=== PATIENT | female | born 1950 ===

== ENCOUNTER 2020-06-24 10:24 | Outpatient (REF) | payer MEDICARE, SELFPAY | END 2020-06-24 10:25 | disposition home or self-care (01) | LOC: HO.LAB 10:24 | PROVIDERS: PCP Internal Medicine; Visit Provider Internal Medicine | DX: Z20.828 Contact with and (suspected) exposure to other viral communicable diseases (principal) | CPT/HCPCS: C9803; U0003 ==

== ENCOUNTER 2020-07-06 16:45 | Outpatient (REF) | payer MEDICARE, SELFPAY | END 2020-07-06 16:46 | disposition home or self-care (01) | LOC: HO.LAB 16:45 | PROVIDERS: Visit Provider Internal Medicine | DX: Z20.828 Contact with and (suspected) exposure to other viral communicable diseases (principal) | CPT/HCPCS: C9803; U0003 ==

== ENCOUNTER 2020-11-22 12:28 | Emergency (ER) | payer MEDICARE, SELFPAY ==
[2020-11-22 12:30] VITALS: BP 115/68; PULSE 78; RESP 16; TEMP 36.9; O2SAT 98; BMI 30.7
--- NOTE | 2020-11-22 13:29 | ED.EAR ---
HPI - Ear Problem General Chief complaint: Ear Problems Stated complaint: R ear pain Time Seen by Provider: 11/22/20 12:58 Source: patient Mode of arrival: ambulatory Limitations: no limitations History of Present Illness HPI Narrative: 69-year-old female with a past medical history of COVID-19 in June 2020, fibromyalgia, postmenopausal and asthma presenting to the ED with complaints of ringing in the right ear over the past 3 weeks worse at nighttime. Reports that she followed up with an Urgent Care and they told her she had mild wax the left ear due to she had ringing bilateral ears they removed 3 little small pieces of wax and she reports the ring to the left ear completely resolved although she continues to have the right ear ringing. She reports that she followed up with her PCP and they gave her some drops in her ears and she use that as prescribed and she still continues to have the right ear ringing. Reports that she has a ear nose and throat doctor appointment on January 07 although she feels like she needs answer sooner than that. She denies any other symptoms complaints or concerns at this time. Complaint: other (Ringing in right ear) Location: right ear Duration: constant Severity: moderate Relieving factors: nothing Exacerbating factors: other (At nighttime) Context: recent illness (Reports she had COVID in June 2020) Discharge from ear: no Treatment prior to arrival: eardrops and attempt at ear wax removal Related Data Previous Rx's Medication Instructions Recorded gabapentin 600 mg tablet 600 mg PO TID #360 tab 07/01/20 methylprednisolone 4 mg tablets in See Rx Instructions PO PER PKG DIR 07/24/20 a dose pack #21 ea lorazepam [Ativan] 1 mg PO TID PRN #15 tab 11/22/20 Allergies Allergy/AdvReac Type Severity Reaction Status Date / Time oxycodone [Percocet] Allergy Unknown Unknown Verified 07/24/20 10:44 Review of Systems Review of Systems: Constitutional : No Weight loss, No Fever, No Chills, No Night Sweats, No Fatigue, NoMalaise ENT/Mouth: Positive ringing in the ear, No ear pain, No sore throat, No Difficulty swallowing Cardiovascular : No Chest Pain, No SOB, No Dyspnea on Exertion, No Orthopnea, NoEdema, No Palpitations Respiratory : No Cough, No Sputum, No Wheezing, No Dyspnea Gastrointestinal : No Nausea, No Vomiting, No abdominal pain, No Diarrhea, No blood streaked emesis, No coffee-ground emesis, No gross hematemesis, No blood streak stool, No gross hematochezia, No Melena Genitourinary : No irregular bleeding, No Dysuria, No Urinary Frequency, No Hematuria,No Urinary Incontinence, No Urgency, No Flank Pain Musculoskeletal : No joint pain, No Myalgias, No Joint Swelling Skin : No Skin Lesions, No rash Neuro : No Weakness, No Numbness, No Paresthesias, No Loss of Consciousness, NoDizziness, No Headache Psych : No Social Issues, Heme/Lymph: No Bruising, No Bleeding,No Lymphadenopathy Endocrine : No Polyuria, No Polydipsia, No Temperature Intolerance Yes all other systems are reviewed and are negative [facility] Past Medical History Attestation statement: The following information was validated with the patient. Medical History Asthma Fibromyalgia Surgical History H/O right knee surgery History of carpal tunnel release History of hysterectomy History of lumbar surgery Family History Family History Father Medical history unknown Mother Asthma Diabetes Hypertension Breast cancer Sister Breast cancer Social History Social History Alcohol intake: never Smoking Status: Never smoker Advance Directives: No Advance Directives Information Provided: No Physical Exam Vital Signs: Vital Signs: Last Vital Signs Temp 98.4 F 11/22/20 12:30 Pulse 78 11/22/20 12:30 Resp 16 11/22/20 12:30 BP 115/68 11/22/20 12:30 Pulse Ox 98 11/22/20 12:30 Body Mass Index 30.7 vital signs have been reviewed as normal and appeared to be correct. Blood pressure normal. Heart rate normal. Respiration rate normal. Temperature normal. Oxygen saturation normal. Appearance: Alert. Oriented X3. No acute distress. Head: Normal external exam. Normocephalic. Atraumatic. Eyes: PERRLA. EOMI. Conjunctiva and sclera normal. Eyelids normal. ENT: EAC normal. TM's Normal. Pharynx normal. Uvula midline. Moist mucous membranes. Neck: Normal inspection. Neck supple. FROM. No adenopathy. Thyroid Normal. No meningeal signs. No neck mass noted. CVS: Normal heart rate and rhythm. Heart sound normal. No murmurs noted. Pulses normal throughout. Respiratory: No respiratory distress. Painless inspiration. Breath sounds normal. No wheezes/rales/rhonchi noted. Chest nontender. No accessory muscle usage noted or decreased air movement noted. Back: Full range of motion noted. Skin: Skin warm and dry. Normal skin color. Normal skin turgor. No rashes/lesions/lacerations noted. Extremities: Extremities exhibit normal range of motion. Extremities nontender. Neuro: Oriented X 3. No motor deficit. No sensory deficit. Reflexes normal. Course Course Course Narrative: 69-year-old female who had COVID in June 2020 presenting to the ED with ringing to the right ear over the past 3 weeks despite being seen at the urgent care and had left earwax removal reports that the left ear ringing completely resolved after the 3 small pieces of earwax removal although she did not have anything removed to the right ear due to they told her she did not have any wax and she reports that the rain continues and is worsened at night. She denies any recent travel or any other symptoms or trauma to the ears. I attempted to remove small amount of ear wax that she had and there and she still has a ringing. She has no focal neuro deficits she denies any dizziness/nausea/vomiting. Therefore at this time will give her Ativan to go home and instructions to follow-up with ear nose and throat on January 07 as scheduled. Patient understands agrees with this plan. [facility] - Ear Medical Records Attestation: I reviewed the patient's medical records. Discharge Plan Discharge Clinical Impression: Right-sided tinnitus Patient Disposition: Home, Self-Care Instructions: Tinnitus (ED) Prescriptions: New lorazepam [Ativan] 1 mg tablet 1 mg PO TID PRN (Reason: anxiety) Qty: 15 RF: 0 No Action gabapentin 600 mg tablet 600 mg PO TID Qty: 360 RF: 8 methylprednisolone [Medrol (Dominic)] 4 mg tablets,dose pack See Rx Instructions PO PER PKG DIR Qty: 21 RF: 0 Referrals: Adan Johnson [Physician] - 1 day (Call to see if you can make a sooner follow-up appointment with this ear nose and throat doctor) Print Language: Omani
== END 2020-11-22 13:44 | disposition home or self-care (01) ==
PROVIDERS: Emergency Provider Emergency Medicine; PCP Internal Medicine
DX: H93.11 Tinnitus, right ear (principal); Z79.899 Other long term (current) drug therapy; Z86.16 Personal history of COVID-19
CPT/HCPCS: 99283

== ENCOUNTER 2021-01-14 07:57 | Outpatient (REF) | payer MEDICARE, SELFPAY | END 2021-01-14 07:58 | disposition home or self-care (01) | LOC: HO.LAB 07:57 | PROVIDERS: PCP Internal Medicine; Visit Provider Obstetrics & Gynecology | DX: R32 Unspecified urinary incontinence (principal) | CPT/HCPCS: 87086; 99212 ==

== ENCOUNTER 2021-01-19 13:45 | Outpatient (REF) | payer MEDICARE, SELFPAY ==
--- NOTE | ~2021-01-19 | CT_ITS ---
EXAMINATION: CT HEAD WITHOUT CONTRAST CLINICAL INFORMATION: Headache COMPARISON: None TECHNIQUE: Contiguous axial imaging was performed from the skull base to vertex without intravenous administration of contrast. This CT examination was performed using dose optimization techniques as appropriate, variously including the following: *Automated exposure control *Adjustment of mA and/or kV according to patient size (this includes techniques or standardized protocols for targeted exams where dose is matched to indication/reason for exam; i.e. extremities or head) *Use of iterative reconstruction technique DLP: 622 mGy-cm FINDINGS: There is no evidence of acute intracranial hemorrhage or territorial infarction. No abnormal mass effect or midline shift is seen. Pedraza to white matter differentiation is well preserved. No extra-axial fluid collections are identified. The ventricles are normal in size. There is no abnormal attenuation within the brain parenchyma. The osseous structures and soft tissues are normal. The mastoid air cells and visualized portions of the paranasal sinuses are well aerated. CT/CT head/brain wo con IMPRESSION: No acute intracranial process seen.
== END 2021-01-19 13:46 | disposition home or self-care (01) ==
LOC: HO.CT 13:45
PROVIDERS: Visit Provider Internal Medicine
DX: R51.9 Headache, unspecified (principal)
CPT/HCPCS: 70450

== ENCOUNTER 2021-01-20 08:30 | Outpatient (REF) | payer MEDICARE, SELFPAY ==
--- NOTE | ~2021-01-20 | MM_ITS ---
EXAMINATION: BONE DENSITOMETRY CLINICAL INDICATION: Asymptomatic menopausal state. COMPARISON: None (current study represents initial baseline exam). TECHNIQUE: Using a [employer] DXA System (software version: 13.1) manufactured by [employer], dual-energy x-ray absorptiometry was performed of the lumbar spine and left hip. The images are of good technical quality. Summary results are attached. FINDINGS: AP SPINE L1-L2 (excluding L3 and L4): The data of L1-L4 has been changed to exclude the L3 and L4 vertebral bodies, because degenerative changes L3 and hardware L4 may cause overestimation of lumbar spine density. BMD 1.142 g/cm2, Z-score 1.4, T-score -0.2, normal. LEFT FEMUR, NECK: BMD 0.781 g/cm2, Z-score -0.3, T-score -1.9, osteopenia. LEFT FEMUR, TOTAL: BMD 0.934 g/cm2, Z-score 0.7, T-score -0.6, normal. IDENTIFIED RISK FACTORS: Early menopause, secondary osteoporosis, anticonvulsant, hysterectomy, bilateral oophorectomy. HISTORY OF FRACTURE: None listed. MEDICATIONS: Vitamin D. MM/XR DEXA axial skeleton IMPRESSION: 1. DIAGNOSIS: Osteopenia based on the lowest T-score value of -1.9 in the femoral neck applying World Health Organization criteria. 2. 10-YEAR FRACTURE RISK PREDICTION, FRAX: Major osteoporotic fracture (clinical spine, forearm, hip or shoulder) 5.9%. Hip fracture 0.9%. 3. Treatment Recommendations: NOF guidelines recommend consideration for treatment in postmenopausal women and men age 50 and older presenting with the following: -A hip or vertebral (clinical or morphometric) fracture. -T-score less than or equal to -2.5 at the femoral neck or spine after appropriate evaluation to exclude secondary causes. -Low bone mass at the hip or spine and a 10-year fracture probability by FRAX of greater than or equal to 3% for hip fracture or greater than or equal to 20% for major osteoporotic fracture based on the [place] adapted WHO algorithm. 4. Other Recommendations: All treatment decisions require clinical judgment and consideration of individual patient factors, including patient preferences, comorbidities, previous drug use, risk factors not captured in the FRAX model (e.g. frailty, falls, vitamin D deficiency, increased bone turnover, interval significant decline in bone density) and possible under or overestimation of fracture risk by FRAX. Additional medical evaluation for secondary cause of low bone mineral density may be appropriate. FUTURE SCAN RECOMMENDATION: People with diagnosed cases of osteoporosis or at high risk for fracture should have regular bone mineral density tests. For patients eligible for Medicare, routine testing is allowed once every 2 years. The testing frequency can be increased to one year for patients who have rapidly progressing disease, those who are receiving or discontinuing medical therapy to restore bone mass, or have additional risk factors.
== END 2021-01-20 08:31 | disposition home or self-care (01) ==
LOC: HO.MAMMO 08:30
PROVIDERS: PCP Internal Medicine; Visit Provider Nurse Practitioner Family
DX: Z13.820 Encounter for screening for osteoporosis (principal); M85.80 Other specified disorders of bone density and structure, unspecified site; Z78.0 Asymptomatic menopausal state; Z90.722 Acquired absence of ovaries, bilateral; Z98.890 Other specified postprocedural states; Z79.899 Other long term (current) drug therapy
CPT/HCPCS: 77080

== ENCOUNTER 2021-02-01 09:54 | Outpatient (REF) | payer MEDICARE, SELFPAY | END 2021-02-01 09:55 | disposition home or self-care (01) | LOC: HO.LNP 09:54 | PROVIDERS: PCP Internal Medicine | DX: R32 Unspecified urinary incontinence (principal) | CPT/HCPCS: 87086; 99202 ==

== ENCOUNTER → 2021-03-23 08:53 | Outpatient (BNVA) | payer MEDICARE, SELFPAY | PROVIDERS: PCP Internal Medicine | DX: R32 Unspecified urinary incontinence (principal) | CPT/HCPCS: 51798; 99212 ==

== ENCOUNTER 2021-08-04 12:36 | Outpatient (REF) | payer MEDICARE, SELFPAY ==
[2021-08-04 12:53] LABS: MANUAL DIFF FLAG NO
[2021-08-04 13:39] LABS: Basophils Percent Auto 0.4 % (0-2); Eosinophils Percent Auto 0.2 % (0-4); Hematocrit 39.7 % (37.0-47.0); Hemoglobin 12.3 g/dl (12.0-16.0); Imm Gran Abs Auto 0.01 X10*3/uL (0.00-0.03); Imm Gran Pct Auto 0.2 % (0.0-0.4); Lymphocytes Absolute Auto 1.7 X10*3/uL (1.2-4.9); Lymphocytes Percent Auto 32.7 % (20-40); Mean Corpuscular Hemoglobin 27.3 pg (27.0-33.0); Mean Corpuscular Volume 88.2 fL (80.0-98.0); Mean Platelet Volume 11.7 fL (9.4-12.3); Monocytes Absolute Auto 0.3 X10*3/uL (0.1-1.2); Monocytes Percent Auto 4.8 % (2-11); Neutrophils Absolute Auto 3.2 x10*3/uL (2.0-8.3); Neutrophils Percent Auto 61.7 % (45-73); Platelet Count 188 X10*3/uL (160-400); Red Cell Distribution Width 13.7 % (11.0-16.0); White Blood Count 5.2 X10*3/uL (4.8-10.8)
[2021-08-04 13:54] LABS: Anion Gap 14 (12-20); Blood Urea Nitrogen 16 mg/dL (9-16); Carbon Dioxide 24 mmol/L (22-29); Chloride 107 mmol/L (96-108); Estimated Glomerular Filt Rate > 60; Glucose Random 94 mg/dL (60-115); Potassium 3.9 mmol/L (3.3-5.1); Sodium 141 mmol/L (135-145)
== END 2021-08-04 12:37 | disposition home or self-care (01) ==
LOC: HO.LAB 12:36
PROVIDERS: PCP Internal Medicine; Visit Provider Internal Medicine
DX: Z13.0 Encounter for screening for diseases of the blood and blood-forming organs and certain disorders involving the immune mechanism (principal); R51.9 Headache, unspecified
CPT/HCPCS: 36415; 80048; 85025

== ENCOUNTER 2021-08-09 08:05 | Outpatient (REF) | payer MEDICARE, SELFPAY ==
--- NOTE | ~2021-08-09 | US_ITS ---
EXAMINATION: US ABDOMEN COMPLETE CLINICAL INFORMATION: Unspecified abdominal pain. COMPARISON: None TECHNIQUE: Real-time imaging of the abdominal viscera. FINDINGS: PANCREAS: The pancreas is partially obscured by gas. Visualized head and the body of the pancreas is unremarkable. ABDOMINAL AORTA: The proximal, mid, and distal segments are normal in caliber. INFERIOR VENA CAVA: Unremarkable LIVER: The liver is normal in size. The liver contour is normal. There is increased liver echogenicity. No focal hepatic lesion. There is no intrahepatic biliary duct dilatation seen. GALLBLADDER: Surgically absent. COMMON BILE DUCT: Normal in caliber measuring 0.9 cm in diameter. RIGHT KIDNEY: Normal. No hydronephrosis. No renal calculi or focal parenchymal lesions. The kidney measures 8.7 cm in maximum dimension. LEFT KIDNEY: Normal. No hydronephrosis. No renal calculi or focal parenchymal lesions. The kidney measures 8.6 cm in maximum dimension. SPLEEN: Normal. The spleen measures 7.4 cm in maximum dimension. FREE FLUID: None. US/US abdomen complete IMPRESSION: Diffuse hepatic steatosis without focal lesion. Rest of the abdominal ultrasound is unremarkable.
== END 2021-08-09 08:06 | disposition home or self-care (01) ==
LOC: HO.US 08:05
PROVIDERS: PCP Internal Medicine; Visit Provider Internal Medicine
DX: R10.9 Unspecified abdominal pain (principal)
CPT/HCPCS: 76700

== ENCOUNTER → 2021-09-10 08:10 | Outpatient (BNVA) | payer MEDICARE, SELFPAY | PROVIDERS: PCP Internal Medicine; Referring Provider Internal Medicine; Visit Provider Nurse Practitioner Family | DX: Z13.89 Encounter for screening for other disorder (principal) | CPT/HCPCS: 99202 ==

== ENCOUNTER 2021-09-10 09:01 | Outpatient (REF) | payer MEDICARE, SELFPAY ==
[2021-09-11 13:43] LABS: H Pylori Breath Test Negative (Negative)
== END 2021-09-10 09:02 | disposition home or self-care (01) ==
LOC: HO.LNP 09:01
PROVIDERS: Visit Provider Nurse Practitioner Family
DX: R10.10 Upper abdominal pain, unspecified (principal); K58.2 Mixed irritable bowel syndrome; K21.9 Gastro-esophageal reflux disease without esophagitis; Z86.19 Personal history of other infectious and parasitic diseases
CPT/HCPCS: 83013; 99202

== ENCOUNTER 2021-09-13 10:41 | Outpatient (REF) | payer MEDICARE, SELFPAY ==
[2021-09-13 12:29] LABS: Alanine Aminotransferase 11 U/L (0-31); Albumin Level 4.2 g/dL (3.5-5.0); Alkaline Phosphatase 51 U/L (39-117); Aspartate Amino Transferase 17 U/L (5-31); Bilirubin Direct 0.2 mg/dL (0.0-0.5); Bilirubin Total 0.5 mg/dL (0.0-1.0); Lipase 29 U/L (8-78); Total Protein 6.5 g/dL (6.5-8.0)
[2021-09-13 13:12] LABS: Folate 14.7 ng/mL (> or = 4.0); Vitamin B12 327 pg/mL (200-900)
[2021-09-14 05:39] LABS: HBS Num1 0.04 mIU/mL (0-7.99); HBc Num1 0.05 S/CO (0.00-0.79); Hepatitis B Core Antibody Nonreactive (Nonreactive); ~HepC Num1 3.37 S/CO (0.00-0.79); ~Hepatitis B Surface Antibody NONREACTIVE (Nonreactive); ~Hepatitis C Antibody Reactive (Nonreactive)
[2021-09-14 05:42] LABS: HBsAGNum1 0.19 S/CO (0.00-0.99); Hepatitis B Surface Antigen Negative (Negative)
[2021-09-15 08:40] LABS: Hepatitis A Antibody IgM 0.42 Index (0-0.79); ~Hepatitis A Antibody IgM Nonreactive (Nonreactive)
[2021-09-16 07:51] LABS: HCV Log PCR <1.18 NOT DETECTED Log IU/mL (NOT DETECTED); HepC Viral Load <15 NOT DETECTED IU/mL (NOT DETECTED)
[2021-09-17 01:17] LABS: Vitamin D 25-OH, D2 <4 ng/mL; Vitamin D 25-OH, D3 18 ng/mL; Vitamin D 25-OH, Total 18 ng/mL (30-100)
[2021-09-17 13:40] LABS: Transglutaminase Ab IgG <1.0 U/mL; Transglutaminase IgA <1.0 U/mL
== END 2021-09-13 10:42 | disposition home or self-care (01) ==
LOC: HO.XRAY 10:41
PROVIDERS: PCP Internal Medicine; Visit Provider Nurse Practitioner Family
DX: R94.5 Abnormal results of liver function studies (principal); R19.7 Diarrhea, unspecified; E55.9 Vitamin D deficiency, unspecified; R14.0 Abdominal distension (gaseous); Z86.19 Personal history of other infectious and parasitic diseases
CPT/HCPCS: 36415; 80076; 82306; 82607; 82746; 83690; 84443; 86364; 86704; 86706; 86709; 86803; 87340; 87522

== ENCOUNTER → 2021-09-20 08:48 | Outpatient (BNVA) | payer MEDICARE, SELFPAY | PROVIDERS: PCP Internal Medicine | DX: N32.81 Overactive bladder (principal) | CPT/HCPCS: Q3014 ==

== ENCOUNTER → 2021-10-13 08:04 | Outpatient (BNVA) | payer MEDICARE, SELFPAY | PROVIDERS: PCP Internal Medicine; Visit Provider Obstetrics & Gynecology | DX: L72.3 Sebaceous cyst (principal) | CPT/HCPCS: 99212 ==

== ENCOUNTER → 2021-11-10 09:49 | Outpatient (BNVA) | payer MEDICARE, SELFPAY | PROVIDERS: PCP Internal Medicine; Referring Provider Internal Medicine; Visit Provider Nurse Practitioner Family | DX: R10.10 Upper abdominal pain, unspecified (principal); K58.1 Irritable bowel syndrome with constipation; K21.9 Gastro-esophageal reflux disease without esophagitis; Z79.899 Other long term (current) drug therapy; Z86.19 Personal history of other infectious and parasitic diseases | CPT/HCPCS: 99212 ==

== ENCOUNTER 2022-01-04 11:04 | Outpatient (REF) | payer MEDICARE, SELFPAY ==
[2022-01-04 13:24] LABS: Appearance Urine CLEAR; Color Urine YELLOW; Glucose Urine UA NEG (NEG); Leukocyte Esterase Urine 1+ (NEG); Nitrite Urine NEG (NEG); Specific Gravity - Urine 1.025 (1.005-1.025); Urine Blood NEG (NEG); Urine Ketones NEG (NEG); Urine Protein NEG (NEG-TRACE)
[2022-01-04 13:52] LABS: Squamous Epithelial Cell Urine 2+ /LPF
[2022-01-04 13:53] LABS: Bacteria Urine 1+ /LPF; RBC Urine 0 /HPF (0)
== END 2022-01-04 11:05 | disposition home or self-care (01) ==
LOC: HO.LAB 11:04
PROVIDERS: Visit Provider Urology
DX: R32 Unspecified urinary incontinence (principal)
CPT/HCPCS: 81001; 87086

== ENCOUNTER 2022-01-19 09:49 | Outpatient (REF) | payer MEDICARE, SELFPAY ==
[2022-01-19 10:44] LABS: Appearance Urine CLEAR; Color Urine YELLOW; Glucose Urine UA NEG (NEG); Leukocyte Esterase Urine 1+ (NEG); Nitrite Urine NEG (NEG); Specific Gravity - Urine >= 1.030 (1.005-1.025); Urine Blood NEG (NEG); Urine Ketones NEG (NEG); Urine Protein NEG (NEG-TRACE)
[2022-01-19 11:14] LABS: Mucus Urine 2+ /LPF; RBC Urine 0 /HPF (0); Squamous Epithelial Cell Urine 2+ /LPF
[2022-01-19 11:15] LABS: Bacteria Urine TRACE /LPF
== END 2022-01-19 09:50 | disposition home or self-care (01) ==
LOC: HO.LAB 09:49
PROVIDERS: PCP Internal Medicine; Visit Provider Urology
DX: R32 Unspecified urinary incontinence (principal)
CPT/HCPCS: 81001; 87086

== ENCOUNTER → 2022-01-25 08:26 | Outpatient (BNVA) | payer MEDICARE, SELFPAY | PROVIDERS: PCP Internal Medicine; Visit Provider Obstetrics & Gynecology | DX: Z01.419 Encounter for gynecological examination (general) (routine) without abnormal findings (principal); N95.2 Postmenopausal atrophic vaginitis; Z78.0 Asymptomatic menopausal state | CPT/HCPCS: 99212 ==

== ENCOUNTER 2022-01-28 09:00 | Outpatient (REF) | payer MEDICARE, SELFPAY ==
--- NOTE | ~2022-01-28 | XR_ITS ---
EXAMINATION: XR LUMBOSACRAL SPINE CLINICAL INFORMATION: Low back pain. COMPARISON: None TECHNIQUE: Three views of the lumbosacral spine. FINDINGS: There is normal lumbar lordosis. Mild loss of L2-L3 and L3-L4 disc height is seen. The vertebral heights, alignment are normal. No visible acute fracture, dislocation or lytic process seen. The SI joints are symmetrical and normal. There is a metallic device stabilizing L4-L5 spinous processes posteriorly. There is a radiopaque density in the right midabdomen in the paraspinal region question phlebolith versus stone. There are several phleboliths in the left pelvis and sherine in the right pelvis. XR/XR lumbar spine 2-3V IMPRESSION: Mild degenerative disc changes L2-L3, L3-L4 disc levels with ventral spondylosis. No visible acute fracture, dislocation or subluxation seen. There is metallic device stabilizing spinous processes at the L4-L5 disc level. No visible acute fracture or dislocation.
== END 2022-01-28 09:01 | disposition home or self-care (01) ==
LOC: HO.XRAY 09:00
PROVIDERS: PCP Internal Medicine; Visit Provider Internal Medicine
DX: M54.9 Dorsalgia, unspecified (principal)
CPT/HCPCS: 72100

== ENCOUNTER 2022-03-03 08:13 | Day surgery (SDC) | payer MEDICARE, SELFPAY ==
[2022-02-25 10:46] VITALS: BMI 30.9
[2022-03-03 08:44] VITALS: BMI 30.9
--- NOTE | 2022-03-03 08:51 | MHC.SHP ---
Pre-Procedural Eval Section A Date of Service: 03/03/22 Section B Chief Complaint: reflux disease, screening Relevant Family History (Specify if Yes): No Relevant Social History: None Present Medications: see Short Stay Collaborative assessment Medical History: Significant History (Asthma COVID-19 Fibromyalgia History of hepatitis C Obesity Sebaceous cyst Vaginal cysts) History of Previous Operations: Relevant previous surgery/procedure and date(s) (H/O right knee surgery History of carpal tunnel release History of hysterectomy History of lumbar surgery) Allergies: Allergies Allergy/AdvReac Type Severity Reaction Status Date / Time oxycodone [Percocet] Allergy Unknown Unknown Verified 02/23/22 09:26 Review of Systems Sugical H&P ROS: Negative: Constitution, Cardiovascular, Respiratory, Neurological, Psychiatric, Hem-Onc, Allergic/Immunologic, Gastrointestinal, Genitourinary, Musculoskeletal, Integumentary, Endocrine and Eyes/Ears/Nose/Throat Exam Surgical H&P Exam: Normal: HEENT, Normal: Heart, Normal: Lungs, Normal: Extremities, Normal: Abdomen, Normal: Skin and Normal: Neurological Plan Diagnosis/Plan: Unchanged I have reviewed the history and physical and performed a pertinent physical examination on my patient. No changes have occurred unless specified.
[2022-03-03] MEDS: Lactated Ringers 1,000 ML 50 ML IVCONT (09:14)
--- NOTE | 2022-03-03 09:14 | HO.ANESPROP2 ---
HPI - Anesthesia Eval Consult details Narrative: 71 yo female patient for EGD, Colonoscopy PMF Active Problems Active Problems: All Active Problems (Updated 02/25/22 @ 10:44 by Julee Lei RN) Cerumen debris on tympanic membrane (Acute) Tinnitus of both ears (Acute) Adult general medical exam (Acute) Post-menopausal (Acute) Urinary incontinence (Acute) Headache (Acute) Abdominal pain (Acute) Well woman exam (Acute) Atrophic vaginitis (Acute) Menopause (Acute) Lumbar pain (Acute) History of hepatitis C (Acute) Obesity (Acute) Fibromyalgia (Acute) Asthma (Acute) Past Medical History Medical History Asthma COVID-19 Fibromyalgia History of hepatitis C Obesity Sebaceous cyst Vaginal cysts Family History Family History Father Medical history unknown Mother Asthma Diabetes Hypertension Breast cancer Sister Breast cancer Family history of problems with anesthesia: No Surgical History Surgical History H/O right knee surgery History of carpal tunnel release History of hysterectomy History of lumbar surgery History of Problems with Anesthesia: No Social History Social History Housing: Apartment Alcohol intake: never Patient Tobacco Use Status: Never used Tobacco e-Cigarette/Vaping Use: Never Used Second Hand Smoke Exposure: No Use of substances other than those prescribed or required for medical reasons: No Are you DNR?: No Advance Directives: No Advance Directives Information Provided: Yes service: No Current occupational status: retired Cognitive needs: No Hearing needs: No Vision needs: Yes Meds Allergies Allergy/AdvReac Type Severity Reaction Status Date / Time oxycodone [Percocet] Allergy Unknown Unknown Verified 02/23/22 09:26 Active Medications: Current Medications Albuterol Sulfate (Albuterol Sulfate (0.083%) 2.5 Mg/3 Ml Vial.Neb) 2.5 mg INHALE ONCE PRN PRN Reason: Shortness of Breath/Wheezing Lactated Ringer's (Lr) 1,000 mls @ 50 mls/hr IVCONT .Q20H JUAN Lactated Ringer's (Lr) 1,000 mls @ 50 mls/hr IVCONT .Q20H [facility] Last Admin: 03/03/22 09:14 Dose: 50 mls/hr Exam Exam Date and Time: March 03, 2022 0914 Height,Weight and Vital Signs: Height 4 ft 10 in Weight 67.132 kg Airway Mallampati Class: III TM Dist: >3cm Neck ROM: Full Loose/Missing/Broken Teeth: No (Per patient) Heart: RRR Lungs: CTAB Assessment and Plan Assessment Anesthesia Assessment: Anesthesia Plan Discussed and Chart Reviewed Final Anesthetic Review Family History of Problems with Anesthesia: No History of Problems with Anesthesia: No NPO: Yes ASA Class: II Final Preanesthetic Review: No Changes in Pt Med Stat, Meds/Allgs Chart Reviewed, Consent Obtained/Reviewed and Anes Risks/Benef Reviewed Patient Risk: Intermediate Procedure Risk: Low Assessment/Block/Sedation in SS: Assess/Block/Sedation-SS Anesthetic Plan Anesthetic Plan: MAC: Disposition: Standard PACU
[2022-03-03 09:15] VITALS: BP 110/55; PULSE 88; RESP 18; TEMP 36; O2SAT 98
--- NOTE | 2022-03-03 09:44 | W.PM.OPN ---
Operative Note Operative Note Date of Service: 03/03/22 Narrative: Operative Information Procedure Description: EGD, Colonoscopy Indication: GERD, screening Anesthesia: MAC FLEXIBLE TRANSORAL UPPER GASTROINTESTINAL ENDOSCOPY AND COLONOSCOPY PROCEDURE NOTE UPPER ENDOSCOPY Consent: Indications for the procedure and potential complications of bleeding, perforation, reaction to medications and missed diagnosis were discussed with the patient and informed consent was obtained. Instrument: Olympus GIF H 190 J mid size upper endoscope Monitoring: Vital signs and clinical assessment, continuous EKG monitoring, Pulse oximetry, Carbon Dioxide monitoring and blood pressure monitoring were done throughout the procedure. Procedure: The patient was placed in the left lateral decubitis position and pre-procedure medications were administered and a bite block was placed. The endoscope was inserted into the mouth and advanced under direct vision to the third part of duodenum. A careful inspection was made as the upper endoscope was withdrawn including a retroflexed examination of the proximal stomach; Findings and interventions are described below. Findings: Larynx:normal Esophagus: GE junction at 35 cm, diaphragm hiatus at 35 cm, mild esophagitis bx taken from GEJ, distal and proxiaml esophagus Stomach: Nodular mucosa. Biopsies were obtained to r/o h pylori. Grade 2 flap valve on retroflexed examination of the cardia. Duodenum: Normal bulb and descending duodenum, Intervention: Biopsies as noted above COLONOSCOPY Instrument: Olympus variable stiffness pediatric scope 190L Colonoscopy Monitoring: Vital signs and clinical assessment, continuous EKG monitoring, Pulse oximetry, Carbon Dioxide monitoring and blood pressure monitoring were done throughout the procedure. Colon withdrawal time was 10 minutes. Procedure: The patient was placed in the left lateral decubitis position and pre-procedure medications were administered. After a digital rectal examination of the ano-rectum, the video colonoscope was inserted into the rectum and advanced through the colon to the cecum/TI. The colonoscope was slowly withdrawn in a retrograde panoramic fashion and the colon mucosa was carefully examined including a retroflexed view of the rectum. Findings and interventions are described below. Procedure Difficulty:moderate, had to turn due to tortuous and redundant colon Findings: Terminal Ileum-not intubated Cecum:normal Ascending Colon: normal Transverse Colon -normal Descending Colon:normal Sigmoid Colon: diverticulosis Rectum: Retroflexion with small internal hemorrhoids, grade I Anorectum - normal Colon preparation: [place] Bowel Preparation Scale Right colon; 2 Transverse colon: 2 Left colon; 2 (0 = Unprepared colon segment with mucosa not seen due to solid stool that cannot be cleared. 1 = Portion of mucosa of the colon segment seen, but other areas of the colon segment not well seen due to staining, residual stool and/or opaque liquid. 2 = Minor amount of residual staining, small fragments of stool and/or opaque liquid, but mucosa of colon segment seen well. 3 = Entire mucosa of colon segment seen well with no residual staining, small fragments of stool or opaque liquid) Impression and Post Procedure Diagnosis: Endoscopy Findings: gastritis mild esophagitis Colonoscopy Findings: internal hemorrhoids diverticular disease redundant tortuous colon Plan: Await Pathology results Repeat Colonoscopy in 10 years or earlier if clinically indicated High fiber diet leaflet avoid straining at stool, epsom salts and sitz bath, anusol supps or cream if H pylori pos then treat Above findings were reviewed with the patient and relevant handouts were provided if indicated.
[2022-03-03 10:52] VITALS: BP 104/60; PULSE 70; RESP 16; TEMP 36.1; O2SAT 97
[2022-03-03 11:08] VITALS: BP 118/64; PULSE 70; RESP 16; TEMP 36.1; O2SAT 97
== END 2022-03-03 12:00 | disposition home or self-care (01) ==
PROVIDERS: PCP Internal Medicine; Visit Provider Internal Medicine Gastroenterology
PROC: (CPT 43239; principal; 2022-03-03 09:40)
DX: Z12.11 Encounter for screening for malignant neoplasm of colon (principal); K57.30 Diverticulosis of large intestine without perforation or abscess without bleeding; K64.0 First degree hemorrhoids; K58.1 Irritable bowel syndrome with constipation; K21.9 Gastro-esophageal reflux disease without esophagitis; K29.50 Unspecified chronic gastritis without bleeding; K20.80 Other esophagitis without bleeding; K44.9 Diaphragmatic hernia without obstruction or gangrene; M79.7 Fibromyalgia; J45.909 Unspecified asthma, uncomplicated; E66.9 Obesity, unspecified; Z68.30 Body mass index [BMI] 30.0-30.9, adult; R79.89 Other specified abnormal findings of blood chemistry; Z79.899 Other long term (current) drug therapy; Z88.8 Allergy status to other drugs, medicaments and biological substances; Z86.19 Personal history of other infectious and parasitic diseases; Z86.16 Personal history of COVID-19
CPT/HCPCS: 43239; G0121; 88305; 88342

== ENCOUNTER → 2022-03-18 08:06 | Outpatient (BNVA) | payer MEDICARE, SELFPAY | PROVIDERS: PCP Internal Medicine; Visit Provider Nurse Practitioner Family | DX: K21.9 Gastro-esophageal reflux disease without esophagitis (principal); K59.04 Chronic idiopathic constipation; K58.1 Irritable bowel syndrome with constipation; Z98.890 Other specified postprocedural states | CPT/HCPCS: 99212 ==

== ENCOUNTER → 2022-05-26 10:56 | Outpatient (BNVA) | payer MEDICARE, SELFPAY | PROVIDERS: PCP Internal Medicine; Visit Provider Urology | DX: N32.81 Overactive bladder (principal); R32 Unspecified urinary incontinence | CPT/HCPCS: Q3014 ==

== ENCOUNTER → 2022-07-18 07:53 | Outpatient (BNVA) | payer MEDICARE, SELFPAY | PROVIDERS: PCP Internal Medicine; Referring Provider Internal Medicine; Visit Provider Nurse Practitioner Family | DX: K21.9 Gastro-esophageal reflux disease without esophagitis (principal); K58.1 Irritable bowel syndrome with constipation | CPT/HCPCS: 99212 ==

== ENCOUNTER 2022-08-26 12:49 | Outpatient (REF) | payer MEDICARE, SELFPAY ==
--- NOTE | ~2022-08-26 | CT_ITS ---
EXAMINATION: CT HEAD WITHOUT CONTRAST CLINICAL INFORMATION: R51.9 - Headache, unspecified COMPARISON: CT had noncontrast 01/19/2021 TECHNIQUE: Contiguous axial imaging was performed from the skull base to vertex without intravenous administration of contrast. Additional 2-D coronal and sagittal reformatted images are generated on the CT workstation and uploaded to PACS. This CT examination was performed using dose optimization techniques as appropriate, variously including the following: *Automated exposure control *Adjustment of mA and/or kV according to patient size (this includes techniques or standardized protocols for targeted exams where dose is matched to indication/reason for exam; i.e. extremities or head) *Use of iterative reconstruction technique DLP: 699 mGy-cm FINDINGS: There is no intracranial hemorrhage, hematoma, or extra-axial fluid collection. The ventricles are normal in size. There is no hydrocephalus, edema, or mass effect. The valdivia-white matter differentiation appears well preserved . Again, there is incidental anterior falx calcification. There is no visible acute territorial infarct or mass lesion. The calvarium appears intact. There is no pneumocephalus or orbital emphysema. The visualized sinuses and middle ears and mastoid air cells show no significant mucosal thickening. There are no air-fluid levels. CT/CT head/brain wo IV con IMPRESSION: No acute intracranial abnormality.
== END 2022-08-26 12:50 | disposition home or self-care (01) ==
LOC: HO.CT 12:49
PROVIDERS: PCP Internal Medicine; Visit Provider Internal Medicine
DX: R51.9 Headache, unspecified (principal)
CPT/HCPCS: 70450

== ENCOUNTER 2022-09-12 08:04 | Outpatient (REF) | payer MEDICARE, SELFPAY ==
[2022-09-12 11:01] LABS: Folate 14.3 ng/mL (> or = 4.0); Vitamin B12 406 pg/mL (200-900)
[2022-09-17 14:28] LABS: Vitamin D 25-OH, D2 <4 ng/mL; Vitamin D 25-OH, D3 33 ng/mL; Vitamin D 25-OH, Total 33 ng/mL (30-100)
== END 2022-09-12 08:05 | disposition home or self-care (01) ==
LOC: HO.LAB 08:04
PROVIDERS: PCP Internal Medicine; Referring Provider Internal Medicine; Visit Provider Nurse Practitioner Family
DX: R19.7 Diarrhea, unspecified (principal); E55.9 Vitamin D deficiency, unspecified; K58.9 Irritable bowel syndrome, unspecified; K21.9 Gastro-esophageal reflux disease without esophagitis; K59.04 Chronic idiopathic constipation
CPT/HCPCS: 36415; 82306; 82607; 82746; 99212

== ENCOUNTER 2022-10-03 08:32 | Outpatient (REF) | payer MEDICARE, SELFPAY ==
[2022-10-03 09:53] LABS: Glucose Random 95 mg/dL (60-115)
[2022-10-03 10:02] LABS: Erythrocyte Sedimentation Rate 12 MM/HR (0-20)
[2022-10-03 10:23] LABS: Thyroid Stimulating Hormone 1.72 uIU/mL (0.32-4.0); Vitamin B12 480 pg/mL (200-900)
[2022-10-05 13:39] LABS: Transglutaminase Ab IgG <1.0 U/mL; Transglutaminase IgA <1.0 U/mL
[2022-10-05 14:07] LABS: Ceruloplasmin 22 mg/dL (18-53)
[2022-10-05 15:08] LABS: Anti Nuclear Antibody Screen NEGATIVE (NEGATIVE)
[2022-10-06 23:38] LABS: Prot Elec - Albumin 4.1 g/dL (3.8-4.8); Prot Elec - Alpha1 0.3 g/dL (0.2-0.3); Prot Elec - Alpha2 0.6 g/dL (0.5-0.9); Prot Elec - Beta 1 0.4 g/dL (0.4-0.6); Prot Elec - Beta 2 0.3 g/dL (0.2-0.5); Prot Elec - Gamma 0.6 g/dL (0.8-1.7); Prot Elec - Total Protein 6.3 g/dL (6.1-8.1)
== END 2022-10-03 08:33 | disposition home or self-care (01) ==
LOC: HO.LAB 08:32
PROVIDERS: PCP Internal Medicine; Visit Provider Psychiatry & Neurology Neurology
DX: R51.9 Headache, unspecified (principal); R53.83 Other fatigue; G62.9 Polyneuropathy, unspecified
CPT/HCPCS: 36415; 82390; 82607; 82947; 84165; 84443; 85652; 86038; 86039; 86364

== ENCOUNTER 2022-10-13 08:34 | Outpatient (REF) | payer MEDICARE, SELFPAY ==
[2022-10-16 23:08] LABS: Prot Elec - Albumin 4.5 g/dL (3.8-4.8); Prot Elec - Alpha1 0.3 g/dL (0.2-0.3); Prot Elec - Alpha2 0.7 g/dL (0.5-0.9); Prot Elec - Beta 1 0.4 g/dL (0.4-0.6); Prot Elec - Beta 2 0.3 g/dL (0.2-0.5); Prot Elec - Gamma 0.7 g/dL (0.8-1.7); Prot Elec - Total Protein 6.7 g/dL (6.1-8.1)
[2022-10-17 14:59] LABS: IgA 84 mg/dL (70-320); IgG 849 mg/dL (600-1540); IgM 51 mg/dL (50-300)
== END 2022-10-13 08:35 | disposition home or self-care (01) ==
LOC: HO.LAB 08:34
PROVIDERS: PCP Internal Medicine; Visit Provider Psychiatry & Neurology Neurology
DX: G62.9 Polyneuropathy, unspecified (principal)
CPT/HCPCS: 36415; 82784; 84165; 86334

== ENCOUNTER 2022-10-18 15:05 | Outpatient (REF) | payer MEDICARE, SELFPAY ==
--- NOTE | ~2022-10-18 | MR_ITS ---
EXAMINATION: MR angio head wo con, MR head/brain wo/w con CLINICAL INFORMATION: Pulsatile tinnitus, headache COMPARISON: CT head without contrast 08/26/2022 TECHNIQUE: Multiplanar multisequence MR imaging of the brain was obtained without and following the administration of 7 mL Gadavist intravenous contrast. Noncontrast [id number] MRA of the head was also the performed. FINDINGS: There is no acute infarct on diffusion-weighted imaging. There is no intracranial hemorrhage on iron-sensitive imaging. No extra-axial collection or mass effect/herniation. There are several scattered foci of nonspecific supratentorial white matter T2/FLAIR signal abnormality. The 7th and 8th cranial nerve complexes are symmetric in course, caliber, and enhancement characteristics. Major inner ear structures including the cochlea, semicircular canals, and vestibule are symmetric in morphology and demonstrate normal CSF signal. No enhancing intracanalicular or cerebellopontine angle mass lesion is visualized. No hydrocephalus. The ventricles are normal in morphology and size. No abnormal parenchymal or extra-axial enhancement. The midline structures are normal. The cerebellar tonsils are normally positioned. The craniocervical junction is normal. Marrow signal is within normal limits. The visualized soft tissues are without significant abnormality. No signal abnormality within the paranasal sinuses or within the mastoid air cells. Normal flow-related signal within the anterior circulation without evidence of focal stenosis or occlusion of the intradural internal carotid, middle cerebral, or anterior cerebral arteries. Normal flow-related signal within the posterior circulation without evidence of focal stenosis or occlusion of the intradural vertebral, basilar, superior cerebellar, or posterior cerebral arteries. No demonstrated intradural aneurysms. No evidence of arteriovenous shunting lesion MR/MR head/brain wo/w con IMPRESSION: 1. Unremarkable contrast enhanced MRI of the brain. No evidence of retrocochlear pathology or etiology for pulsatile tinnitus is identified. 2. Normal MRA of the head. No arteriovenous shunting lesion is identified.
--- NOTE | ~2022-10-18 | MR_ITS ---
EXAMINATION: MR angio head wo con, MR head/brain wo/w con CLINICAL INFORMATION: Pulsatile tinnitus, headache COMPARISON: CT head without contrast 08/26/2022 TECHNIQUE: Multiplanar multisequence MR imaging of the brain was obtained without and following the administration of 7 mL Gadavist intravenous contrast. Noncontrast [id number] MRA of the head was also the performed. FINDINGS: There is no acute infarct on diffusion-weighted imaging. There is no intracranial hemorrhage on iron-sensitive imaging. No extra-axial collection or mass effect/herniation. There are several scattered foci of nonspecific supratentorial white matter T2/FLAIR signal abnormality. The 7th and 8th cranial nerve complexes are symmetric in course, caliber, and enhancement characteristics. Major inner ear structures including the cochlea, semicircular canals, and vestibule are symmetric in morphology and demonstrate normal CSF signal. No enhancing intracanalicular or cerebellopontine angle mass lesion is visualized. No hydrocephalus. The ventricles are normal in morphology and size. No abnormal parenchymal or extra-axial enhancement. The midline structures are normal. The cerebellar tonsils are normally positioned. The craniocervical junction is normal. Marrow signal is within normal limits. The visualized soft tissues are without significant abnormality. No signal abnormality within the paranasal sinuses or within the mastoid air cells. Normal flow-related signal within the anterior circulation without evidence of focal stenosis or occlusion of the intradural internal carotid, middle cerebral, or anterior cerebral arteries. Normal flow-related signal within the posterior circulation without evidence of focal stenosis or occlusion of the intradural vertebral, basilar, superior cerebellar, or posterior cerebral arteries. No demonstrated intradural aneurysms. No evidence of arteriovenous shunting lesion MR/MR angio head wo con IMPRESSION: 1. Unremarkable contrast enhanced MRI of the brain. No evidence of retrocochlear pathology or etiology for pulsatile tinnitus is identified. 2. Normal MRA of the head. No arteriovenous shunting lesion is identified.
== END 2022-10-18 15:06 | disposition home or self-care (01) ==
LOC: HO.MRI 15:05
PROVIDERS: PCP Internal Medicine; Visit Provider Psychiatry & Neurology Neurology
DX: R51.0 Headache with orthostatic component, not elsewhere classified (principal); Q27.30 Arteriovenous malformation, site unspecified
CPT/HCPCS: 70544; 70553; A9585

== ENCOUNTER 2022-11-06 10:45 | Emergency (ER) | payer MEDICARE, SELFPAY ==
--- NOTE | ~2022-11-06 | XR_ITS ---
EXAMINATION: XR chest 2V CLINICAL INFORMATION: Cough COMPARISON: Prior chest x-ray 2019 TECHNIQUE: XR chest 2V Lungs and Zonia: Mild interstitial opacification left lung base, could be a pericardial fat pad versus mild interstitial pneumonitis. Pleura: Normal. Costophrenic angles are sharp. No pneumothorax. Heart: The heart is normal in size. Mediastinum: The mediastinum is within normal limits.. Bones: Skeletal structures included are normal for patient's age. XR/XR chest 2V IMPRESSION: Mild opacification at left lung base, could be a pericardial fat pad versus mild interstitial pneumonitis. This is indeterminant appearance for COVID. Low-dose chest CT which has high sensitivity, could be utilized if clinically indicated.
[2022-11-06 11:09] VITALS: BP 116/72; PULSE 89; RESP 18; TEMP 37; O2SAT 95; BMI 31.3
--- NOTE | 2022-11-06 12:02 | ED.URI ---
HPI - URI/Sore Throat General Chief Complaint: Upper Respiratory Symptoms Stated Complaint: 11/05 Covid positive Time Seen by Provider: 11/06/22 11:52 Source: patient Mode of arrival: ambulatory Limitations: no limitations History of Present Illness HPI Narrative: 71 yo female with history of fibromyalgia, asthma presents to the ER with 3 days of cough, fever, headache, fatigue and wheezing. Patient took a home test for COVID which was positive yesterday. Patient reports she spoke to her primary care doctor on-call and they recommended she come into the ER for consultation for Paxlovid. Patient denies any chest pain or shortness of breath or leg swelling or leg pain Related Data Previous Rx's Medication Instructions Recorded famotidine 20 mg tablet (Pepcid) 20 mg PO BEDTIME #90 tabs 03/18/22 sennosides 8.6 mg tablet (Natural 17.2 mg PO BEDTIME constipation 03/18/22 Senna Laxative) #60 tabs oxybutynin chloride 10 mg 10 mg PO DAILY OAB 90 days #90 tabs 05/26/22 tablet,extended release 24 hr polyethylene glycol 3350 17 17 g PO DAILY #510 grams 07/18/22 gram/dose oral powder (Miralax) tizanidine 4 mg tablet 4 mg PO Q8H PRN headache #60 tabs 08/04/22 sumatriptan succinate 25 mg tablet 25 mg PO Q2-4H PRN migraine 09/02/22 headache #20 tabs pantoprazole 40 mg tablet,delayed 40 mg PO DAILY #90 tabs 09/12/22 release cholecalciferol (vitamin D3) 50 100 mcg PO DAILY #180 caps 09/13/22 mcg (2,000 unit) capsule cefuroxime axetil 250 mg tablet 250 mg PO BID #14 tabs 11/06/22 nirmatrelvir 300 mg (150 mg See Rx Instructions PO .COMPLEX 11/06/22 x2)-ritonavir 100 mg tablet,dose #30 ea pack(EUA) (Paxlovid) Allergies Allergy/AdvReac Type Severity Reaction Status Date / Time oxycodone [Percocet] Allergy Unknown Unknown Verified 11/06/22 11:09 Review of Systems Review of Systems: Yes all other systems are reviewed and are negative Constitutional: Constitutional: Reports no additional constitutional complaints, Denies body ache(s), Denies chills, Reports fatigue, Reports fever(s), Reports headache(s) and Denies weakness Eyes: Eyes: Reports no additional eye complaints and Denies change in vision ENT: Reports system reviewed and no additional complaints, except as documented, Denies dizziness, Reports headache(s), Denies nasal congestion, Denies nasal discharge and Denies neck pain Cardiovascular: Cardiovascular: Reports no additional cardiovascular complaints, Denies chest pain, Denies leg edema and Denies dyspnea Respiratory: Respiratory: Reports no additional respiratory complaints, Reports cough and Denies dyspnea Gastrointestinal: Gastrointestinal: Reports no additional gastrointestinal complaints, Denies abdominal pain, Denies diarrhea, Denies nausea and Denies vomiting Genitourinary: Genitourinary: Reports no additional female genitourinary complaints and Denies urinary incontinence Musculoskeletal: Musculoskeletal: Reports no additional musculoskeletal complaints, Denies back pain, Denies arthralgias, Denies joint swelling, Denies neck pain, Denies numbness and Denies tingling Integumentary/Breasts: Skin/Breast: Reports system reviewed and no additional complaints, except as docu and Denies rash Neurologic: Reports system reviewed and no additional complaints, except as documented, Denies Abnormal speech present, Denies dizziness, Reports headache(s), Denies numbness, Denies tingling and Denies weakness Endocrine: Endocrine: Reports fatigue PMFSH Past Medical History Attestation statement: The following information was validated with the patient. Source: old records reviewed and nursing notes reviewed Medical History Asthma COVID-19 Fibromyalgia History of hepatitis C Obesity Sebaceous cyst Vaginal cysts Surgical History H/O right knee surgery History of carpal tunnel release History of hysterectomy History of lumbar surgery Family History Family History Father Medical history unknown Mother Asthma Diabetes Hypertension Breast cancer Sister Breast cancer Social History Social History Housing: Apartment Alcohol intake: never Patient Tobacco Use Status: Never used Tobacco e-Cigarette/Vaping Use: Never Used Second Hand Smoke Exposure: No Advance Directives: Yes Advance Directives on File: Yes Advance Directives Date on File: 11/19/21 service: No Current occupational status: retired Cognitive needs: No Hearing needs: No Vision needs: Yes Physical Exam Vital Signs: Vital Signs: Last Vital Signs Temp 98.6 F 11/06/22 11:09 Pulse 89 11/06/22 11:09 Resp 18 11/06/22 11:09 BP 116/72 11/06/22 11:09 Pulse Ox 95 11/06/22 11:09 O2 Del Method Room Air 11/06/22 11:09 BMI result Body Mass Index 31.3 Const: General: cooperative, healthy appearing, comfortable and no acute distress Orientation/consciousness: patient oriented x3 Limitations: no limitations HEENT: Head: Yes normal to inspection Ears: hearing grossly normal bilaterally and TM's normal bilaterally General nose exam: Normal external nose present Face and sinus: Yes normal facial exam Mouth: Normal oral and palatal mucosa present Throat: Yes posterior oropharynx normal, Yes tonsils normal and Yes uvula midline Eyes: General: appearance normal, both eyes and all related structures Pupils: Equal, round and reactive pupils present Neck: Neck: Yes normal visual inspection, Yes full ROM, Yes no lymphadenopathy and Yes no meningeal signs Chest: Chest palpation & inspection: normal inspection of the chest Resp: Effort & Inspection: normal respiratory effort Auscultation: clear to auscultation bilaterally Cardio: Rate: regular rate Rhythm: regular rhythm Peripheral pulses: Peripheral pulses 2+ throughout GI: Inspection: Yes normal to inspection Palpation (GI): Soft to palpation and nontender Auscultation: normal bowel sounds Back/Spine/Pelvis: Thoracic/Lumbar Spine: thoracic and lumbar spine normal to inspection Skin: General skin exam: no rashes or lesions noted Neuro: General: patient oriented x3, no meningeal signs, no focal motor deficits and normal sensation to monofilament Cranial nerves: Yes Equal, round and reactive pupils present Cognition (Neuro): normal cognition Speech: No Abnormal speech present Gait exam (Neuro): Normal gait present Motor exam (neuro): 5/5 motor strength present throughout Extrem: General: Yes normal to inspection, Yes no pedal edema and Yes no calf tenderness Course Course Course Narrative: 1230-patient given info she on Paxlovid Reevaluation(s) Reevaluation #1: 1430-I reviewed the patient's labs which show normal renal function. Patient wants to move forward with the starting paxlovid. Patient has an x-ray which shows a left lower lobe infiltrate. Patient has no hypoxia or tachypnea. Patient is speaking full sentences. Patient is overall nontoxic. I will start her on a course of antibiotics. Reviewed worrisome signs and symptoms of when to return to the emergency room. Comfortable plan for discharge home. Medical Decision Making Medical Decision Making [facility] Narrative: 71-year-old female known COVID positive here with cough, fever, headache, fatigue, wheezing. Patient is interested in Paxlovid Will need COVID screen, chest x-ray and lab Differential Diagnosis Differential Diagnoses: The differential diagnosis associated with the presentation includes viral syndrome Low concern for PE or pneumonia Lab Data [facility] Lab Attestation statement: I reviewed the patient's lab results. 11/06/22 12:51 11/06/22 12:51 Labs: Lab Results 11/06/22 11/06/22 11/06/22 Range/Units 12:00 12:51 12:51 WBC 4.5 L (4.8-10.8) X10*3/uL RBC 4.48 (4.20-5.50) X10*6/uL Hgb 12.2 (12.0-16.0) g/dl Hct 40.1 (37.0-47.0) % MCV 89.5 (80.0-98.0) fL MCH 27.2 (27.0-33.0) pg MCHC 30.4 L (31.0-35.0) g/dl RDW 14.0 (11.0-16.0) % Plt Count 122 L D (160-400) X10*3/uL MPV 11.0 (9.4-12.3) fL Immature Gran % (Auto) 0.4 (0.0-0.4) % Neut % (Auto) 61.7 (45-73) % Lymph % (Auto) 27.9 (20-40) % [place] % (Auto) 9.4 (2-11) % Eos % (Auto) 0.2 (0-4) % Baso % (Auto) 0.4 (0-2) % Lymph # (Auto) 1.3 (1.2-4.9) X10*3/uL [place] # (Auto) 0.4 (0.1-1.2) X10*3/uL Eos # (Auto) 0.0 (0.0-0.4) X10*3/uL Baso # (Auto) 0.0 (0.0-0.2) X10*3/uL Abs Immat Gran (auto) 0.02 (0.00-0.03) X10*3/uL Absolute Neuts (auto) 2.8 (2.0-8.3) x10*3/uL Absolute Nucleated RBC 0.000 (0.0-0.012) X10*3/uL Nucleated RBC % (auto) 0.0 (0.0-0.2) /100WBC Smear Tech's Comments VERIFIED Sodium 142 (135-145) mmol/L Potassium 4.3 (3.3-5.1) mmol/L Chloride 108 (96-108) mmol/L Carbon Dioxide 26 (22-29) mmol/L Anion Gap 12 (12-20) BUN 10 (9-16) mg/dL Creatinine 0.77 (0.5-1.4) mg/dL Estim Creat Clear Calc 56.3 Estimated GFR > 60 Random Glucose 95 (60-115) mg/dL Calcium 9.4 (8.4-10.2) mg/dL COVID-19 (MARY) Positive A (Negative) COVID-19 Clin Com See Note Independent Interpretation I performed an independent interpretation of an: Plain X-Ray Interpretation: I independently reviewed the x-ray and agree with radiologist's report Radiology Impression Discussion of test interpretation with radiology: I have reviewed the radiologist's reading. Radiologist Impression: [place] [id number] XRay Report Signed Patient: Shivani Hernandez I MR#: [id number] : 1950 Acct:[id number] Age/Sex: 71 / F ADM Date: 11/06/22 Loc: .ED Attending Dr: Ordering Physician: Homar Stiles MD Date of Service: 11/06/22 Procedure(s): XR chest 2V Accession Number(s): [id number] cc: Homar Stiles MD~ EXAMINATION: XR chest 2V CLINICAL INFORMATION: Cough COMPARISON: Prior chest x-ray 2019? TECHNIQUE: XR chest 2V Lungs and Zonia: Mild interstitial opacification left lung base, could be a pericardial fat pad versus mild interstitial pneumonitis. Pleura: Normal. Costophrenic angles are sharp. No pneumothorax. Heart: The heart is normal in size. Mediastinum: The mediastinum is within normal limits.. Bones: Skeletal structures included are normal for patient's age. XR/XR chest 2V IMPRESSION: Mild opacification at left lung base, could be a pericardial fat pad versus mild interstitial pneumonitis. This is indeterminant appearance for COVID. ? Low-dose chest CT which has high sensitivity, could be utilized if clinically indicated. Prescription Management I considered prescription management with: Antiviral See discussion and course Discharge Plan Discharge Clinical Impression: COVID-19 Patient Disposition: Home, Self-Care Instructions: COVID-19 (Coronavirus Disease 2019) (ED) Additional Instructions: Quarantine for 5 days Alternate Motrin and Tylenol if able as needed for pain or fever Increase fluids, rest We spoke about Paxlovid which is a current available medication for the treatment of COVID. This medication is not FDA approved and has an emergency use authorization. You received information about the medication and wanted to pursue treatment. Common side effects of this medication are vomiting and diarrhea. If the side effects occur please discontinue the medication. Your x-ray shows a small area of pneumonia in your left lung. Please take the antibiotic as prescribed. Return for shortness of breath, chest pain, fever which does not respond to Motrin or Tylenol Prescriptions: New Paxlovid (EUA) 300 mg (150 mg x 2)-100 mg tablets,dose pack See Rx Instructions .ROUTE .COMPLEX Qty: 30 0RF Rx Instructions: take TWO 150 mg tablets of nirmatrelvir with ONE 100 mg tablet of ritonavir twice daily for 5 days cefuroxime axetil 250 mg tablet 250 mg PO BID Qty: 14 0RF No Action cholecalciferol (vitamin D3) 50 mcg (2,000 unit) capsule 100 mcg PO DAILY Qty: 180 3RF tizanidine 4 mg tablet 4 mg PO Q8H PRN (Reason: headache) Qty: 60 3RF sumatriptan succinate 25 mg tablet 25 mg PO Q2-4H PRN (Reason: migraine headache) Qty: 20 2RF Rx Instructions: do not exceed 8 doses per 24 hrs pantoprazole 40 mg tablet,delayed release (DR/EC) 40 mg PO DAILY Qty: 90 2RF Rx Instructions: take one tablet half an hour before breakfast oxybutynin chloride 10 mg tablet extended release 24hr 10 mg PO DAILY 90 Days Qty: 90 2RF sennosides [Natural Senna Laxative] 8.6 mg tablet 17.2 mg PO BEDTIME Qty: 60 3RF famotidine [Pepcid] 20 mg tablet 20 mg PO BEDTIME Qty: 90 3RF polyethylene glycol 3350 [Miralax] 17 gram/dose powder 17 g PO DAILY Qty: 510 2RF Referrals: Janes Espinal MD [Primary Care Provider] - 5 days (as needed) Interventions: ED Discharge Assessment Last Done: 11/06/22 14:25 Discharge Date/Time: 11/06/22 14:26
[2022-11-06 12:12] LABS: COVID-19 Test Positive (Negative); IDNOW Serial# BCCEAD1C
[2022-11-06 13:00] LABS: Eosinophils Percent Auto 0.2 % (0-4); Monocytes Absolute Auto 0.4 X10*3/uL (0.1-1.2); Monocytes Percent Auto 9.4 % (2-11); PLT CLUMP 1; SCAN SMEAR FLAG 1
[2022-11-06 13:02] LABS: Basophils Percent Auto 0.4 % (0-2); Hematocrit 40.1 % (37.0-47.0); Hemoglobin 12.2 g/dl (12.0-16.0); Imm Gran Abs Auto 0.02 X10*3/uL (0.00-0.03); Imm Gran Pct Auto 0.4 % (0.0-0.4); Lymphocytes Absolute Auto 1.3 X10*3/uL (1.2-4.9); Lymphocytes Percent Auto 27.9 % (20-40); MANUAL DIFF FLAG SCAN; Mean Corpuscular HGB Conc 30.4 g/dl (31.0-35.0); Mean Corpuscular Hemoglobin 27.2 pg (27.0-33.0); Mean Corpuscular Volume 89.5 fL (80.0-98.0); Neutrophils Absolute Auto 2.8 x10*3/uL (2.0-8.3); Neutrophils Percent Auto 61.7 % (45-73); Red Blood Count 4.48 X10*6/uL (4.20-5.50)
[2022-11-06 13:06] LABS: White Blood Count 4.5 X10*3/uL (4.8-10.8)
[2022-11-06 13:08] LABS: Anion Gap 12 (12-20); Blood Urea Nitrogen 10 mg/dL (9-16); Calcium 9.4 mg/dL (8.4-10.2); Carbon Dioxide 26 mmol/L (22-29); Chloride 108 mmol/L (96-108); Creatinine Clr Calc Pharmacy 56.3; Estimated Glomerular Filt Rate > 60; Glucose Random 95 mg/dL (60-115); Potassium 4.3 mmol/L (3.3-5.1); Sodium 142 mmol/L (135-145)
[2022-11-06 13:18] LABS: Platelet Count 122 X10*3/uL (160-400); SLIDE REVIEW VERIFIED
== END 2022-11-06 14:26 | disposition home or self-care (01) ==
PROVIDERS: Nurse Practitioner Family; Emergency Provider Emergency Medicine; PCP Internal Medicine
DX: U07.1 COVID-19 (principal); R05.9 Cough, unspecified; R50.9 Fever, unspecified; Z79.899 Other long term (current) drug therapy
CPT/HCPCS: 36415; 71046; 80048; 85025; 87635; 99282; 99284

== ENCOUNTER 2023-02-09 09:21 | Outpatient (REF) | payer MEDICARE, SELFPAY ==
--- NOTE | ~2023-02-09 | MM_ITS ---
EXAMINATION: BONE DENSITOMETRY CLINICAL INDICATION: Asymptomatic menopausal state. COMPARISON: Baseline BD dated 01/20/2021. TECHNIQUE: Using a [employer] DXA System (software version: 13.1) manufactured by [employer], dual-energy x-ray absorptiometry was performed of the lumbar spine and left hip. The images are of good technical quality. Summary results are attached. FINDINGS: LEFT FEMUR, NECK: Current: BMD 0.845 g/cm2, Z-score 0.2, T-score -1.4, osteopenia. Baseline: BMD 0.781 g/cm2. LEFT FEMUR, TOTAL: Current: BMD 1.015 g/cm2, Z-score 1.4, T-score 0.1, normal, 8.7% increase from baseline (<5% change is not significant). Baseline: BMD 0.934 g/cm2. AP SPINE L1-L2 (excluding L3 and L4): The data of L1-L4 has been changed to exclude the L3 and L4 vertebral bodies, because metallic artifact with degenerative change at these levels may cause overestimation of lumbar spine density. Current: BMD 1.087 g/cm2, Z-score 0.8, T-score -0.6, normal, 4.8% decrease from baseline (<5% change is not significant). Baseline: BMD 1.142 g/cm2. IDENTIFIED RISK FACTORS: Early menopause, secondary osteoporosis, hysterectomy, bilateral oophorectomy. HISTORY OF FRACTURE: None listed. MEDICATIONS: Vitamin D. MM/XR DEXA axial skeleton IMPRESSION: 1. DIAGNOSIS: Osteopenia based on the lowest T-score value of -1.4 in the femoral neck applying World Health Organization criteria. 2. 10-YEAR FRACTURE RISK PREDICTION, FRAX: Major osteoporotic fracture (clinical spine, forearm, hip or shoulder) 5.1%. Hip fracture 0.7%. 3. Treatment Recommendations: NOF guidelines recommend consideration for treatment in postmenopausal women and men age 50 and older presenting with the following: -A hip or vertebral (clinical or morphometric) fracture. -T-score less than or equal to -2.5 at the femoral neck or spine after appropriate evaluation to exclude secondary causes. -Low bone mass at the hip or spine and a 10-year fracture probability by FRAX of greater than or equal to 3% for hip fracture or greater than or equal to 20% for major osteoporotic fracture based on the [place] adapted WHO algorithm. 4. Other Recommendations: All treatment decisions require clinical judgment and consideration of individual patient factors, including patient preferences, comorbidities, previous drug use, risk factors not captured in the FRAX model (e.g. frailty, falls, vitamin D deficiency, increased bone turnover, interval significant decline in bone density) and possible under or overestimation of fracture risk by FRAX. Additional medical evaluation for secondary cause of low bone mineral density may be appropriate. FUTURE SCAN RECOMMENDATION: People with diagnosed cases of osteoporosis or at high risk for fracture should have regular bone mineral density tests. For patients eligible for Medicare, routine testing is allowed once every 2 years. The testing frequency can be increased to one year for patients who have rapidly progressing disease, those who are receiving or discontinuing medical therapy to restore bone mass, or have additional risk factors.
== END 2023-02-09 09:22 | disposition home or self-care (01) ==
LOC: HO.MAMMO 09:21
PROVIDERS: PCP Internal Medicine; Visit Provider Obstetrics & Gynecology
DX: Z13.820 Encounter for screening for osteoporosis (principal); Z78.0 Asymptomatic menopausal state
CPT/HCPCS: 77080

== ENCOUNTER → 2023-02-09 09:45 | Outpatient (BNV) | payer MEDICARE, SELFPAY | PROVIDERS: PCP Internal Medicine; Visit Provider Radiology Diagnostic Radiology | DX: Z78.0 Asymptomatic menopausal state (principal) | CPT/HCPCS: 77080 ==

== ENCOUNTER 2023-02-23 13:13 | Outpatient (AMB) | payer MEDICARE, SELFPAY ==
--- NOTE | 2023-02-23 12:18 | A.OFFVIS_ITS ---
Intake Intake Visit Reasons: OAB- 9m follow up Intake Note: Patient presents today for a follow-up on OAB: Meds- Oxybutynin Allergies to Antibiotic- No Known Allergies Blood Thinner- None PVR- 60 ml Nut Roaster Required: No Accompanied by: Self / Same As Patient Allergies oxycodone [Percocet] Allergy (Unknown, Verified 12/01/22 13:40) Unknown HPI HPI Comments History of Present Illness Details Shivani is a 72-year-old female who presents today to the office for a follow up on overactive bladder. 02/23/2023? She was last seen by me on 05/26/2022 for overactive bladder and lower urinary tract symptoms of urinary incontinence. She was recommended to continue the oxybutynin and to follow up in 9 months at that time. She states that she is noticing urine leakage with both urge and other activiity such as coughing and laughing. She ran out of the oxybutynin prescription and she has been off the medication for about 3 weeks. I discussed further evaluation of her bladder with urodynamics. She denies any dysuria. Three incontinence questionnaires administered. The patient has mixed urinary incontinence. Review of charts: Last visit: 05/26/2022: TeleMed visit: Shivani has been followed for overactive bladder and lower urinary tract symptoms of urinary incontinence.? She has been prescribed oxybutynin 10 mg.? The patient states the oxybutynin is working well.? She does not wear a pad.? She does have some constipation.? She is status post hysterectomy and follows with network technical analyst.? She denies any irritative voiding symptoms dysuria or recent UTI.? Will continue the oxybutynin.? Follow-up in 9 months for office visit. 02/23/2023?Evaluation today--UA--Leukocytes: 15 Denilson; blood: negative; bladder scan PVR: 60 mL. 02/23/2023?Plan: To schedule urodynamics. [facility] Medical History Asthma COVID-19 Fibromyalgia History of hepatitis C Obesity Sebaceous cyst Vaginal cysts Surgical History H/O right knee surgery History of carpal tunnel release History of hysterectomy History of lumbar surgery Family History Father Medical history unknown Mother Asthma Diabetes Hypertension Breast cancer Sister Breast cancer Social History Housing: Apartment Alcohol intake: never Patient Tobacco Use Status: Never used Tobacco e-Cigarette/Vaping Use: Never Used Second Hand Smoke Exposure: No Advance Directives Date on File: 11/19/21 service: No Current occupational status: retired Cognitive needs: No Hearing needs: No Vision needs: Yes Female Reproductive History Menstrual Age of Menarche: 13 Review of Systems Const All systems reviewed & are unremarkable except as noted in HPI and below Reports no additional complaints Eyes Reports no additional complaints ENT Denies neck pain Card Denies leg edema Resp Denies cough GI Reports constipation Reports no additional complaints Musc Reports no additional complaints and Denies neck pain Skin/Breast Denies rash and Denies unusual bruising Neuro Reports no additional complaints Psych Reports no additional complaints Endo Reports no additional complaints Siddharth/Lymph Reports no additional complaints Aller/Immun Reports no additional complaints Physical Exam Const General: cooperative, healthy appearing and no acute distress Orientation/consciousness: patient oriented x3 HEENT Head: Yes normal to inspection, Yes normocephalic and Yes atraumatic Eyes Conjunctivae: conjunctivae normal Neck Neck: Yes normal visual inspection and Yes trachea midline Chest Chest palpation & inspection: normal inspection of the chest Resp Effort & Inspection: normal respiratory effort Cardio Rate: regular rate GI Inspection: Yes normal to inspection Skin General skin exam: no rashes or lesions noted Neuro General: patient oriented x3 Psych Appearance: grossly normal Office Procedures Post Void Residual Post Residual Void Post Void Residual (PVR): 60 [id number] Void Residual by ultrasound Results AMB Urinalysis, Automated UA Leukoctes 15 Denilson/uL Last Edit by GASPER Luciano on 02/23/23 13:29 UA Nitrite Negative Last Edit by Kacie Vizcaino, A on 02/23/23 13:29 UA Urobilinogen 0 mg/dL Last Edit by Kacie Vizcaino, A on 02/23/23 13:29 UA Protein 0.2 mg/dL Last Edit by Kacie Vizcaino, A on 02/23/23 13:29 UA pH 6.0 Last Edit by Kacie Vizcaino, A on 02/23/23 13:29 UA Blood 0 Isaías/uL Last Edit by Kacie Vizcaino, A on 02/23/23 13:29 UA Specific [place] 1.030 Last Edit by Kacie Vizcaino, A on 02/23/23 13: 29 UA Ketone Negative Last Edit by Kacie Vizcaino, A on 02/23/23 13:29 UA Bilirubin 0 mg/dL Last Edit by Kacie Vizcaino, A on 02/23/23 13:29 UA Glucose 0 mg/dL Last Edit by Kacie Vizcaino A on 02/23/23 13:29 Results Reviewed Results Reviewed: Laboratory Last Values Urine pH (Auto) 6.0 02/23/23 13:20 Specific [place] (Auto) 1.030 02/23/23 13:20 Urine Protein (Auto) 0.2 mg/dL 02/23/23 13:20 Glucose (UA)(Auto) 0 mg/dL 02/23/23 13:20 Urine Ketones (Auto) Negative 02/23/23 13:20 Urine Blood (Auto) 0 Isaías/uL 02/23/23 13:20 Urine Nitrite (Auto) Negative 02/23/23 13:20 Urine Bilirubin (Auto) 0 mg/dL 02/23/23 13:20 Urine Urobilinogen (Auto) 0 mg/dL 02/23/23 13:20 Leukocyte Esterase (Auto) 15 Denilson/uL 02/23/23 13:20 Assessment & Plan Assessment & Plan (1) OAB (overactive bladder): Code(s): N32.81 - Overactive bladder Plan: To schedule urodynamics. (2) Urinary incontinence: Code(s): R32 - Unspecified urinary incontinence Orders: Orders AMB Urinalysis Automated 02/23/23 Z13.9 - Encounter for screening, unspecified AMB Post Void Residual by ultrasound 02/23/23 N39.8 - Other specified disorders of urinary system Patient Instructions: The patient had an opportunity to ask questions regarding treatment plan. All questions were answered. Imaging, Laboratory studies and physical exam results were discussed and reviewed in detail. No major barriers to understanding were identified. The patient expressed understanding and agreement with the above treatment plan.? ? ? The patient is aware they should contact our office by phone for worsening of their current condition or the appearance of new symptoms. Compliance is encouraged with any medications and followup testing that is ordered.? ? ? It is a privilege to be allowed the opportunity to participate in the urologic care of your patient. If you have any questions or concerns regarding treatment for the above conditions please do not hesitate to contact me. The office telephone contact is [phone].? ? ? This note is constructed in part using voice recognition software. While every effort has been made to ensure accuracy certified detention deputy errors may have been included.? ? ? Yours sincerely,? ? ? Parker Waters MD? Coding Level of Care Code Est Pt Level 4 (39175) Diagnoses OAB (overactive bladder) N32.81 Urinary incontinence R32 CPT Codes Post Residual Void - PVR CPT Code: 38659-Ozmb Void Residual by ultrasound ([id number])
== END 2023-02-23 13:47 | disposition home or self-care (01) ==
PROVIDERS: PCP Internal Medicine; Visit Provider Urology
DX: N32.81 Overactive bladder (principal); R32 Unspecified urinary incontinence
CPT/HCPCS: 99214

== ENCOUNTER → 2023-02-23 13:13 | Outpatient (BNVA) | payer MEDICARE, SELFPAY | PROVIDERS: Visit Provider Urology | DX: N32.81 Overactive bladder (principal); R32 Unspecified urinary incontinence | CPT/HCPCS: 51798; 81003; 99212 ==

== ENCOUNTER 2023-03-20 10:48 | Outpatient (AMB) | payer MEDICARE, SELFPAY ==
--- NOTE | 2023-03-20 10:52 | MHC.OFFVIS ---
Intake Vital Signs 03/20/23 10:59 Height 4 ft 10 in Weight 156 lb 8.451 oz BMI 32.7 BP 126/60 Blood Pressure Location Lt brachial Position Sitting Pulse 77 Pulse Source Pulse Oximeter Intake Visit Reasons: GERD, CIC Intake Note: Pt presents to the office today for GERD, CIC. Pt states she is doing better with the acid reflux and denies any N/V/D. Pt states Allergies oxycodone [Percocet] Allergy (Unknown, Verified 03/20/23 11:00) Unknown HPI GERD, CIC HPI Details LAST VISIT IBS (irritable bowel syndrome) Continue taking MiraLax. Continue low FODMAP diet and avoid dietary triggers. Hypovitaminosis D Her continue taking current dose of vitamin-D. Will check patient's vitamin-D level GERD (gastroesophageal reflux disease) Continue current dose of pantoprazole. Patient may use famotidine on as needed basis. Discussed with patient the importance of avoiding dietary triggers late night snacking. Staying upright for minimum 3 hours after meals discussed with patient. Chronic idiopathic constipation Continue taking MiraLax daily you and Senokot on as needed basis. Patient was encouraged to increase fluid intake and activity to promote better bowel motility. I will see her in 6 months, sooner if needed basis. Patient is agreeable to this plan and verbalizes understanding of instructions. She was given the opportunity to ask questions and all questions answered. ? Thank you for allowing me to participate in her care Plan Orders Orders Vitamin B12 and Folate Today R19.7 Vitamin D 25-OH (D2 and D3) Today E55.9 Medications Refilled pantoprazole take one tablet half an hour before breakfast 40 mg PO DAILY 90 tabs 2RF K21.9 Discontinued ibuprofen (IBU) Discontinued Reason: Doctor's Order 600 mg PO Q6H PRN 90 tabs 0RF pain TODAY'S VISIT Patient is here today for follow-up. Patient reports that she has been taking pantoprazole every morning and reports that her symptoms of acid reflux are suppressed. Patient denies dyspepsia, dysphagia or odynophagia. Occasionally patient will have acid reflux at night time. Patient reports that she does not eat late at night. Patient states that she sleeps on couple pillows due to her asthma. Patient states that she is moving her bowels well without any issues. Taking magnesium every day as well as MiraLax. Patient denies melena, hematochezia, unintentional weight loss or ribbon like stools. Patient reports to have good appetite denies abdominal pain, nausea or vomiting. [facility] Medical History Asthma COVID-19 Fibromyalgia History of hepatitis C Obesity Sebaceous cyst Vaginal cysts Surgical History H/O right knee surgery History of carpal tunnel release History of hysterectomy History of lumbar surgery Family History Father Medical history unknown Mother Asthma Diabetes Hypertension Breast cancer Sister Breast cancer Social History Housing: Apartment Alcohol intake: never Patient Tobacco Use Status: Never used Tobacco e-Cigarette/Vaping Use: Never Used Second Hand Smoke Exposure: No Advance Directives Date on File: 11/19/21 service: No Current occupational status: retired Cognitive needs: No Hearing needs: No Vision needs: Yes Female Reproductive History Menstrual Age of Menarche: 13 Review of Systems Const Denies weight gain and Denies weight loss ENT Reports no additional complaints, Denies dysphagia and Denies odynophagia Card Reports no additional complaints Resp Reports no additional complaints GI Denies abdominal pain, Denies belching, Denies melena, Denies bloating, Denies change in bowel habits, Denies dysphagia, Denies excessive flatus, Denies dyspepsia, Reports heartburn (Occasional), Denies diarrhea, Denies loose stools, Denies nausea, Denies odynophagia and Denies vomiting Reports no additional complaints Musc Reports no additional complaints Neuro Reports no additional complaints Psych Reports no additional complaints Endo Reports no additional complaints Physical Exam Const General: healthy appearing, no acute distress and well developed Orientation/consciousness: patient oriented x3 HEENT Head: Yes normal to inspection, Yes normocephalic and Yes atraumatic Face and sinus: Yes normal facial exam Mouth: Normal oral and palatal mucosa present Throat: Yes posterior oropharynx normal, Yes tonsils normal and Yes uvula midline Eyes General: appearance normal, both eyes and all related structures Neck Neck: Yes normal visual inspection, Yes full ROM and Yes trachea midline Thyroid: Thyroid normal Resp Effort & Inspection: normal respiratory effort, able to speak in complete sentences, no tracheal deviation and symmetric chest movement Auscultation: clear to auscultation bilaterally Cardio Rate: regular rate Heart sounds: S1 normal heart sound present and S2 normal heart sound present GI Inspection: Yes normal to inspection, No distended and Yes obesity Palpation (GI): Soft to palpation, not firm, nontender and No hepatosplenomegaly present Auscultation: normal bowel sounds General: Yes no CVA tenderness Back/Spine/Pelvis Back: no CVA tenderness Skin General skin exam: elasticity normal, turgor normal and dry skin Neuro General: patient oriented x3 Psych Appearance: grossly normal Mental Status: mental status grossly normal Speech and movement: Normal speech and movement present Judgement: Good judgement present (Psych) Assessment & Plan Assessment & Plan (1) IBS (irritable bowel syndrome): Code(s): K58.9 - Irritable bowel syndrome without diarrhea Qualifiers: Irritable bowel syndrome type: without diarrhea Qualified Code(s): K58.9 - Irritable bowel syndrome without diarrhea Plan: Continue avoiding dietary triggers (2) GERD (gastroesophageal reflux disease): Code(s): K21.9 - Gastro-esophageal reflux disease without esophagitis Qualifiers: Esophagitis presence: without esophagitis Qualified Code(s): K21.9 - Gastro-esophageal reflux disease without esophagitis Plan: Continue pantoprazole every morning half an hour before breakfast. Discussed with patient avoiding dietary triggers only and snacking. Staying upright for minimum 3 hours after meals discussed with patient. Patient can take famotidine at bedtime on as needed basis. (3) Chronic idiopathic constipation: Code(s): K59.04 - Chronic idiopathic constipation Plan: Continue magnesium and MiraLax. Patient was also encouraged to increase fluid intake and activity to promote better bowel motility. I will see her in 6 months, sooner on as needed basis. Patient is agreeable to this plan and verbalizes understanding of instructions. She was given the opportunity to ask questions and all questions answered. Thank you for allowing me to participate in her care Medications: New famotidine (Pepcid) 20 mg PO BEDTIME 30 tabs 3RF K21.9 - Gastro-esophageal reflux disease without esophagitis magnesium oxide 400 mg PO DAILY 120 tabs 2RF Coding Level of Care Code Est Pt Level 3 (02911) Diagnoses Irritable bowel syndrome without diarrhea K58.9 Irritable bowel syndrome type: without diarrhea Gastroesophageal reflux disease without esophagitis K21.9 Esophagitis presence: without esophagitis Chronic idiopathic constipation K59.04 Time Spent (min) 25 Comment 15 minutes spent with patient and additional 10 minutes spent reviewing her records
[2023-03-20 10:59] VITALS: BP 126/60; PULSE 77; BMI 32.7
== END 2023-03-20 11:22 | disposition home or self-care (01) ==
PROVIDERS: PCP Internal Medicine; Visit Provider Nurse Practitioner Family
DX: K58.9 Irritable bowel syndrome, unspecified (principal); K21.9 Gastro-esophageal reflux disease without esophagitis; K59.04 Chronic idiopathic constipation
CPT/HCPCS: 99213

== ENCOUNTER → 2023-03-20 10:48 | Outpatient (BNVA) | payer MEDICARE, SELFPAY | PROVIDERS: PCP Internal Medicine; Visit Provider Nurse Practitioner Family | DX: K58.9 Irritable bowel syndrome, unspecified (principal); K21.9 Gastro-esophageal reflux disease without esophagitis; K59.04 Chronic idiopathic constipation; Z79.899 Other long term (current) drug therapy | CPT/HCPCS: 99212 ==

== ENCOUNTER 2023-03-30 08:47 | Outpatient (AMB) | payer MEDICARE, SELFPAY ==
--- NOTE | 2023-03-30 08:48 | MHC.OFFVIS ---
Intake Vital Signs 03/30/23 08:49 Height 4 ft 10 in Weight 156 lb 8.451 oz BMI 32.7 BP 120/72 Intake Visit Reasons: DEXA follow up Clinical Care Leader Required: Yes Clinical Care Leader Language: Aerosol Supervisor Name: Pastora JACKMAN Information Interpreted: non-clinical & clinical Accompanied by: Self / Same As Patient Allergies oxycodone [Percocet] Allergy (Unknown, Verified 03/30/23 08:50) Unknown Post menopausal: Yes HPI HPI Comments History of Present Illness Details The patient is presenting for follow up regarding DEXA scan results. T score @ spine and femoral Neck respectively were=-0.6 /-1.4 and 10 year FRAX risk = 5.1/0.7% for severe osteoporosis and fracture. Bone mineral density increased by 8.7% and decreased 4.6% compared to previous BMD at the spine and femur level expected PFSH Medical History Sebaceous cyst Vaginal cysts History of hepatitis C Obesity COVID-19 Fibromyalgia Asthma Surgical History History of hysterectomy History of lumbar surgery History of carpal tunnel release H/O right knee surgery Family History Father Medical history unknown Mother Asthma Diabetes Hypertension Breast cancer Sister Breast cancer Social History Housing: Apartment Alcohol intake: never Patient Tobacco Use Status: Never used Tobacco e-Cigarette/Vaping Use: Never Used Second Hand Smoke Exposure: No Advance Directives Date on File: 11/19/21 service: No Current occupational status: retired Cognitive needs: No Hearing needs: No Vision needs: Yes Female Reproductive History Menstrual Age of Menarche: 13 Review of Systems Const All systems reviewed & are unremarkable except as noted in HPI and below Reports as per HPI and Reports no additional complaints GI Reports no additional complaints Reports no additional complaints Assessment & Plan Assessment & Plan (1) Osteopenia: Code(s): M85.80 - Other specified disorders of bone density and structure, unspecified site Plan: Discussed with the patient the DEXA results and FRAX risk. FRAX risk and T score showed no evidence of osteoporosis. Discussed with the patient all the options for osteoporosis prevention including lifestyle modifications including Ca+D supplements 1200 mg po qd/800 MIU, Weight bearing exercises and proteine supplements. The patient verbalized understanding and agreed plan will repeat DEXA in 2 years. Coding Level of Care Code Est Pt Level 3 (91059) Diagnoses Osteopenia M85.80
[2023-03-30 08:49] VITALS: BP 120/72; BMI 32.7
== END 2023-03-30 10:37 | disposition home or self-care (01) ==
PROVIDERS: PCP Internal Medicine; Visit Provider Obstetrics & Gynecology
DX: M85.80 Other specified disorders of bone density and structure, unspecified site (principal)
CPT/HCPCS: 99213

== ENCOUNTER → 2023-03-30 08:47 | Outpatient (BNVA) | payer MEDICARE, SELFPAY | PROVIDERS: PCP Internal Medicine; Visit Provider Obstetrics & Gynecology | DX: M85.80 Other specified disorders of bone density and structure, unspecified site (principal) | CPT/HCPCS: 99212 ==

== ENCOUNTER 2023-04-13 13:43 | Outpatient (AMB) | payer MEDICARE, SELFPAY ==
--- NOTE | 2023-04-13 14:00 | MHC.OFFVIS ---
Intake Intake Visit Reasons: Urodynamics Intake Note: Patient presents today for a URODYNAMIC Procedure: Meds: Oxybutynin Allergies to Antibiotic: No Known Allergies Blood Thinner: None Residential Subcontractor Required: No Accompanied by: Self / Same As Patient Allergies oxycodone [Percocet] Allergy (Unknown, Verified 04/13/23 14:01) Unknown Medication List - Last Reconciled 04/13/23 by Parker Waters MD cholecalciferol (vitamin D3) 100 mcg (2 x 50 mcg (2,000 unit)) PO DAILY famotidine (Pepcid) 20 mg PO BEDTIME magnesium oxide 400 mg PO DAILY pantoprazole 40 mg PO DAILY polyethylene glycol 3350 (Miralax) 17 grams PO DAILY sumatriptan succinate 25 mg PO Q2-4H PRN tizanidine 4 mg PO Q8H PRN vibegron (Gemtesa) 75 mg PO DAILY HPI HPI Comments History of Present Illness Details Shivani is a 72-year-old female who presents today to the office for a follow-up. 04/13/23-- She is followed today for urodynamics. She was last seen by me on 02/23/23 for overactive bladder. Urodynamics was discussed to scheduled during that time. Discussed medication trial for overactive bladder to include anti-cholinergic medications, Boto therapy of neuromodulation. Examination was notable for vaginal atrophy. Discussed the use of vaginal estrogen therapy. Patient has a family history of breast cancer in her mother and aunt and told to avoid vaginal estrogen. CMG parameters detailed below. Interpretation: Complex uroflow low volume obtained. Complex CMG-During the filling phase there was normal sensation, sensory urgency was noted and patient complained of bladder pain at max capacity of 256 mL. Bladder capacity was less than average. The patient voided 298 mL. Leakage was not observed during cough or stress. EMG- Appropriate changes in the waveforms were noted through out the study. There was a decrease in the EMG activity during the voiding c/w normal function of the pelvic floor. Findings consistent with Sensory urgency. Discussed Treatment options to include antimuscarinics, botox bladder injection, neuromodulation with Interstim therapy. Plan: Gemtesa 75 mg daily was ordered. Follow-up in 6-8 weeks. [facility] Medical History Sebaceous cyst Vaginal cysts History of hepatitis C Obesity COVID-19 Fibromyalgia Asthma Surgical History History of hysterectomy History of lumbar surgery History of carpal tunnel release H/O right knee surgery Family History Father Medical history unknown Mother Asthma Diabetes Hypertension Breast cancer Sister Breast cancer Social History Housing: Apartment Alcohol intake: never Patient Tobacco Use Status: Never used Tobacco e-Cigarette/Vaping Use: Never Used Second Hand Smoke Exposure: No Advance Directives Date on File: 11/19/21 service: No Current occupational status: retired Cognitive needs: No Hearing needs: No Vision needs: Yes Female Reproductive History Menstrual Age of Menarche: 13 Review of Systems Const All systems reviewed & are unremarkable except as noted in HPI and below Reports no additional complaints Eyes Reports no additional complaints ENT Denies neck pain Card Denies leg edema Resp Denies cough GI Reports constipation Reports no additional complaints Musc Reports no additional complaints and Denies neck pain Skin/Breast Denies rash and Denies unusual bruising Neuro Reports no additional complaints Psych Reports no additional complaints Endo Reports no additional complaints Siddharth/Lymph Reports no additional complaints Aller/Immun Reports no additional complaints Physical Exam Const General: cooperative, healthy appearing and no acute distress Orientation/consciousness: patient oriented x3 HEENT Head: Yes normal to inspection, Yes normocephalic and Yes atraumatic Eyes Conjunctivae: conjunctivae normal Neck Neck: Yes normal visual inspection and Yes trachea midline Chest Chest palpation & inspection: normal inspection of the chest Resp Effort & Inspection: normal respiratory effort Cardio Rate: regular rate GI Inspection: Yes normal to inspection General: No no CVA tenderness External Female Exam: normal external appearance Speculum Exam - Vagina: vagina atrophic Back/Spine/Pelvis Back: No no CVA tenderness Skin General skin exam: no rashes or lesions noted Neuro General: patient oriented x3 Extrem General: No edema Psych Appearance: grossly normal Office Procedures Urodynamic Studies Consent Discussed risk and benefit or proposed procedure with the patient. Information consent for procedure given to the patient. Discussed technical aspects, risks, benefits and alternatives in full. Addressed all of the patient's questions and concerns regarding the procedure. The patient demonstrated knowledge and understanding. They wish to proceed with this procedure. Preparation The patient was prepped in the usual manner. A automatic centrifugal station operator was present and in the room. Genitalia was prepped with betadine solution in a sterile manner. Prep: The patient was prepped in the usual manner. A automatic centrifugal station operator was present and in the room. Genitalia was prepped with betadine solution in a sterile manner. 73584-Nxpzmugafudwpm w/ PET SUPPLIES SALESPERSON 67639-Nricvtq-Eqhyuzlbavul First 44754-Frng/Urinary Muscle Study 69296-Dkkdd-Gqgmgpoci Pressure Test Procedure code (CPT) selection complete Office Meds nitrofurantoin monohydrate/macrocrystals 100 mg capsule Performing Provider: Parker Waters MD [facility] Documented (not given) by: Parker Waters MD on 04/13/23 17:46 Dose Route Admin Location Dispensed Lot Number Expiration Date [facility] Executor Of Estate 100 mg PO cap Results AMB Urinalysis, Automated UA Leukoctes 70 Denilson/uL Last Edit by Kacie Vizcaino [facility] on 04/13/23 14:11 1+ Kacie Vizcaino 04/13/23 14:11 UA Nitrite Negative Last Edit by Kacie Vizcaino Jamie on 04/13/23 14:11 UA Urobilinogen 0.2 mg/dL Last Edit by Kacie Vizcaino [facility] on 04/13/23 14:11 UA Protein 0 mg/dL Last Edit by Kacie Vizcaino [facility] on 04/13/23 14:11 UA pH 6.0 Last Edit by Kacie Vizcaino [facility] on 04/13/23 14:11 UA Blood 0 Isaías/uL Last Edit by GASPER Luciano on 04/13/23 14:11 UA Specific L[place] 1.015 Last Edit by Kacie Vizcaino [facility] on 04/13/23 14:11 UA Ketone Negative Last Edit by GASPER Luciano on 04/13/23 14:11 UA Bilirubin 0 mg/dL Last Edit by Kacie Vizcaino [facility] on 04/13/23 14:11 UA Glucose 0 mg/dL Last Edit by GASPER Luciano on 04/13/23 14:11 Results Reviewed Results Reviewed: Laboratory Last Values Urine pH (Auto) 6.0 04/13/23 14:07 Specific L[place] (Auto) 1.015 04/13/23 14:07 Urine Protein (Auto) 0 mg/dL 04/13/23 14:07 Glucose (UA)(Auto) 0 mg/dL 04/13/23 14:07 Urine Ketones (Auto) Negative 04/13/23 14:07 Urine Blood (Auto) 0 Isaías/uL 04/13/23 14:07 Urine Nitrite (Auto) Negative 04/13/23 14:07 Urine Bilirubin (Auto) 0 mg/dL 04/13/23 14:07 Urine Urobilinogen (Auto) 0.2 mg/dL 04/13/23 14:07 Leukocyte Esterase (Auto) 70 Denilson/uL 04/13/23 14:07 Assessment & Plan Assessment & Plan (1) OAB (overactive bladder): Code(s): N32.81 - Overactive bladder (2) Frequency-urgency syndrome: Code(s): N31.8 - Other neuromuscular dysfunction of bladder Plan Gemtesa 75 mg daily was ordered. Follow-up in 6-8 weeks. Orders: Orders AMB Urinalysis Automated Today Z13.9 - Encounter for screening, unspecified AMB Urodynamics Studies Today N32.81 - Overactive bladder Medications: New vibegron (Gemtesa) 75 mg PO DAILY 90 tabs 2RF nitrofurantoin monohyd/m-cryst 100 mg 100 mg PO ONCE 1 cap 0RF N32.81 - Overactive bladder Coding Level of Care Code Est Pt Level 3 (37280) Diagnoses OAB (overactive bladder) N32.81 Frequency-urgency syndrome N31.8 CPT Codes Urodynamic Studies - CPT: 65731-Cidexznvvrwrqe w/ PET SUPPLIES SALESPERSON ([id number]) Urodynamic Studies - CPT: 13217-Zmvtkrv-Xzecnzxjdhxp First ([id number]) Urodynamic Studies - CPT: 44904-Ujrw/Urinary Muscle Study ([id number]) Urodynamic Studies - CPT: 10081-Vgdfw-Xdshfqper Pressure Test ([id number]) Comment Modifier 51 Complex Uroflow Complex uroflow performed by: Cabello-Charli,Corlis Maximum urinary flow rate (mL/second): 11 Voiding time (seconds): 125 Voided volume (mL): 56 Residual urine (mL): 10 Comments: Low volume Cystometrogram Void Pressure Cystometrogram void pressure performed by: Parker Waters Vaginal/rectal catheter type: rectal First sensation at (mL): 18 First detrussor pressure (cm H2O): 0.9 Strong desire to void occured at (mL): 236 Strong desire detrussor pressure (cm H2O): 2.8 Maximum fill (mL): 256 Maximum fill detrussor pressure (cm H2O): 3.6 Voided with max detrussor pressure of (cm H2O): 26 Maximum flow rate (mL/second): 9.9
== END 2023-04-13 15:07 | disposition home or self-care (01) ==
PROVIDERS: PCP Internal Medicine; Visit Provider Urology
DX: N32.81 Overactive bladder (principal); Z13.9 Encounter for screening, unspecified
CPT/HCPCS: 51728; 51741; 51784; 51797

== ENCOUNTER → 2023-04-13 13:43 | Outpatient (BNVA) | payer MEDICARE, SELFPAY | PROVIDERS: PCP Internal Medicine; Visit Provider Urology | DX: N32.81 Overactive bladder (principal); N31.8 Other neuromuscular dysfunction of bladder | CPT/HCPCS: 51728; 51741; 51784; 51797; 81003 ==

== ENCOUNTER 2023-05-08 11:35 | Outpatient (AMB) | payer MEDICARE, SELFPAY ==
[2023-05-08 11:38] VITALS: BP 118/62; PULSE 90; O2SAT 98; BMI 32.6
--- NOTE | 2023-05-08 11:38 | A.OFFPC_ITS ---
Vital Signs 05/08/23 11:38 Height 4 ft 10 in Weight 156 lb BMI 32.6 BP 118/62 Blood Pressure Location Lt brachial Position Sitting Pulse 90 Pulse Source Pulse Oximeter Pulse Oximetry (%) 98 Oxygen Delivery Method Room Air Intake Visit Reasons: COPD Allergies oxycodone [Percocet] Allergy (Unknown, Verified 05/08/23 11:38) Unknown Medication List - Last Reconciled 05/08/23 by Janes Espinal MD azithromycin take 500 mg today (day 1), then 250 mg for 4 days (days 2-5) PO cholecalciferol (vitamin D3) 100 mcg (2 x 50 mcg (2,000 unit)) PO DAILY famotidine (Pepcid) 20 mg PO BEDTIME magnesium oxide 400 mg PO DAILY methylprednisolone (Medrol (Dominic)) PO PER PKG DIR mirabegron ER (Myrbetriq) 50 mg PO DAILY pantoprazole 40 mg PO DAILY polyethylene glycol 3350 (Miralax) 17 grams PO DAILY sumatriptan succinate 25 mg PO Q2-4H PRN tizanidine 4 mg PO Q8H PRN Tobacco use date assessed: 08/04/22 Fall risk assessment: No Falls in past year Dental Screening Dental Screen Date: 05/08/23 Did you have a dental visit in the last 12 months?: Yes Did you have a dental problem in the last 6 months where you did not have access to dental care?: No Was dental information given to patient?: Patient has dentist HPI COPD HPI Details asthma exacerbation for 3 days PFSH Medical History Sebaceous cyst Vaginal cysts History of hepatitis C Obesity COVID-19 Fibromyalgia Asthma Surgical History History of hysterectomy History of lumbar surgery History of carpal tunnel release H/O right knee surgery Family History Father Medical history unknown Mother Asthma Diabetes Hypertension Breast cancer Sister Breast cancer Social History Housing: Apartment Alcohol intake: never Patient Tobacco Use Status: Never used Tobacco e-Cigarette/Vaping Use: Never Used Second Hand Smoke Exposure: No Advance Directives Date on File: 11/19/21 service: No Current occupational status: retired Cognitive needs: No Hearing needs: No Vision needs: Yes Female Reproductive History Menstrual Age of Menarche: 13 Questionnaire PHQ-9 Over the last 2 weeks, how often have you been bothered by any of the following problems? 1. Little interest or pleasure in doing things: several days 2. Feeling down, depressed, or hopeless: not at all 3. Trouble falling or staying asleep, or sleeping too much: several days 4. Feeling tired or having little energy: more than half the days 5. Poor appetite or overeating: more than half the days 6. Feeling bad about yourself - or that you are a failure or have let yourself or your family down: not at all 7. Trouble concentrating on things, such as reading the newspaper or watching television: not at all 8. Moving or speaking so slowly that other people could have noticed. Or the opposite - being so fidgety or restless that you have been moving around a lot more than usual: several days 9. Thoughts that you would be better off or of hurting yourself in some way: not at all Total score: 7 Depression Screening Interpretation: Negative Depression Screening Done: Yes 01812 - PHQ-9 Billing: Yes Source: Developed by Drs. Cosme Yang, Cornelio Stanford and colleagues, with an educational ronna from [employer] Thrive Questionnaire Date Thrive assessed: 12/01/22 AUDIT C Alcohol Use Questionnaire (AUDIT-C) 1. How often do you have a drink containing alcohol?: Never Total Score: 0 Score Reviewed/Action Taken: Yes RABIA-7 AMB Questionnaire RABIA-7 Date RABIA - 7 assessed: 12/01/22 Source: Developed by Drs. Cosme Yang, Cornelio Stanford and colleagues, with an educational ronna from [employer] Review of Systems Const Denies chills, Denies headache(s) and Denies weight loss ENT Denies headache(s) Card Denies chest pain, Denies syncope, Denies irregular heart rhythm and Denies dyspnea Resp Denies dyspnea GI Denies abdominal pain, Denies change in stool character, Denies nausea and Denies vomiting Musc Denies deformity and Denies joint swelling Neuro Denies syncope and Denies headache(s) Physical exam (Primary Care) Vital Signs: Last Vital Signs Pulse 90 05/08/23 11:38 BP 118/62 05/08/23 11:38 Pulse Ox 98 05/08/23 11:38 Oxygen Delivery Method Room Air 05/08/23 11:38 BMI result Body Mass Index 32.6 Tobacco/Smoking Status: Tobacco use Status Tobacco use date assessed 08/04/22 05/08/23 11:42 Patient Tobacco Use Status Never used Tobacco 05/08/23 11:42 e-Cigarette/Vaping Use Never Used 05/08/23 11:42 PHQ-9: PHQ-9 Score PHQ-9: Total score 7 05/08/23 12:00 Depression Screening Interpretation: Negative Thrive Assessment: Date of Thrive Assessment Date Thrive assessed 12/01/22 05/08/23 11:42 Const General: cooperative, comfortable, no acute distress and alert Neck Neck: Yes no lymphadenopathy Thyroid: Thyroid normal Resp Effort & Inspection: normal respiratory effort, audible wheezes and Actively coughing Percussion: percussion normal Cardio Jugular venous distension: no JVD Palpation: normal PMI Rate: regular rate Rhythm: regular rhythm Heart sounds: S1 normal heart sound present and S2 normal heart sound present GI Inspection: Yes normal to inspection Palpation (GI): No hepatosplenomegaly present Skin General skin exam: no rashes or lesions noted Extrem General: Yes no clubbing, cyanosis or edema Assessment and Plan Assessment & Plan (1) Asthma: Code(s): J45.909 - Unspecified asthma, uncomplicated Plan: take rx Medications: New azithromycin take 500 mg today (day 1), then 250 mg for 4 days (days 2-5) PO 6 tabs 0RF methylprednisolone (Medrol (Dominic)) PO PER PKG DIR 21 ea 0RF Coding Level of Care Code Est Pt Level 3 (71757) Diagnoses Asthma J45.909
== END 2023-05-08 12:39 | disposition home or self-care (01) ==
PROVIDERS: PCP Internal Medicine; Visit Provider Internal Medicine
DX: J45.909 Unspecified asthma, uncomplicated (principal)
CPT/HCPCS: 99213

== ENCOUNTER 2023-05-25 09:21 | Outpatient (AMB) | payer MEDICARE, SELFPAY ==
[2023-05-25 09:54] VITALS: BP 130/70; BMI 32.6
--- NOTE | 2023-05-25 09:54 | A.OFFVIS_ITS ---
Intake Vital Signs 05/25/23 09:54 Height 4 ft 10 in Weight 156 lb BMI 32.6 BP 130/70 Intake Visit Reasons: annual Intake Note: Vaginal dryness Conference Services Manager Required: Yes Conference Services Manager Language: Paper Handler Name: Pastora JACKMAN Information Interpreted: non-clinical & clinical Senior Application Security Consultant: Senior Application Security Consultant Present (Pastora JACKMAN) Accompanied by: Self / Same As Patient Allergies oxycodone [Percocet] Allergy (Unknown, Verified 05/25/23 10:02) Rash Post menopausal: Yes HPI HPI Comments History of Present Illness Details Presenting for annual exam. No complaints. Last Pap/HPV was many years ago, the patient is above 65 years of age with no history of abnormal Pap smears last 25 years and is status post hysterectomy for myomatous uterus Last Mammogram was BI-RADS 2 in 09/01 at [facility] Last Colonoscopy was done in 02/28, the recommendation was to repeat in 10 years Last DEXA scan was in the low risk category in 03/01 [facility] Medical History Sebaceous cyst Vaginal cysts History of hepatitis C Obesity COVID-19 Fibromyalgia Asthma Surgical History History of hysterectomy History of lumbar surgery History of carpal tunnel release H/O right knee surgery Family History Father Medical history unknown Mother Asthma Diabetes Hypertension Breast cancer Sister Breast cancer Social History Housing: Apartment Alcohol intake: never Patient Tobacco Use Status: Never used Tobacco e-Cigarette/Vaping Use: Never Used Second Hand Smoke Exposure: No Advance Directives Date on File: 11/19/21 service: No Current occupational status: retired Cognitive needs: No Hearing needs: No Vision needs: Yes Female Reproductive History Menstrual Age of Menarche: 13 Menopause type: surgical Total pregnancies: 2 Full term: 2 Number of Living Children: 2 Date of Mammogram: 09/01/22 Review of Systems Const All systems reviewed & are unremarkable except as noted in HPI and below Card Reports as per HPI Resp Reports as per HPI GI Reports as per HPI and Reports no additional complaints Reports as per HPI Physical Exam Const General: cooperative, healthy appearing and comfortable Chest Chest palpation & inspection: normal inspection of the chest and normal palpation of entire chest wall Breast/axilla inspection: normal inspection of the breasts and normal inspection of the axillae Breast/axilla palpation: normal palpation of the breasts, normal palpation of the axillae and no axillary lymphadenopathy Resp Effort & Inspection: normal respiratory effort Auscultation: clear to auscultation bilaterally Percussion: percussion normal Cardio Palpation: normal PMI Rate: regular rate Rhythm: regular rhythm Heart sounds: no murmurs and no rubs Peripheral pulses: Peripheral pulses 2+ throughout GI Inspection: Yes normal to inspection Palpation (GI): Soft to palpation, nontender, no guarding, not rigid and No hepatosplenomegaly present Percussion: Yes normal to percussion Auscultation: normal bowel sounds Rectal Exam - Female: deferred External Female Exam: No lesion Speculum Exam - Vagina: normal appearance of the vagina, normal vaginal discharge and not erythematous Speculum Exam - Cervix: Cervix absent Bimanual exam- vagina & uterus: uterus absent Bimanual Exam- Adnexa, other: Other (No pelvic masses) Assessment & Plan Assessment & Plan (1) Well woman exam: Code(s): Z01.419 - Encounter for gynecological examination (general) (routine) without abnormal findings Plan: Co testing not indicated since the patient 's age is above 65 with no history of abnormal Pap smears last 25 years and is status post hysterectomy for myomatous uterus. Counseled the patient about the recommended dietary allowance of 1200 mg of Calcium & 800 IU of vitamin D. Instructions given to the patient to schedule her next screen Mammogram in 09/02. The patient was instructed to perform monthly self-breast exams and to schedule an annual exam in a year; All questions answered and the patient verbalized understanding. Medications: Discontinued azithromycin Discontinued Reason: Patient Completed Course take 500 mg today (day 1), then 250 mg for 4 days (days 2-5) PO 6 tabs 0RF Coding Level of Care Code Est Pt Prev Care >65y(79494) Diagnoses Well woman exam Z01.419
== END 2023-05-25 10:30 | disposition home or self-care (01) ==
PROVIDERS: PCP Internal Medicine; Visit Provider Obstetrics & Gynecology
DX: Z01.419 Encounter for gynecological examination (general) (routine) without abnormal findings (principal)
CPT/HCPCS: 99397

== ENCOUNTER → 2023-05-25 09:21 | Outpatient (BNVA) | payer MEDICARE, SELFPAY | PROVIDERS: PCP Internal Medicine; Visit Provider Obstetrics & Gynecology | DX: Z01.419 Encounter for gynecological examination (general) (routine) without abnormal findings (principal); N32.81 Overactive bladder; N31.8 Other neuromuscular dysfunction of bladder | CPT/HCPCS: 51798; 99212 ==

== ENCOUNTER 2023-05-25 11:35 | Outpatient (AMB) | payer MEDICARE, SELFPAY ==
--- NOTE | 2023-05-25 11:41 | A.OFFVIS_ITS ---
Intake Intake Visit Reasons: 6w follow up Intake Note: Patient presents today for a 6 week follow up after URODYNAMIC Procedure: Meds: Oxybutynin Allergies to Antibiotic: No Known Allergies Blood Thinner: None Unable to void, PVR: 0 mL Outside Production Inspector Required: Yes Outside Production Inspector Language: Acute Care Nursing Assistant Name: GASPER Luciano/ELIA RUVALCABA Information Interpreted: non-clinical & clinical Accompanied by: Self / Same As Patient Allergies oxycodone [Percocet] Allergy (Unknown, Verified 05/25/23 11:42) Rash HPI HPI Comments History of Present Illness Details Shivani is a 72-year-old female who presents today to the office for a follow-up. 05/25/2023-- She was last seen by me on 04/13/2023 for urodynamics procedure. Findings consistent with Sensory urgency. Discussed Treatment options to include antimuscarinics, botox bladder injection, neuromodulation with Interstim therapy. Patient was prescribed gemtesa but states that she did not fill the Gemtesa 90 tablets as the cost was 105 dollars as she cannot afford. She states that she called to the office for different medication and Myrbetriq 50 mg was sent to the Pharmacy. Patient states that she only had minimal improvement on the Myrbetriq during the day. She states that she is going frequently in the evening and getting up frequently at night to urinate. She is willing to try the Gemtesa and wants only a 30 day supply sent to the pharm. Review of charts: Last visit: 04/13/23-- urodynamics- Findings consistent with Sensory urgency. EMG- Appropriate changes in the waveforms were noted through out the study. There was a decrease in the EMG activity during the voiding c/w normal function of the pelvic floor. Discussed Treatment options to include antimuscarinics, botox bladder injection, neuromodulation with Interstim therapy. Discussed the use of vaginal estrogen therapy. Patient has a family history of breast cancer in her mother and aunt and was told to avoid vaginal estrogen by her OVEN HEATER HELPER. 05/25/2023: Plan: Trial of Gemtesa 30 tabletes. Consideration of bladder botox injection if there is no improvement with Gemtesa. [facility] Medical History Sebaceous cyst Vaginal cysts History of hepatitis C Obesity COVID-19 Fibromyalgia Asthma Surgical History History of hysterectomy History of lumbar surgery History of carpal tunnel release H/O right knee surgery Family History Father Medical history unknown Mother Asthma Diabetes Hypertension Breast cancer Sister Breast cancer Social History Housing: Apartment Alcohol intake: never Patient Tobacco Use Status: Never used Tobacco e-Cigarette/Vaping Use: Never Used Second Hand Smoke Exposure: No Advance Directives Date on File: 11/19/21 service: No Current occupational status: retired Cognitive needs: No Hearing needs: No Vision needs: Yes Female Reproductive History Menstrual Age of Menarche: 13 Review of Systems Const All systems reviewed & are unremarkable except as noted in HPI and below Card Reports as per HPI Resp Reports as per HPI GI Reports as per HPI and Reports no additional complaints Reports as per HPI Office Procedures Post Void Residual Post Residual Void Post Void Residual (PVR): 0 38708-Yctn Void Residual by ultrasound Assessment & Plan Assessment & Plan (1) OAB (overactive bladder): Code(s): N32.81 - Overactive bladder (2) Frequency-urgency syndrome: Code(s): N31.8 - Other neuromuscular dysfunction of bladder Plan Trial of Gemtesa 30 tabletes. Consideration of bladder botox injection if there is no improvement with Gemtesa. Orders: Orders AMB Post Void Residual by ultrasound 05/25/23 N39.8 - Other specified disorders of urinary system Medications: New vibegron (Gemtesa) 75 mg PO DAILY 30 tabs 1RF Coding Level of Care Code Est Pt Level 4 (29591) Diagnoses OAB (overactive bladder) N32.81 Frequency-urgency syndrome N31.8 CPT Codes Post Residual Void - PVR CPT Code: 85321-Xncq Void Residual by ultrasound ([id number])
== END 2023-05-25 12:20 | disposition home or self-care (01) ==
PROVIDERS: PCP Internal Medicine; Visit Provider Urology
DX: N32.81 Overactive bladder (principal); N31.8 Other neuromuscular dysfunction of bladder
CPT/HCPCS: 99214

== ENCOUNTER 2023-09-19 08:48 | Outpatient (AMB) | payer MEDICARE, SELFPAY ==
--- NOTE | 2023-09-19 08:49 | A.OFFVIS_ITS ---
Intake Vital Signs 09/19/23 08:50 Height 4 ft 10 in Weight 155 lb 3.287 oz BMI 32.4 BP 148/78 H Blood Pressure Location Lt brachial Position Sitting Pulse 92 Pulse Source Pulse Oximeter Intake Visit Reasons: 6 month follow up Intake Note: Pt presents to the office today for a 6 month follow up. She states her constipation issues has gotten better. She has been eating a lot of foods with fiber which she believes has helped a lot. She states she doesn't have any issues with constipation anymore. She also denies any other GI concerns at this time. Allergies oxycodone [Percocet] Allergy (Unknown, Verified 09/19/23 08:50) Rash HPI 6 month follow up HPI Details LAST VISIT IBS (irritable bowel syndrome) Continue avoiding dietary triggers GERD (gastroesophageal reflux disease) Continue pantoprazole every morning half an hour before breakfast. Discussed with patient avoiding dietary triggers only and snacking. Staying upright for minimum 3 hours after meals discussed with patient. Patient can take famotidine at bedtime on as needed basis. Chronic idiopathic constipation Continue magnesium and MiraLax. Patient was also encouraged to increase fluid intake and activity to promote better bowel motility. I will see her in 6 months, sooner on as needed basis. Patient is agreeable to this plan and verbalizes understanding of instructions. She was given the opportunity to ask questions and all questions answered. ? Thank you for allowing me to participate in her care Plan Medications New famotidine (Pepcid) 20 mg PO BEDTIME 30 tabs 3RF K21.9 magnesium oxide 400 mg PO DAILY 120 tabs 2RF TODAY'S VISIT Patient is here today for follow-up. Patient reports that since last time I have seen her she has been doing better. Patient reports that she changed her diet, eating more fruits and vegetables. Avoiding fried, spicy and fast foods. Patient states that she cooks at home for the most part. Avoiding lactose, pasta, bread. Patient reports that she has been moving her bowels without any issues. Patient is taking magnesium at bedtime and moves her bowels well. Denies melena, hematochezia, unintentional weight loss or ribbon like stools. Patient is taking famotidine in at bedtime and pantoprazole in the morning. Patient denies dyspepsia, dysphagia or odynophagia. [facility] Medical History Sebaceous cyst Vaginal cysts History of hepatitis C Obesity COVID-19 Fibromyalgia Asthma Surgical History History of hysterectomy History of lumbar surgery History of carpal tunnel release H/O right knee surgery Family History Father Medical history unknown Mother Asthma Diabetes Hypertension Breast cancer Sister Breast cancer Social History Housing: Apartment Alcohol intake: never Patient Tobacco Use Status: Never used Tobacco e-Cigarette/Vaping Use: Never Used Second Hand Smoke Exposure: No Advance Directives Date on File: 11/19/21 service: No Current occupational status: retired Cognitive needs: No Hearing needs: No Vision needs: Yes Female Reproductive History Menstrual Age of Menarche: 13 Review of Systems Const Denies weight gain and Denies weight loss ENT Reports no additional complaints, Denies dysphagia and Denies odynophagia Card Reports no additional complaints Resp Reports no additional complaints GI Denies abdominal pain, Denies belching, Denies melena, Denies bloating, Denies change in bowel habits, Denies dysphagia, Denies excessive flatus, Denies dyspepsia, Denies heartburn, Denies diarrhea, Denies loose stools, Denies nausea, Denies odynophagia and Denies vomiting Musc Reports no additional complaints Neuro Reports no additional complaints Psych Reports no additional complaints Endo Reports no additional complaints Physical Exam Vital Signs: Last Vital Signs Pulse 92 09/19/23 08:50 BP 148/78 H 09/19/23 08:50 BMI result Body Mass Index 32.4 Const General: no acute distress Nutritional Appearance: obese Orientation/consciousness: patient oriented x3 Resp Effort & Inspection: normal respiratory effort, able to speak in complete sentences, no tracheal deviation and symmetric chest movement Auscultation: clear to auscultation bilaterally Cardio Rate: regular rate GI Inspection: Yes normal to inspection, No distended and Yes obesity Palpation (GI): Soft to palpation, not firm, nontender and No hepatosplenomegaly present Auscultation: normal bowel sounds General: Yes no CVA tenderness Back/Spine/Pelvis Back: no CVA tenderness Skin General skin exam: elasticity normal, turgor normal and dry skin Neuro General: patient oriented x3 Psych Appearance: grossly normal Mental Status: mental status grossly normal Assessment & Plan Assessment & Plan (1) IBS (irritable bowel syndrome): Code(s): K58.9 - Irritable bowel syndrome without diarrhea Qualifiers: Irritable bowel syndrome type: without diarrhea Qualified Code(s): K58.9 - Irritable bowel syndrome without diarrhea (2) GERD (gastroesophageal reflux disease): Code(s): K21.9 - Gastro-esophageal reflux disease without esophagitis Qualifiers: Esophagitis presence: esophagitis presence not specified Qualified Code(s): K21.9 - Gastro-esophageal reflux disease without esophagitis (3) Chronic idiopathic constipation: Code(s): K59.04 - Chronic idiopathic constipation Plan Continue pantoprazole and famotidine. Patient will continue avoiding dietary triggers. Staying upright for minimum 3 hours after meals discussed with patient. Continue taking magnesium. Increase fluid intake and activity to promote better bowel motility. Patient will return in 6 months, sooner on as needed basis. Patient is agreeable to this plan and verbalizes understanding of instructions. She was given the opportunity to ask questions and all questions answered. Thank you for allowing me to participate in her care Coding Level of Care Code Est Pt Level 3 (60179) Diagnoses Irritable bowel syndrome without diarrhea K58.9 Irritable bowel syndrome type: without diarrhea Gastroesophageal reflux disease, unspecified whether esophagitis present K21.9 Esophagitis presence: esophagitis presence not specified Chronic idiopathic constipation K59.04 Time Spent (min) 25 Comment 15 minutes spent with patient and additional 10 minutes spent reviewing her records
[2023-09-19 08:50] VITALS: BP 148/78; PULSE 92; BMI 32.4
== END 2023-09-19 09:44 | disposition home or self-care (01) ==
PROVIDERS: PCP Internal Medicine; Visit Provider Nurse Practitioner Family
DX: K58.9 Irritable bowel syndrome, unspecified (principal); K21.9 Gastro-esophageal reflux disease without esophagitis; K59.04 Chronic idiopathic constipation
CPT/HCPCS: 99213

== ENCOUNTER → 2023-09-19 08:48 | Outpatient (BNVA) | payer MEDICARE, SELFPAY | PROVIDERS: PCP Internal Medicine; Visit Provider Nurse Practitioner Family | DX: K58.9 Irritable bowel syndrome, unspecified (principal); K21.9 Gastro-esophageal reflux disease without esophagitis; K59.04 Chronic idiopathic constipation | CPT/HCPCS: 99212 ==

== ENCOUNTER 2023-10-30 10:23 | Emergency (ER) | payer MEDICARE, SELFPAY ==
--- NOTE | ~2023-10-30 | XR_ITS ---
EXAMINATION: XR KNEE, LEFT CLINICAL INFORMATION: Patient states pain in left knee for one month. COMPARISON: None available. TECHNIQUE: Two views of the left knee. FINDINGS: Moderate joint effusion. Tiny tricompartmental osteophytes. Minimal narrowing of the medial compartment. Bony exostosis along the anterior inferior aspect of the patella on the lateral view incompletely characterized. Tiny radiodensity in the soft tissues superior to the posterior aspects of the patella. Multiple heterogeneous calcifications are present along the posterior aspect of the knee joint of indeterminate significance and age. XR/XR knee LT 2V IMPRESSION: 1. Moderate joint effusion. 2. Mild degenerative changes. 3. Multiple heterogeneous calcifications are present along the posterior aspect of the knee joint of indeterminate significance and age. 4. Bony exostosis along the anterior inferior aspect of the patella on the lateral view incompletely characterized. This study was presented today for October 30, 2023 for interpretation. Stat results provided at this time as requested by referring provider.
[2023-10-30 10:36] VITALS: BP 118/62; PULSE 91; RESP 16; TEMP 36.1; O2SAT 98; BMI 32.4
--- NOTE | 2023-10-30 14:31 | ED_ITS ---
HPI - General Adult General Chief complaint: Extremity Injury, Lower Stated complaint: L knee pain, hard time walking Time Seen by Provider: 10/30/23 14:02 Source: patient Mode of arrival: ambulatory Limitations: no limitations History of Present Illness HPI narrative: 72-year-old female with past medical history of vitamin-D deficiency, right knee surgery, history of hep C, fibromyalgia, and asthma presents to the ED for left knee swelling and pain for the past month. Patient states possibly a month ago while trying to break her fall she twisted her knee and ever since has had pain And swelling. patient states now unable to bear weight. Patient denies any chest pain or shortness of breath. patient states no fever or chills. Patient denies any calf pain Related Data Home Medications ?Medication ?Instructions ?Recorded ?Confirmed gabapentin 300 mg capsule mg PO 09/19/23 meloxicam 15 mg tablet 15 mg PO DAILY 09/19/23 Previous Rx's ?Medication ?Instructions ?Recorded cholecalciferol (vitamin D3) 50 100 mcg (2 x 50 mcg (2,000 unit)) 09/13/22 mcg (2,000 unit) capsule PO DAILY #180 caps magnesium oxide 400 mg PO DAILY #120 tabs 03/20/23 methylprednisolone 4 mg tablets in See Rx Instructions PO PER PKG DIR 05/08/23 a dose pack (Medrol (Dominic)) #21 ea vibegron 75 mg tablet (Gemtesa) 75 mg PO DAILY #30 tabs 05/25/23 famotidine 20 mg tablet 20 mg PO BEDTIME #90 tabs 06/15/23 pantoprazole 40 mg tablet,delayed 40 mg PO DAILY #90 tabs 09/13/23 release prednisone 20 mg tablet 40 mg (2 x 20 mg) PO DAILY 5 days 10/30/23 #10 tabs tramadol 50 mg tablet 50 mg PO Q6H PRN pain 3 days #12 10/30/23 tabs Allergies Allergy/AdvReac Type Severity Reaction Status Date / Time oxycodone [Percocet] Allergy Unknown Rash Verified 10/30/23 10:41 Review of Systems 2 Review of Systems: left knee pain swelling for 1 month Yes all other systems are reviewed and are negative PMFSH Past Medical History Medical History Sebaceous cyst Vaginal cysts History of hepatitis C Obesity COVID-19 Fibromyalgia Asthma Surgical History History of hysterectomy History of lumbar surgery History of carpal tunnel release H/O right knee surgery Family History Family History Father Medical history unknown Mother Asthma Diabetes Hypertension Breast cancer Sister Breast cancer Social History Social History Housing: Apartment Alcohol intake: never Patient Tobacco Use Status: Never used Tobacco e-Cigarette/Vaping Use: Never Used Second Hand Smoke Exposure: No Advance Directives: Yes Advance Directives on File: Yes Advance Directives Date on File: 11/19/21 service: No Current occupational status: retired Cognitive needs: No Hearing needs: No Vision needs: Yes Physical Exam ED Vital Signs: Vital Signs - 24 hr 10/30/23 10:36 Temperature 97.0 F Pulse Rate 91 Respiratory Rate 16 Blood Pressure 118/62 Pulse Oximetry 98 Oxygen Delivery Method Room Air BMI result Body Mass Index 32.4 Const General: cooperative, healthy appearing, comfortable, no acute distress, well developed, alert, awake and Physically active Orientation/consciousness: oriented to person, oriented to place, oriented to time and patient oriented x3 HENMT Head: Yes normal to inspection, Yes No palpable skull fracture present, Yes normocephalic, Yes atraumatic and No abrasion Eyes General: appearance normal, both eyes and all related structures Neck Neck: Yes normal visual inspection, Yes full ROM, Yes no lymphadenopathy, Yes no meningeal signs, Yes trachea midline, Yes supple, No anterior neck swelling and No tender Chest Chest palpation & inspection: normal inspection of the chest and normal palpation of entire chest wall Resp Effort & Inspection: normal respiratory effort and able to speak in complete sentences Auscultation: clear to auscultation bilaterally Cardio Jugular venous distension: no JVD Heart sounds: S1 normal heart sound present and S2 normal heart sound present GI Inspection: Yes normal to inspection Palpation (GI): Soft to palpation, not firm, nontender, no guarding and not rigid General: Yes no CVA tenderness Back/Spine/Pelvis Back: no CVA tenderness and No back tenderness Skin General skin exam: no rashes or lesions noted, elasticity normal and turgor normal Neuro General: oriented to person, oriented to place, oriented to time, patient oriented x3, tone normal, moves all extremities, Normal light touch and pain sensation, no meningeal signs, no focal motor deficits, CN's II-XI intact bilaterally, normal sensation to monofilament and deep tendon reflexes 2+ bilaterally Extrem Knee images: 2 1. positive for swelling and tenderness on palpation. Negative for warmth, redness, or stiffness. Patient has complete range of motion of knee. Popliteal pulse intact. Rest of extremity normal. Motor/neuro/ vascular exam intact 2. positive for swelling and tenderness on palpation. Negative for warmth, redness, or stiffness. Patient has complete range of motion of knee. Popliteal pulse intact. Rest of extremity normal. Motor/neuro/ vascular exam intact Psych Appearance: grossly normal, well kempt and not disheveled Medical Decision Making Medical Decision Making MDM Narrative: 9-year-old female presents to the ED for left knee pain for 1 month. X-ray shows moderate joint effusion and arthritis. Presently not suspecting septic joint. No need for arthrocentesis. No need for therapeutic arthrocentesis. Patient has complete range of motion of knee and negative for any stiffness redness or warmth. Negative any upper calf swelling. Patient and daughter agreeable to plan for Camlio wrap crutches and steroids and pain medication. Also due to patient stating she twisted her knee a month ago before started having symptoms probably she might have a meniscus ligament injury and may need MRI. They were informed of this. Patient and family explained worrisome signs and informed to return to the ED immediately if she has them. patient states taking tramadol in the past without any side effects or allergic reaction. Patient did not want crutches. patient walked around the ED with a cane. Differential Diagnosis Differential Diagnoses: The differential diagnosis associated with the presentation includes ( septic joint, arthritis, possible meniscus ligament injury,) Admission/Observation Consideration of admission/observation: Escalation of care including admission/observation considered Independent Interpretation I performed an independent interpretation of an: Plain X-Ray Radiology Impression Discussion of test interpretation with radiology: I have reviewed the radiologist's reading. Independent Historian Clinical information obtained from an independent historian. History obtained from or confirmed by: Other ( patient and daughter) External Record Review External record reviewed: Other ( previous imaging) Prescription Management I considered prescription management with: Pain Medication and Other ( steroid) Discharge Plan Discharge Clinical Impression: Effusion, left knee, Arthritis of knee Patient Disposition: Home, Self-Care Instructions: Osteoarthritis (DC), Swollen Knee Joint (ED) Additional Instructions: Recommend follow-up with primary care provider and your orthopedic surgeon. Call for earlier appointment. Return to the ED immediately for swelling increased, stiffness, redness, warmth, inability to move knee, fever, chills, swelling of calf, chest pain, shortness of breath, or any other concerning symptoms. Prescriptions: New prednisone 20 mg tablet 40 mg PO DAILY 5 Days Qty: 10 0RF tramadol 50 mg tablet 50 mg PO Q6H PRN (Reason: pain) 3 Days Qty: 12 0RF No Action cholecalciferol (vitamin D3) 50 mcg (2,000 unit) capsule 100 mcg PO DAILY Qty: 180 3RF famotidine 20 mg tablet 20 mg PO BEDTIME Qty: 90 3RF pantoprazole 40 mg tablet,delayed release (DR/EC) 40 mg PO DAILY Qty: 90 2RF Rx Instructions: take one tablet half an hour before breakfast methylprednisolone [Medrol (Dominic)] 4 mg tablets,dose pack See Rx Instructions PO PER PKG DIR Qty: 21 0RF Rx Instructions: PO PER PKG DIR magnesium oxide 400 mg magnesium tablet 400 mg PO DAILY Qty: 120 2RF gabapentin 300 mg capsule PO meloxicam 15 mg tablet 15 mg PO DAILY nitrofurantoin monohyd/m-cryst 100 mg capsule 100 mg PO ONCE Qty: 1 0RF Gemtesa 75 mg tablet 75 mg PO DAILY Qty: 30 1RF Referrals: [facility] [place] Orthopedic Surgeons [Provider Group] ( left knee moderate effusion. Arthritis. May need MRI) Interventions: ED Discharge Assessment Last Done: 10/30/23 16:05 Discharge Date/Time: 10/30/23 16:06 Print Language: Ukrainian
[2023-10-30 16:05] VITALS: BP 127/72; PULSE 68; RESP 16; TEMP 36.6; O2SAT 99
== END 2023-10-30 16:06 | disposition home or self-care (01) ==
PROVIDERS: Emergency Provider Emergency Medicine; PCP Internal Medicine
DX: M25.462 Effusion, left knee (principal); M17.12 Unilateral primary osteoarthritis, left knee
CPT/HCPCS: 73560; 99282; 99283

== ENCOUNTER 2023-11-02 10:02 | Outpatient (AMB) | payer MEDICARE, SELFPAY ==
--- NOTE | 2023-11-02 10:12 | A.OFFVIS_ITS ---
Intake Visit Reasons: follow up Intake Note: Patient presents today for a follow up: Meds: Gemtesa Allergies to Antibiotic: No Known Allergies Blood Thinner: None PVR: 0 mL Dry Roaster Required: Yes Dry Roaster Language: Copyright Manager Name: Navidonnyluis GASPER Vizcaino/ELIA RUVALCABA Information Interpreted: non-clinical & clinical Accompanied by: Daughter Allergies oxycodone [Percocet] Allergy (Unknown, Verified 11/02/23 10:12) Rash HPI Comments Details: 11/02/23--Shivani is a 72-year-old female who presents today to the office for a follow-up. She is on gemtesa 75 mg daily for overactive bladder symptoms. She had urodynamics which were consistent with sensory urgency. She states the medication is not controlling her bladder leakage episodes. She has leakage with urgency. She also has leakage with coughing. I have explained that anticholinergics or use mainly to target the bladder spasms. The patient has failed several p.o. anticholinergics. I have discussed bladder Botox injection. The patient is here with her daughter and is interested in proceeding with this treatment plan. She understands that this will not affect her leakage associated coughing as it relates to weak pelvic floor muscles. Review of chart: 05/25/2023-- She was last seen by me on 04/13/2023 for urodynamics procedure. Findings consistent with Sensory urgency. Discussed Treatment options to include antimuscarinics, botox bladder injection, neuromodulation with Interstim therapy. Patient was prescribed gemtesa but states that she did not fill the Gemtesa 90 tablets as the cost was 105 dollars as she cannot afford. She states that she called to the office for different medication and Myrbetriq 50 mg was sent to the Pharmacy. Patient states that she only had minimal improvement on the Myrbetriq during the day. She states that she is going frequently in the evening and getting up frequently at night to urinate. She is willing to try the Gemtesa and wants only a 30 day supply sent to the pharm. 04/13/23-- urodynamics- Findings consistent with Sensory urgency. EMG- Appropriate changes in the waveforms were noted through out the study. There was a decrease in the EMG activity during the voiding c/w normal function of the pelvic floor. Discussed Treatment options to include antimuscarinics, botox bladder injection, neuromodulation with Interstim therapy. Discussed the use of vaginal estrogen therapy. Patient has a family history of breast cancer in her mother and aunt and was told to avoid vaginal estrogen by her SCRATCH BRUSHER. 11/02/23: Plan: Schedule bladder Botox injection 100 units. [facility] Medical History Sebaceous cyst Vaginal cysts History of hepatitis C Obesity COVID-19 Fibromyalgia Asthma Surgical History History of hysterectomy History of lumbar surgery History of carpal tunnel release H/O right knee surgery Family History Father Medical history unknown Mother Asthma Diabetes Hypertension Breast cancer Sister Breast cancer Social History Housing: Apartment Alcohol intake: never Patient Tobacco Use Status: Never used Tobacco e-Cigarette/Vaping Use: Never Used Second Hand Smoke Exposure: No Advance Directives Date on File: 11/19/21 service: No Current occupational status: retired Cognitive needs: No Hearing needs: No Vision needs: Yes Female Reproductive History Menstrual Age of Menarche: 13 Review of Systems Const All systems reviewed & are unremarkable except as noted in HPI and below Reports no additional complaints Eyes Reports no additional complaints ENT Reports no additional complaints Card Reports no additional complaints Resp Reports no additional complaints GI Reports no additional complaints Reports as per HPI Musc Reports no additional complaints Skin/Breast Reports system reviewed and no additional complaints, except as documented Neuro Reports no additional complaints Psych Reports no additional complaints Endo Reports no additional complaints Siddharth/Lymph Reports no additional complaints Aller/Immun Reports no additional complaints Office Procedures Post Void Residual Post Residual Void Post Void Residual (PVR): 0 30122-Rrbo Void Residual by ultrasound Results AMB Urinalysis, Automated UA Leukoctes 500 Denilson/uL Last Edit by Kacie Vizcaino A on 11/02/23 10:23 3+ Kacie Vizcaino 11/02/23 10:23 UA Nitrite Negative Last Edit by Kacie Vizcaino A on 11/02/23 10:23 UA Urobilinogen 0.2 mg/dL Last Edit by Kacie Vizcaino [facility] on 11/02/23 10:2 3 UA Protein 30 mg/dL Last Edit by Kacie Vizcaino, A on 11/02/23 10:23 1+ Kacie Vizcaino 11/02/23 10:23 UA pH 5.5 Last Edit by Kacie Vizcaino [facility] on 11/02/23 10:23 UA Blood 0 Isaías/uL Last Edit by Kacie Vizcaino [facility] on 11/02/23 10:23 UA Specific [place] 1.025 Last Edit by Kacie Vizcaino [facility] on 11/02/23 10: 23 UA Ketone Positive Last Edit by Kacie Vizcaino [facility] on 11/02/23 10:23 5 mg/dL Kacie Vizcaino 11/02/23 10:23 UA Bilirubin 1 mg/dL Last Edit by Kacie Vizcaino [facility] on 11/02/23 10:23 1+ Kacie Vizcaino 11/02/23 10:23 UA Glucose 0 mg/dL Last Edit by Kacie Vizcaino [facility] on 11/02/23 10:23 Results Reviewed Results Reviewed: Laboratory Last Values Urine pH (Auto) 5.5 11/02/23 10:13 Specific [place] (Auto) 1.025 11/02/23 10:13 Urine Protein (Auto) 30 mg/dL 11/02/23 10:13 Glucose (UA)(Auto) 0 mg/dL 11/02/23 10:13 Urine Ketones (Auto) Positive 11/02/23 10:13 Urine Blood (Auto) 0 Isaías/uL 11/02/23 10:13 Urine Nitrite (Auto) Negative 11/02/23 10:13 Urine Bilirubin (Auto) 1 mg/dL 11/02/23 10:13 Urine Urobilinogen (Auto) 0.2 mg/dL 11/02/23 10:13 Leukocyte Esterase (Auto) 500 Denilson/uL 11/02/23 10:13 Assessment & Plan Assessment & Plan (1) OAB (overactive bladder): Code(s): N32.81 - Overactive bladder Category: Medical (2) Frequency-urgency syndrome: Code(s): N31.8 - Other neuromuscular dysfunction of bladder Category: Medical Plan Schedule bladder Botox injection 100 units Orders: Orders AMB Urinalysis Automated Today Z13.9 - Encounter for screening, unspecified AMB Post Void Residual by ultrasound Today N39.8 - Other specified disorders of urinary system AMB Urinalysis Automated Today Z13.9 - Encounter for screening, unspecified Patient Instructions: The patient had an opportunity to ask questions regarding treatment plan. The patient expressed understanding and agreement with the above treatment plan. The patient is aware they should contact our office by phone for worsening of their current condition or the appearance of new symptoms. Compliance is encouraged with any medications and followup testing that is ordered. It is a privilege to be allowed the opportunity to participate in the urologic care of your patient. If you have any questions or concerns regarding treatment for the above conditions please do not hesitate to contact me. The office telephone contact is [phone]. This note is constructed in part using voice recognition software. While every effort has been made to ensure accuracy ruby on rails software developer errors may have been included. Yours sincerely, Parker Waters MD Coding Level of Care Code Est Pt Level 4 (83422) Diagnoses OAB (overactive bladder) N32.81 Frequency-urgency syndrome N31.8 CPT Codes Post Residual Void - PVR CPT Code: 34470-Fxjd Void Residual by ultrasound ([id number])
== END 2023-11-02 10:38 | disposition home or self-care (01) ==
PROVIDERS: PCP Internal Medicine; Visit Provider Urology
DX: N32.81 Overactive bladder (principal); N31.8 Other neuromuscular dysfunction of bladder; Z13.9 Encounter for screening, unspecified
CPT/HCPCS: 99214

== ENCOUNTER → 2023-11-02 10:02 | Outpatient (BNVA) | payer MEDICARE, SELFPAY | PROVIDERS: PCP Internal Medicine; Visit Provider Urology | DX: N32.81 Overactive bladder (principal); N31.8 Other neuromuscular dysfunction of bladder; N39.8 Other specified disorders of urinary system; Z79.899 Other long term (current) drug therapy | CPT/HCPCS: 51798; 81003; 99212 ==

== ENCOUNTER 2023-11-21 09:41 | Day surgery (SDC) | payer MEDICARE, SELFPAY ==
--- NOTE | 2023-11-20 10:07 | HO.ANESPROP2 ---
Documented by User: Lara Amador NP 11/20/23 10:10 HPI - Anesthesia Eval Consult details Narrative: 72yo F for Cystoscopy Botox Injection PMFSH Active Problems Active Problems: All Active Problems Frequency-urgency syndrome (Acute) Osteopenia (Acute) Vitamin D deficiency disease (Acute) Encounter for annual wellness exam in Medicare patient (Acute) COVID-19 (Acute) OAB (overactive bladder) (Acute) Cerumen debris on tympanic membrane (Acute) Tinnitus of both ears (Acute) Adult general medical exam (Acute) Post-menopausal (Acute) Urinary incontinence (Acute) Headache (Acute) Abdominal pain (Acute) Well woman exam (Acute) Atrophic vaginitis (Acute) Menopause (Acute) Lumbar pain (Acute) History of hepatitis C (Acute) Obesity (Acute) Fibromyalgia (Acute) Asthma (Acute) Past Medical History Medical History Sebaceous cyst Vaginal cysts History of hepatitis C Obesity COVID-19 Fibromyalgia Asthma Family History Family History Father Medical history unknown Mother Asthma Diabetes Hypertension Breast cancer Sister Breast cancer Family history of problems with anesthesia: No Surgical History Surgical History History of hysterectomy History of lumbar surgery History of carpal tunnel release H/O right knee surgery History of Problems with Anesthesia: No Social History Social History Housing: Apartment Alcohol intake: never Patient Tobacco Use Status: Never used Tobacco e-Cigarette/Vaping Use: Never Used Second Hand Smoke Exposure: No Use of substances other than those prescribed or required for medical reasons: No Are you DNR?: No Advance Directives: No Advance Directives Information Provided: Yes Advance Directives Date on File: 11/19/21 service: No Current occupational status: retired Cognitive needs: No Hearing needs: No Vision needs: Yes Meds Allergies Allergy/AdvReac Type Severity Reaction Status Date / Time oxycodone [Percocet] Allergy Unknown Rash Verified 11/21/23 10:37 Home Medications ?Medication ?Instructions ?Recorded ?Confirmed ?Last Taken ?Type gabapentin 300 mg capsule mg PO 09/19/23 Unknown History meloxicam 15 mg tablet 15 mg PO DAILY 09/19/23 11/21/23 Unknown History albuterol sulfate 90 mcg inhalation Q4-6H PRN 11/21/23 11/21/23 Unknown History Shortness Of Breath Or Wheezing Assessment and Plan Assessment Anesthesia Assessment: Chart Reviewed Final Anesthetic Review Family History of Problems with Anesthesia: No History of Problems with Anesthesia: No Documented by User: David Puentes MD 11/21/23 12:33 PMFSH Past Medical History Medical History Sebaceous cyst Vaginal cysts History of hepatitis C Obesity COVID-19 Fibromyalgia Asthma Family History Family History Father Medical history unknown Mother Asthma Diabetes Hypertension Breast cancer Sister Breast cancer Surgical History Surgical History History of hysterectomy History of lumbar surgery History of carpal tunnel release H/O right knee surgery Social History Social History Housing: Apartment Alcohol intake: never Patient Tobacco Use Status: Never used Tobacco e-Cigarette/Vaping Use: Never Used Second Hand Smoke Exposure: No Use of substances other than those prescribed or required for medical reasons: No Are you DNR?: No Advance Directives: No Advance Directives Information Provided: Yes Advance Directives Date on File: 11/19/21 service: No Current occupational status: retired Cognitive needs: No Hearing needs: No Vision needs: Yes Meds Allergies Allergy/AdvReac Type Severity Reaction Status Date / Time oxycodone [Percocet] Allergy Unknown Rash Verified 11/21/23 10:37 Home Medications ?Medication ?Instructions ?Recorded ?Confirmed ?Last Taken ?Type gabapentin 300 mg capsule mg PO 09/19/23 Unknown History meloxicam 15 mg tablet 15 mg PO DAILY 09/19/23 11/21/23 Unknown History albuterol sulfate 90 mcg inhalation Q4-6H PRN 11/21/23 11/21/23 Unknown History Shortness Of Breath Or Wheezing Exam Airway Mallampati Class: II TM Dist: <=3cm Neck ROM: Full Loose/Missing/Broken Teeth: No Heart: ok Lungs: ok Assessment and Plan Assessment Anesthesia Assessment: Anesthesia Plan Discussed Final Anesthetic Review NPO: Yes ASA Class: II Final Preanesthetic Review: No Changes in Pt Med Stat, Meds/Allgs Chart Reviewed, Consent Obtained/Reviewed and Anes Risks/Benef Reviewed Patient Risk: Intermediate Procedure Risk: Low Anesthetic Plan Anesthetic Plan: GA and Agree w/ Assess. and Plan Disposition: Standard PACU
[2023-11-21 11:46] VITALS: BMI 31.3
[2023-11-21 11:50] VITALS: BP 137/60; PULSE 86; RESP 16; TEMP 36.6; O2SAT 99
--- NOTE | 2023-11-21 12:15 | MHC.SHP ---
Pre-Procedural Eval Section A - 24 Hr Update-Section A only Date of Service: 11/21/23 The patient is an INPATIENT: No The patient has been examined within 24 hours of the surgical procedure. The History & Physical has been completed within 30 days and I have reviewed it.: Yes Section B - Complete if H&P > 30 days Chief Complaint: Overactive bladder Allergies: Allergies Allergy/AdvReac Type Severity Reaction Status Date / Time oxycodone [Percocet] Allergy Unknown Rash Verified 11/21/23 10:37 Plan Diagnosis/Plan: Unchanged I have reviewed the history and physical and performed a pertinent physical examination on my patient. No changes have occurred unless specified. Cystoscopy Bladder Botox injection. Time Spent With Patient Time: Total time managing care of this patient today ____ minutes.
[2023-11-21 13:09] VITALS: BP 113/65; PULSE 80; RESP 18; TEMP 36.1; O2SAT 97
--- NOTE | 2023-11-21 13:13 | W.PM.OPN ---
Operative Note Operative Note Date of Service: 11/21/23 Narrative: PREOP DIAGNOSIS: Overactive bladder (OAB) POSTOP DIAGNOSIS: OAB PROCEDURE: CYSTOSCOPY, BLADDER BOTOX INJECTION 100 UNITS SURGEON: Parker Waters MD ANESTHESIA: General Indications: Failed oral anticholingeric management. Details of procedure: The patient was brought into the operating room placed on the OR table in supine position. Levaquin 500 mg IV. General anesthesia was administered. The patient was repositioned into lithotomy position, prepped and draped in the usual sterile fashion. Time-out was done per protocol. A 22 fr cystoscope was placed transurethrally into the bladder. Urine was sent for culture. The right and left ureteral orifices were visualized. There were moderate trabeculations noted. There were no suspicious bladder lesions seen. The Botox 100 units was mixed with 10 cc of normal saline and injected transurethrally 1/2 cc to 1 cc per injection into the posterior bladder wall. The cystoscope was removed. 2% lidocaine urojet was passed transurethrally into the bladder. The patient was brought out of anesthesia and taken to recovery in stable condition. Complications: None Drains: none
[2023-11-21 13:14] VITALS: BP 109/66; PULSE 76; RESP 16; O2SAT 97
[2023-11-21 13:19] VITALS: BP 110/64; PULSE 74; RESP 16; O2SAT 96
[2023-11-21 13:24] VITALS: BP 118/68; PULSE 72; RESP 16; O2SAT 96
[2023-11-21 13:39] VITALS: BP 122/72; PULSE 81; RESP 18; TEMP 36.2; O2SAT 97
[2023-11-21] MEDS: Phenazopyridine HCL 200 MG TABLET PO (13:56)
== END 2023-11-21 14:14 | disposition home or self-care (01) ==
PROVIDERS: PCP Internal Medicine; Visit Provider Urology
PROC: 3E0K8GC Introduction of Other Therapeutic Substance into Genitourinary Tract, Via Natural or Artificial Opening Endoscopic (ICD-10-PCS; CPT 52287; principal; 2023-11-21 11:40)
DX: N32.81 Overactive bladder (principal); N32.89 Other specified disorders of bladder; N31.8 Other neuromuscular dysfunction of bladder; R39.15 Urgency of urination; N89.8 Other specified noninflammatory disorders of vagina; M79.7 Fibromyalgia; J45.909 Unspecified asthma, uncomplicated; Z80.3 Family history of malignant neoplasm of breast; Z88.5 Allergy status to narcotic agent
CPT/HCPCS: 52287; 87086; J0585; J1956; J2704; J3010

== ENCOUNTER → 2023-11-21 09:41 | Outpatient (BNV) | payer MEDICARE, SELFPAY | PROVIDERS: PCP Internal Medicine; Visit Provider Urology | DX: N32.81 Overactive bladder (principal) | CPT/HCPCS: 52287 ==

== ENCOUNTER → 2023-11-29 09:22 | Outpatient (BNVA) | payer MEDICARE, SELFPAY | PROVIDERS: PCP Internal Medicine; Visit Provider Urology | DX: N32.81 Overactive bladder (principal); R32 Unspecified urinary incontinence | CPT/HCPCS: 51798 ==

== ENCOUNTER 2023-12-26 12:18 | Outpatient (REF) | payer MEDICARE, SELFPAY ==
[2023-12-26 14:06] LABS: Thyroid Stimulating Hormone 1.25 uIU/mL (0.32-4.0); Vitamin B12 358 pg/mL (200-900)
== END 2023-12-26 12:19 | disposition home or self-care (01) ==
LOC: HO.LAB 12:18
PROVIDERS: PCP Internal Medicine; Visit Provider Internal Medicine
DX: R41.3 Other amnesia (principal)
CPT/HCPCS: 36415; 82607; 84443

== ENCOUNTER 2024-01-22 10:56 | Outpatient (REF) | payer MEDICARE, SELFPAY ==
[2024-01-22 13:20] LABS: Appearance Urine Cloudy; Color Urine Orange; Leukocyte Esterase Urine Moderate (2+) (Negative); Nitrite Urine Positive (Negative); PH 5.5 (5.0-9.0); Specific Gravity - Urine >= 1.030 (1.005-1.025); UMIC TRIGGER UA YES; Urine Blood Negative (Negative); Urine Protein 30 (1+) mg/dL (Neg-Trace)
[2024-01-22 14:00] LABS: Bacteria Urine 2+ (None Seen); Hyaline Casts Urine 0-2 /LPF (0-2); RBC Urine 0-2 /HPF (0-2); Squamous Epithelial Cell Urine >20 /HPF (0-2)
== END 2024-01-22 10:57 | disposition home or self-care (01) ==
LOC: HO.LAB 10:56
PROVIDERS: PCP Internal Medicine; Visit Provider Urology
DX: R32 Unspecified urinary incontinence (principal); N32.81 Overactive bladder
CPT/HCPCS: 81001; 87086

== ENCOUNTER 2024-02-28 11:42 | Outpatient (AMB) | payer MEDICARE, SELFPAY ==
--- NOTE | 2024-02-28 11:55 | A.OFFVIS_ITS ---
Intake Visit Reasons: Bladder Botox- follow up Intake Note: Patient is present for Post Op Botox Injection follow up Urology Med: Gemtesa D/C 11/21/23 Antibiotic Allergies: None Blood Thinner: None Recent Urine Culture on 01/22/24 was treated with Macrobid Patient is still having uti symptoms today PVR: 52ml Accompanied by: Self / Same As Patient Allergies oxycodone [Percocet] Allergy (Unknown, Verified 04/17/24 08:18) Rash HPI Comments Details: 02/28/24--Shivani is a 72-year-old female who presents today to the office for a follow-up for overactive bladder symptoms. She had urodynamics which were consistent with sensory urgency. Shivani is s/p botox 100 units, she states she has less leakage, complains of some dysuria. Review of chart: 11/02/23--Shivani is a 72-year-old female who presents today to the office for a follow-up. She is on gemtesa 75 mg daily for overactive bladder symptoms. She had urodynamics which were consistent with sensory urgency. She states the medication is not controlling her bladder leakage episodes. She has leakage with urgency. She also has leakage with coughing. I have explained that anticholinergics or use mainly to target the bladder spasms. The patient has failed several p.o. anticholinergics. I have discussed bladder Botox injection. The patient is here with her daughter and is interested in proceeding with this treatment plan. She understands that this will not affect her leakage associated coughing as it relates to weak pelvic floor muscles. 05/25/2023--She was last seen by me on 04/13/2023 for urodynamics procedure. Findings consistent with Sensory urgency. Discussed Treatment options to include antimuscarinics, botox bladder injection, neuromodulation with Interstim therapy. Patient was prescribed gemtesa but states that she did not fill the Gemtesa 90 tablets as the cost was 105 dollars as she cannot afford. She states that she called to the office for different medication and Myrbetriq 50 mg was sent to the Pharmacy. Patient states that she only had minimal improvement on the Myrbetriq during the day. She states that she is going frequently in the evening and getting up frequently at night to urinate. She is willing to try the Gemtesa and wants only a 30 day supply sent to the pharm. 04/13/23-- urodynamics- Findings consistent with Sensory urgency. EMG- Appropriate changes in the waveforms were noted through out the study. There was a decrease in the EMG activity during the voiding c/w normal function of the pelvic floor. Discussed Treatment options to include antimuscarinics, botox bladder injection, neuromodulation with Interstim therapy. Discussed the use of vaginal estrogen therapy. Patient has a family history of breast cancer in her mother and aunt and was told to avoid vaginal estrogen by her SLOTS MANAGER. [facility] Medical History Sebaceous cyst Vaginal cysts History of hepatitis C Obesity COVID-19 Fibromyalgia Asthma Surgical History H/O arthroscopy of left knee (~01/2024) History of hysterectomy History of lumbar surgery History of carpal tunnel release H/O right knee surgery Family History Father Medical history unknown Mother Asthma Diabetes Hypertension Breast cancer Sister Breast cancer Social History Housing: Apartment Alcohol intake: never Patient Tobacco Use Status: Never used Tobacco e-Cigarette/Vaping Use: Never Used Second Hand Smoke Exposure: No Advance Directives Date on File: 11/19/21 service: No Current occupational status: retired Cognitive needs: No Hearing needs: No Vision needs: Yes Female Reproductive History Menstrual Age of Menarche: 13 Review of Systems Const All systems reviewed & are unremarkable except as noted in HPI and below Reports no additional complaints Eyes Reports no additional complaints ENT Reports no additional complaints Card Reports no additional complaints Resp Reports no additional complaints GI Reports no additional complaints Reports as per HPI Musc Reports no additional complaints Skin/Breast Reports system reviewed and no additional complaints, except as documented Neuro Reports no additional complaints Psych Reports no additional complaints Endo Reports no additional complaints Siddharth/Lymph Reports no additional complaints Aller/Immun Reports no additional complaints Office Procedures Post Void Residual Post Residual Void Post Void Residual (PVR): 52 [id number] Void Residual by ultrasound Results AMB Urinalysis, Automated UA Leukoctes 125 Denilson/uL Last Edit by KAMILLA BrewsterA on 02/28/24 12:06 UA Nitrite Negative Last Edit by Chandrika Langston, RMA on 02/28/24 12:06 UA Urobilinogen 0.2 mg/dL Last Edit by Chandrika Langston, RMA on 02/28/24 12:0 6 UA Protein 0 mg/dL Last Edit by Chandrika Langston, RMA on 02/28/24 12:06 UA pH 6.0 Last Edit by Chandrika Langston, RMA on 02/28/24 12:06 UA Blood 0 Isaías/uL Last Edit by Chandrika Langston, RMA on 02/28/24 12:06 UA Specific Baldwin 1.020 Last Edit by Chandrika Langston, RMA on 02/28/24 12: 06 UA Ketone Negative Last Edit by Chandrika Langston, RMA on 02/28/24 12:06 UA Bilirubin 0 mg/dL Last Edit by Chandrika Langston, RMA on 02/28/24 12:06 UA Glucose 0 mg/dL Last Edit by Chandrika Langston, RMA on 02/28/24 12:06 Results Reviewed Results Reviewed: Laboratory Last Values Urine pH (Auto) 6.0 02/28/24 12:05 Specific Baldwin (Auto) 1.020 02/28/24 12:05 Urine Protein (Auto) 0 mg/dL 02/28/24 12:05 Glucose (UA)(Auto) 0 mg/dL 02/28/24 12:05 Urine Ketones (Auto) Negative 02/28/24 12:05 Urine Blood (Auto) 0 Isaías/uL 02/28/24 12:05 Urine Nitrite (Auto) Negative 02/28/24 12:05 Urine Bilirubin (Auto) 0 mg/dL 02/28/24 12:05 Urine Urobilinogen (Auto) 0.2 mg/dL 02/28/24 12:05 Leukocyte Esterase (Auto) 125 Denilson/uL 02/28/24 12:05 Assessment & Plan Assessment & Plan (1) OAB (overactive bladder): Code(s): N32.81 - Overactive bladder Category: Medical (2) Frequency-urgency syndrome: Code(s): N31.8 - Other neuromuscular dysfunction of bladder Category: Medical (3) UTI symptoms: Code(s): R39.9 - Unspecified symptoms and signs involving the genitourinary system Category: Medical Plan s/p Botox injection 100 units, Dysuria, ceftin bid for 10 days. Orders: Orders AMB Urinalysis Automated 02/28/24 Z13.9 - Encounter for screening, unspecified AMB Post Void Residual by ultrasound 02/28/24 N31.8 - Other neuromuscular dysfunction of bladder Medications: New cefuroxime axetil 500 mg PO BID 20 tabs 0RF 10 days Patient Instructions: The patient had an opportunity to ask questions regarding treatment plan. The patient expressed understanding and agreement with the above treatment plan. The patient is aware they should contact our office by phone for worsening of their current condition or the appearance of new symptoms. Compliance is encouraged with any medications and followup testing that is ordered. It is a privilege to be allowed the opportunity to participate in the urologic care of your patient. If you have any questions or concerns regarding treatment for the above conditions please do not hesitate to contact me. The office telephone contact is [phone]. This note is constructed in part using voice recognition software. While every effort has been made to ensure accuracy entry level mechanical engineer errors may have been included. Yours sincerely, Parker Waters MD Coding Level of Care Code Est Pt Level 4 (39648) Diagnoses OAB (overactive bladder) N32.81 Frequency-urgency syndrome N31.8 UTI symptoms R39.9 CPT Codes Post Residual Void - PVR CPT Code: 35375-Macr Void Residual by ultrasound ([id number])
== END 2024-02-28 12:29 | disposition home or self-care (01) ==
PROVIDERS: PCP Internal Medicine; Visit Provider Urology
DX: N32.81 Overactive bladder (principal); N31.8 Other neuromuscular dysfunction of bladder; R39.9 Unspecified symptoms and signs involving the genitourinary system
CPT/HCPCS: 99214

== ENCOUNTER → 2024-02-28 11:42 | Outpatient (BNVA) | payer MEDICARE, SELFPAY | PROVIDERS: PCP Internal Medicine; Visit Provider Urology | DX: N32.81 Overactive bladder (principal); N31.8 Other neuromuscular dysfunction of bladder; R39.9 Unspecified symptoms and signs involving the genitourinary system | CPT/HCPCS: 51798; 81003; 99212 ==

== ENCOUNTER 2024-04-17 08:10 | Outpatient (AMB) | payer MEDICARE, SELFPAY ==
[2024-04-17 08:17] VITALS: BP 128/60; PULSE 82; O2SAT 96; BMI 31.3
--- NOTE | 2024-04-17 08:17 | MHC.OFFVIS ---
Vital Signs 04/17/24 08:17 Height 4 ft 11 in Weight 154 lb 12.232 oz BMI 31.3 BP 128/60 Blood Pressure Location Lt brachial Position Sitting Pulse 82 Pulse Source Pulse Oximeter Pulse Oximetry (%) 96 Oxygen Delivery Method Room Air Intake Visit Reasons: abdominal pains Intake Note: Shivani presents in office today for a scheduled FUV. CC; Pt has reported hx of abd pain. Pt reports that they have been doing moderately better since their last visit. Pt does report having breakthrough, intermittent sx which primarily seem exacerbated at night. Pt reports needing a refill of Vitamin D3 if possible. [employer] Required: No Allergies oxycodone [Percocet] Allergy (Unknown, Verified 04/17/24 08:18) Rash HPI HPI abdominal pains: Details: LAST VISIT: IBS (irritable bowel syndrome) GERD (gastroesophageal reflux disease) Chronic idiopathic constipation Plan Continue pantoprazole and famotidine. Patient will continue avoiding dietary triggers. Staying upright for minimum 3 hours after meals discussed with patient. Continue taking magnesium. Increase fluid intake and activity to promote better bowel motility. Patient will return in 6 months, sooner on as needed basis. Patient is agreeable to this plan and verbalizes understanding of instructions. She was given the opportunity to ask questions and all questions answered. ? TODAY'S VISIT: Patient is here today for follow-up. Patient reports that she is doing significantly better, however occasionally patient will still have acid reflux depending on what she eats. Patient is not eating late at night. Her last meal is at 18:00. Patient is taking pantoprazole in the morning and famotidine as needed at bedtime. Patient denies any nausea or vomiting. Denies any dyspepsia, dysphagia or odynophagia. Patient admits that she is having trouble moving her bowels. Patient has bowel movements daily, however she feels like she does not empty her bowels completely. Patient denies melena, hematochezia, unintentional weight loss or ribbon like stools. [facility], [facility] Medical History Sebaceous cyst Vaginal cysts History of hepatitis C Obesity COVID-19 Fibromyalgia Asthma Surgical History H/O arthroscopy of left knee (~01/2024) History of hysterectomy History of lumbar surgery History of carpal tunnel release H/O right knee surgery Family History Father Medical history unknown Mother Asthma Diabetes Hypertension Breast cancer Sister Breast cancer Social History Housing: Apartment Alcohol intake: never Patient Tobacco Use Status: Never used Tobacco e-Cigarette/Vaping Use: Never Used Second Hand Smoke Exposure: No Advance Directives Date on File: 11/19/21 service: No Current occupational status: retired Cognitive needs: No Hearing needs: No Vision needs: Yes Female Reproductive History Menstrual Age of Menarche: 13 Review of Systems Const Denies weight gain and Denies weight loss ENT Reports no additional complaints, Denies dysphagia and Denies odynophagia Card Reports no additional complaints Resp Reports no additional complaints GI Denies abdominal pain, Denies belching, Denies melena, Denies bloating, Denies change in bowel habits, Reports constipation, Denies dysphagia, Denies excessive flatus, Denies dyspepsia, Denies heartburn, Denies diarrhea, Denies loose stools, Denies nausea, Denies odynophagia and Denies vomiting Reports no additional complaints Musc Reports no additional complaints Neuro Reports no additional complaints Psych Reports no additional complaints Endo Reports no additional complaints Physical Exam Vital Signs: Last Vital Signs Pulse 82 04/17/24 08:17 BP 128/60 04/17/24 08:17 Pulse Ox 96 04/17/24 08:17 Oxygen Delivery Method Room Air 04/17/24 08:17 BMI result Body Mass Index 31.3 Const General: no acute distress Nutritional Appearance: obese Orientation/consciousness: patient oriented x3 Resp Effort & Inspection: normal respiratory effort, able to speak in complete sentences, no tracheal deviation and symmetric chest movement Auscultation: clear to auscultation bilaterally Cardio Rate: regular rate GI Inspection: Yes normal to inspection, No distended and Yes obesity Palpation (GI): Soft to palpation, not firm, nontender and No hepatosplenomegaly present Auscultation: normal bowel sounds General: Yes no CVA tenderness Back/Spine/Pelvis Back: no CVA tenderness Skin General skin exam: elasticity normal, turgor normal and dry skin Neuro General: patient oriented x3 Psych Appearance: grossly normal Mental Status: mental status grossly normal Assessment & Plan Assessment & Plan (1) IBS (irritable bowel syndrome): Code(s): K58.9 - Irritable bowel syndrome, unspecified Qualifiers: Irritable bowel syndrome type: without diarrhea Qualified Code(s): K58.9 - Irritable bowel syndrome, unspecified (2) GERD (gastroesophageal reflux disease): Code(s): K21.9 - Gastro-esophageal reflux disease without esophagitis Qualifiers: Esophagitis presence: esophagitis presence not specified Qualified Code(s): K21.9 - Gastro-esophageal reflux disease without esophagitis (3) Chronic idiopathic constipation: Code(s): K59.04 - Chronic idiopathic constipation Plan Continue pantoprazole daily, and famotidine on as needed basis. Avoid dietary triggers. Increase fluid intake and activity to promote better bowel motility. Patient will start taking senna daily. Follow-up in 6 months, sooner on as needed basis. She is agreeable to this plan and verbalizes understanding of instructions. She was given the opportunity to ask questions and all questions answered. Thank you for allowing me to participate in her care Medications: New sennosides (Natural Senna Laxative) 17.2 mg (2 x 8.6 mg) PO BEDTIME 60 tabs 3RF constipation K59.00 - Constipation, unspecified Refilled pantoprazole take one tablet half an hour before breakfast 40 mg PO DAILY 90 tabs 2RF K21.9 - Gastro-esophageal reflux disease without esophagitis cholecalciferol (vitamin D3) 100 mcg (2 x 50 mcg (2,000 unit)) PO DAILY 180 caps 3RF R79.89 - Other specified abnormal findings of blood chemistry Discontinued sucralfate Discontinued Reason: Patient no longer taking 1 g PO BID 60 tabs 1RF R19.7 - Diarrhea, unspecified Coding Level of Care Code Est Pt Level 3 (80893) Diagnoses Irritable bowel syndrome without diarrhea K58.9 Irritable bowel syndrome type: without diarrhea Gastroesophageal reflux disease, unspecified whether esophagitis present K21.9 Esophagitis presence: esophagitis presence not specified Chronic idiopathic constipation K59.04 Time Spent (min) 25 Comment 15 minutes spent with patient and additional 10 minutes spent reviewing her records
== END 2024-04-17 08:46 | disposition home or self-care (01) ==
PROVIDERS: PCP Internal Medicine; Visit Provider Nurse Practitioner Family
DX: K58.9 Irritable bowel syndrome, unspecified (principal); K21.9 Gastro-esophageal reflux disease without esophagitis; K59.04 Chronic idiopathic constipation
CPT/HCPCS: 99213

== ENCOUNTER → 2024-04-17 08:10 | Outpatient (BNVA) | payer MEDICARE, SELFPAY | PROVIDERS: PCP Internal Medicine; Visit Provider Nurse Practitioner Family | DX: K58.9 Irritable bowel syndrome, unspecified (principal); K21.9 Gastro-esophageal reflux disease without esophagitis; K59.04 Chronic idiopathic constipation | CPT/HCPCS: 99212 ==

== ENCOUNTER 2024-05-27 09:40 | Outpatient (AMB) | payer MEDICARE, SELFPAY ==
[2024-05-27 09:42] VITALS: BP 128/82; PULSE 73; O2SAT 98; BMI 30.5
--- NOTE | 2024-05-27 09:42 | MHC.PC.OV ---
Vital Signs 05/27/24 09:42 Height 4 ft 11 in Weight 151 lb BMI 30.5 BP 128/82 Blood Pressure Location Lt brachial Position Sitting Pulse 73 Pulse Source Pulse Oximeter Pulse Oximetry (%) 98 Oxygen Delivery Method Room Air Intake Visit Reasons: Dr Belle Hirsch cataract 06/11 lt & 06/25 rt Miner Assistant Required: No Accompanied by: Self / Same As Patient Allergies oxycodone [Percocet] Allergy (Unknown, Verified 05/27/24 09:43) Rash Medication List - Last Reconciled 05/27/24 by Janes Espinal MD [albuterol sulfate 90 mcg inhalation Q4-6H PRN] cholecalciferol (vitamin D3) 100 mcg (2 x 50 mcg (2,000 unit)) PO DAILY famotidine 20 mg PO BEDTIME gabapentin mg PO magnesium oxide 400 mg PO DAILY pantoprazole 40 mg PO DAILY sennosides (Natural Senna Laxative) 17.2 mg (2 x 8.6 mg) PO BEDTIME vibegron (Gemtesa) 75 mg PO DAILY 30 days Tobacco use date assessed: 05/27/24 Fall risk assessment: 1 Fall in past year Last assessed Fall Risk: 05/27/24 Dental Screening Dental Screen Date: 05/27/24 Did you have a dental visit in the last 12 months?: Yes Did you have a dental problem in the last 6 months where you did not have access to dental care?: No Was dental information given to patient?: Patient has dentist HPI Dr Belle Hirsch cataract 06/11 lt & 06/25 rt HPI Details having bilateral cataracts repaired; as urinary incontinence on rx ; no historty of CAD PFSH Medical History Sebaceous cyst Vaginal cysts History of hepatitis C Obesity COVID-19 Fibromyalgia Asthma Surgical History H/O arthroscopy of left knee (~01/2024) History of hysterectomy History of lumbar surgery History of carpal tunnel release H/O right knee surgery Family History Father Medical history unknown Mother Asthma Diabetes Hypertension Breast cancer Sister Breast cancer Social History Housing: Apartment Alcohol intake: never Patient Tobacco Use Status: Never used Tobacco Tobacco use type: Cigarette e-Cigarette/Vaping Use: Never Used Second Hand Smoke Exposure: No Advance Directives Date on File: 11/19/21 service: No Current occupational status: retired Cognitive needs: No Hearing needs: No Vision needs: Yes Female Reproductive History Menstrual Age of Menarche: 13 Questionnaire PHQ-9 Over the last 2 weeks, how often have you been bothered by any of the following problems? 1. Little interest or pleasure in doing things: several days 2. Feeling down, depressed, or hopeless: not at all 3. Trouble falling or staying asleep, or sleeping too much: several days 4. Feeling tired or having little energy: more than half the days 5. Poor appetite or overeating: more than half the days 6. Feeling bad about yourself - or that you are a failure or have let yourself or your family down: not at all 7. Trouble concentrating on things, such as reading the newspaper or watching television: not at all 8. Moving or speaking so slowly that other people could have noticed. Or the opposite - being so fidgety or restless that you have been moving around a lot more than usual: several days 9. Thoughts that you would be better off or of hurting yourself in some way: not at all Total score: 7 Depression Screening Interpretation: Negative Depression Screening Done: Yes 46387 - PHQ-9 Billing: Yes Source: Developed by Drs. Cosme Yang, Violetta Escalante, Cornelio John and colleagues, with an educational ronna from [employer]. Thrive Questionnaire Date Thrive assessed: 05/27/24 I am a: Patient What is your living situation today?: I have a steady place to live Within the past 12 months, did the food you bought not last and you didn't have the money to get more?: Never true Within the past 12 months, did you worry whether your food would run out before you got money to buy more?: Never true Do you have trouble paying for medicines?: No Do you have trouble getting transportation to medical appointments?: No Do you have trouble paying your heating and electricity bill?: No Do you have trouble taking care of your child, family member or friend?: No Do you have trouble with day-to-day activities such as bathing, preparing meals, shopping, managing finances, etc.?: No Are you currently unemployed and looking for a job?: No Are you interested in more education?: No Currently or been in a relationship where the following occur: No concerns reported THRIVE Score: 0 AUDIT C Alcohol Use Questionnaire (AUDIT-C) 1. How often do you have a drink containing alcohol?: Never Total Score: 0 Score Reviewed/Action Taken: Yes RABIA-7 AMB Questionnaire RABIA-7 Date RABIA - 7 assessed: 05/27/24 Feeling nervous, anxious, or on edge: 0 = Not at all Not being able to stop or control worryin = Not at all Worrying too much about different things: 0 = Not at all Trouble relaxin = Not at all Being so restless that it is hard to sit still: 0 = Not at all Becoming easily annoyed or irritable: 0 = Not at all Feeling afraid as if something awful might happen: 0 = Not at all Total RABIA-7 score (0-4 normal; 5-9 mild; 10-14 moderate; 15-21 severe): 0 Source: Developed by Drs. Cosme Yang, Violetta Escalante, Cornelio John and colleagues, with an educational ronna from [employer]. Review of Systems Const Denies chills, Denies fatigue, Denies headache(s) and Denies weight loss Eyes Denies change in vision, Denies diplopia and Denies eye pain ENT Denies vertigo, Denies dizziness, Denies headache(s) and Denies nasal discharge Card Denies chest pain, Denies rapid heart rate and Denies dyspnea on exertion Resp Denies chest congestion, Denies cough, Denies pain with cough and Denies dyspnea on exertion GI Denies abdominal pain, Denies hematochezia and Denies change in bowel habits Musc Denies myalgias, Denies arthralgias and Denies joint swelling Skin/Breast Denies lesions and Denies unusual bruising Neuro Denies vertigo, Denies dizziness, Denies headache(s) and Denies focal weakness Endo Denies fatigue Physical exam (Primary Care) Vital Signs: Last Vital Signs Pulse 73 05/27/24 09:42 BP 128/82 05/27/24 09:42 Pulse Ox 98 05/27/24 09:42 Oxygen Delivery Method Room Air 05/27/24 09:42 BMI result Body Mass Index 30.5 Tobacco/Smoking Status: Tobacco use Status Tobacco use date assessed 05/27/24 05/27/24 09:48 Patient Tobacco Use Status Never used Tobacco 05/27/24 09:48 Tobacco use type Cigarette 05/27/24 09:48 e-Cigarette/Vaping Use Never Used 05/27/24 09:48 PHQ-9: PHQ-9 Score PHQ-9: Total score 7 05/27/24 09:48 Depression Screening Interpretation: Negative Thrive Assessment: Date of Thrive Assessment Date Thrive assessed 05/27/24 05/27/24 09:48 Currently or been in a relationship where the following occur: No concerns reported Const General: cooperative, healthy appearing and no acute distress Orientation/consciousness: oriented to person, oriented to place and oriented to time HENMT Head: Yes normal to inspection, Yes normocephalic and Yes atraumatic Mouth: Normal oral and palatal mucosa present and tongue normal Throat: Yes posterior oropharynx normal and Yes uvula midline Eyes General: appearance normal, both eyes and all related structures Neck Neck: Yes normal visual inspection, Yes full ROM and Yes no lymphadenopathy Thyroid: Thyroid normal Carotids: normal carotid upstroke Chest Chest palpation & inspection: normal inspection of the chest Resp Effort & Inspection: normal respiratory effort and able to speak in complete sentences Auscultation: clear to auscultation bilaterally Cardio Jugular venous distension: no JVD Palpation: normal PMI Rate: regular rate Rhythm: regular rhythm Heart sounds: S1 normal heart sound present and S2 normal heart sound present GI Inspection: Yes normal to inspection Palpation (GI): Soft to palpation and No hepatosplenomegaly present Auscultation: normal bowel sounds General: Yes no CVA tenderness Back/Spine/Pelvis Back: no CVA tenderness Skin General skin exam: no rashes or lesions noted Neuro General: oriented to person, oriented to place and oriented to time Extrem General: Yes normal to inspection and Yes full ROM Coding Level of Care Code Est Pt Level 4 (59125) Diagnoses Pre-op evaluation Z01.818 Frequency-urgency syndrome N31.8 Additional Codes PHQ-9 - 77510 - PHQ-9 Billing: Yes ([id number]) Assessment & Plan Assessment & Plan (1) Pre-op evaluation: Code(s): Z01.818 - Encounter for other preprocedural examination Category: Medical Plan: low risk of cardiovascular complications; cleared for surgery (2) Frequency-urgency syndrome: Code(s): N31.8 - Other neuromuscular dysfunction of bladder Category: Medical Plan: stable; same rx
== END 2024-05-27 11:49 | disposition home or self-care (01) ==
PROVIDERS: PCP Internal Medicine; Visit Provider Internal Medicine
DX: Z01.818 Encounter for other preprocedural examination (principal); N31.8 Other neuromuscular dysfunction of bladder

== ENCOUNTER → 2024-05-27 09:40 | Outpatient (BNVA) | payer MEDICARE, SELFPAY | PROVIDERS: PCP Internal Medicine; Visit Provider Internal Medicine | DX: Z01.818 Encounter for other preprocedural examination (principal); N31.8 Other neuromuscular dysfunction of bladder | CPT/HCPCS: 96127; 99212 ==

== ENCOUNTER 2024-05-30 11:41 | Outpatient (AMB) | payer MEDICARE, SELFPAY ==
--- NOTE | 2024-05-29 22:24 | MHC.OFFVIS ---
Intake Visit Reasons: 3m/OAB symptoms Intake Note: Patient is present for 3M/OAB SYMPTOMS Urology Medication:GEMTESA Antibiotic Allergy:NONE Blood Thinner:NONE Winch Driver Required: Yes Winch Driver Name: Joanna Ballesteros Information Interpreted: non-clinical & clinical Allergies oxycodone [Percocet] Allergy (Unknown, Verified 05/30/24 11:43) Rash Medication List - Last Reconciled 05/30/24 by Parker Waters MD [albuterol sulfate 90 mcg inhalation Q4-6H PRN] cholecalciferol (vitamin D3) 100 mcg (2 x 50 mcg (2,000 unit)) PO DAILY famotidine 20 mg PO BEDTIME gabapentin mg PO magnesium oxide 400 mg PO DAILY pantoprazole 40 mg PO DAILY sennosides (Natural Senna Laxative) 17.2 mg (2 x 8.6 mg) PO BEDTIME vibegron (Gemtesa) 75 mg PO DAILY 30 days HPI Comments Details: 05/30/24--Shivani is a 73-year-old female who presents today to the office for a follow-up for overactive bladder symptoms. She is on combination therapy gemtesa 75 mg daily and is s/p botox 100 units - 11/21/23. Currently she states she is doing good, Urinary frequency and urgency under control. Plan fu in 6 months Review of chart: 02/28/24--Shivani is a 72-year-old female who presents today to the office for a follow-up for overactive bladder symptoms. She had urodynamics which were consistent with sensory urgency. Shivani is s/p botox 100 units, she states she has less leakage, complains of some dysuria. 11/02/23--Shivani is a 72-year-old female who presents today to the office for a follow-up. She is on gemtesa 75 mg daily for overactive bladder symptoms. She had urodynamics which were consistent with sensory urgency. She states the medication is not controlling her bladder leakage episodes. She has leakage with urgency. She also has leakage with coughing. I have explained that anticholinergics or use mainly to target the bladder spasms. The patient has failed several p.o. anticholinergics. I have discussed bladder Botox injection. The patient is here with her daughter and is interested in proceeding with this treatment plan. She understands that this will not affect her leakage associated coughing as it relates to weak pelvic floor muscles. 05/25/2023--She was last seen by me on 04/13/2023 for urodynamics procedure. Findings consistent with Sensory urgency. Discussed Treatment options to include antimuscarinics, botox bladder injection, neuromodulation with Interstim therapy. Patient was prescribed gemtesa but states that she did not fill the Gemtesa 90 tablets as the cost was 105 dollars as she cannot afford. She states that she called to the office for different medication and Myrbetriq 50 mg was sent to the Pharmacy. Patient states that she only had minimal improvement on the Myrbetriq during the day. She states that she is going frequently in the evening and getting up frequently at night to urinate. She is willing to try the Gemtesa and wants only a 30 day supply sent to the pharm. 04/13/23-- urodynamics- Findings consistent with Sensory urgency. EMG- Appropriate changes in the waveforms were noted through out the study. There was a decrease in the EMG activity during the voiding c/w normal function of the pelvic floor. Discussed Treatment options to include antimuscarinics, botox bladder injection, neuromodulation with Interstim therapy. Discussed the use of vaginal estrogen therapy. Patient has a family history of breast cancer in her mother and aunt and was told to avoid vaginal estrogen by her FLIGHT RADIO OPERATOR. [facility] Medical History Sebaceous cyst Vaginal cysts History of hepatitis C Obesity COVID-19 Fibromyalgia Asthma Surgical History H/O arthroscopy of left knee (~01/2024) History of hysterectomy History of lumbar surgery History of carpal tunnel release H/O right knee surgery Family History Father Medical history unknown Mother Asthma Diabetes Hypertension Breast cancer Sister Breast cancer Social History Housing: Apartment Alcohol intake: never Patient Tobacco Use Status: Never used Tobacco Tobacco use type: Cigarette e-Cigarette/Vaping Use: Never Used Second Hand Smoke Exposure: No Advance Directives Date on File: 11/19/21 service: No Current occupational status: retired Cognitive needs: No Hearing needs: No Vision needs: Yes Female Reproductive History Menstrual Age of Menarche: 13 Review of Systems Const All systems reviewed & are unremarkable except as noted in HPI and below Reports no additional complaints Eyes Reports no additional complaints ENT Reports no additional complaints Card Reports no additional complaints Resp Reports no additional complaints GI Reports no additional complaints Reports as per HPI Musc Reports no additional complaints Skin/Breast Reports system reviewed and no additional complaints, except as documented Neuro Reports no additional complaints Psych Reports no additional complaints Endo Reports no additional complaints Siddharth/Lymph Reports no additional complaints Aller/Immun Reports no additional complaints Telehealth Telehealth Telehealth Platform: [employer] Location of provider rendering services: practice address Location of patient: address on file Patient Identification confirmed using: Name, : Yes Telehealth method: voice only Patient verbally consented to treatment: Yes Patient verbally consented to billing insurance company: Yes Patient informed of any privacy concerns related to visit: Yes Minutes spent on Phone/Video with Pt.: 15 Assessment & Plan Assessment & Plan (1) OAB (overactive bladder): Code(s): N32.81 - Overactive bladder Category: Medical (2) Frequency-urgency syndrome: Code(s): N31.8 - Other neuromuscular dysfunction of bladder Category: Medical (3) UTI symptoms: Code(s): R39.9 - Unspecified symptoms and signs involving the genitourinary system Category: Medical Plan FU in 6 months Medications: Refilled vibegron (Gemtesa) 75 mg PO DAILY 30 days 30 tabs 5RF Patient Instructions: The patient had an opportunity to ask questions regarding treatment plan. The patient expressed understanding and agreement with the above treatment plan. The patient is aware they should contact our office by phone for worsening of their current condition or the appearance of new symptoms. Compliance is encouraged with any medications and followup testing that is ordered. It is a privilege to be allowed the opportunity to participate in the urologic care of your patient. If you have any questions or concerns regarding treatment for the above conditions please do not hesitate to contact me. The office telephone contact is [phone]. This note is constructed in part using voice recognition software. While every effort has been made to ensure accuracy marketing information analyst errors may have been included. Yours sincerely, Parker Waters MD Coding Level of Care Code Tele Est Pt Level 3 (30560) Diagnoses OAB (overactive bladder) N32.81 Frequency-urgency syndrome N31.8 UTI symptoms R39.9
== END 2024-05-30 11:46 | disposition home or self-care (01) ==
LOC: HO.HUSH 11:41
PROVIDERS: PCP Internal Medicine; Visit Provider Urology
DX: N32.81 Overactive bladder (principal); N31.8 Other neuromuscular dysfunction of bladder; R39.9 Unspecified symptoms and signs involving the genitourinary system
CPT/HCPCS: 99442

== ENCOUNTER → 2024-05-30 11:41 | Outpatient (BNVA) | payer MEDICARE, SELFPAY | PROVIDERS: PCP Internal Medicine; Visit Provider Urology ==

== ENCOUNTER 2024-07-26 08:36 | Outpatient (AMB) | payer MEDICARE, SELFPAY ==
[2024-07-26 08:42] VITALS: BP 100/62; PULSE 70; O2SAT 97; BMI 31.0
--- NOTE | 2024-07-26 08:42 | A.OFFVIS_ITS ---
Vital Signs 07/26/24 08:42 Height 4 ft 11 in Weight 153 lb 7.068 oz BMI 31.0 BP 100/62 Blood Pressure Location Rt brachial Position Sitting Pulse 70 Pulse Source Pulse Oximeter Pulse Oximetry (%) 97 Oxygen Delivery Method Room Air Intake Visit Reasons: 3 mo f/u Chronic idiopathic constipation Intake Note: ESTABLISHED PATIENT Reason; 3 mo fu Changes/concerns? Pt reports worsening nocturnal reflux. Was well controlled with pepcid until the last month Financial Sales Manager Required: No Allergies oxycodone [Percocet] Allergy (Unknown, Verified 07/26/24 08:42) Rash HPI HPI 3 mo f/u Chronic idiopathic constipation: Details: LAST VISIT: IBS (irritable bowel syndrome) GERD (gastroesophageal reflux disease) Chronic idiopathic constipation Plan Continue pantoprazole daily, and famotidine on as needed basis. Avoid dietary triggers. Increase fluid intake and activity to promote better bowel motility. Patient will start taking senna daily. Follow-up in 6 months, sooner on as needed basis. She is agreeable to this plan and verbalizes understanding of instructions. She was given the opportunity to ask questions and all questions answered. ? Thank you for allowing me to participate in her care Medications New sennosides (Natural Senna Laxative) 17.2 mg (2 x 8.6 mg) PO BEDTIME 60 tabs 3RF constipation K59.00 Refilled pantoprazole take one tablet half an hour before breakfast 40 mg PO DAILY 90 tabs 2RF K21.9 cholecalciferol (vitamin D3) 100 mcg (2 x 50 mcg (2,000 unit)) PO DAILY 180 caps 3RF R79.89 Discontinued sucralfate Discontinued Reason: Patient no longer taking 1 g PO BID 60 tabs 1RF R19.7 TODAY'S VISIT: Patient is here today for follow-up. Patient reports that she is taking pantoprazole in the morning and famotidine at night time and was doing well until just about few weeks ago started to having worsening reflux during the night. Patient denies dyspepsia, dysphagia or odynophagia. Reports that she is doing better and moving her bowels with the help of senna. Patient denies melena, hematochezia, unintentional weight loss or ribbon like stools. Patient denies any other GI concerning symptoms. Patient reports that she is not eating late at night. Last meal is before 17:00. [facility] Medical History Cataract Sebaceous cyst Vaginal cysts History of hepatitis C Obesity COVID-19 Fibromyalgia Asthma Surgical History H/O arthroscopy of left knee (~01/2024) History of hysterectomy History of lumbar surgery History of carpal tunnel release H/O right knee surgery Family History Father Medical history unknown Mother Asthma Diabetes Hypertension Breast cancer Sister Breast cancer Social History Housing: Apartment Alcohol intake: never Patient Tobacco Use Status: Never used Tobacco Tobacco use type: Cigarette e-Cigarette/Vaping Use: Never Used Second Hand Smoke Exposure: No Advance Directives Date on File: 11/19/21 service: No Current occupational status: retired Cognitive needs: No Hearing needs: No Vision needs: Yes Female Reproductive History Menstrual Age of Menarche: 13 Review of Systems Const Denies weight gain and Denies weight loss ENT Reports no additional complaints, Denies dysphagia and Denies odynophagia Card Reports no additional complaints Resp Reports no additional complaints GI Denies abdominal pain, Denies belching, Denies melena, Denies bloating, Denies change in bowel habits, Denies dysphagia, Denies excessive flatus, Denies dyspepsia, Denies heartburn, Denies diarrhea, Denies loose stools, Denies nausea, Denies odynophagia and Denies vomiting Musc Reports no additional complaints Neuro Reports no additional complaints Psych Reports no additional complaints Endo Reports no additional complaints Physical Exam Vital Signs: Last Vital Signs Pulse 70 07/26/24 08:42 BP 100/62 07/26/24 08:42 Pulse Ox 97 07/26/24 08:42 Oxygen Delivery Method Room Air 07/26/24 08:42 BMI result Body Mass Index 31.0 Const General: no acute distress Nutritional Appearance: obese Orientation/consciousness: patient oriented x3 Resp Effort & Inspection: normal respiratory effort, able to speak in complete sentences, no tracheal deviation and symmetric chest movement Auscultation: clear to auscultation bilaterally Cardio Rate: regular rate GI Inspection: Yes normal to inspection, No distended and Yes obesity Palpation (GI): Soft to palpation, not firm, nontender and No hepatosplenomegaly present Auscultation: normal bowel sounds General: Yes no CVA tenderness Back/Spine/Pelvis Back: no CVA tenderness Skin General skin exam: elasticity normal, turgor normal and dry skin Neuro General: patient oriented x3 Psych Appearance: grossly normal Mental Status: mental status grossly normal Assessment & Plan Assessment & Plan (1) IBS (irritable bowel syndrome): Code(s): K58.9 - Irritable bowel syndrome, unspecified Qualifiers: Irritable bowel syndrome type: without diarrhea Qualified Code(s): K58.9 - Irritable bowel syndrome, unspecified (2) GERD (gastroesophageal reflux disease): Code(s): K21.9 - Gastro-esophageal reflux disease without esophagitis Qualifiers: Esophagitis presence: without esophagitis Qualified Code(s): K21.9 - Gastro-esophageal reflux disease without esophagitis (3) Chronic idiopathic constipation: Code(s): K59.04 - Chronic idiopathic constipation Plan Will change PPI to omeprazole. Can take famotidine at bedtime. Avoid dietary triggers and late night snacking. Staying upright for minimum 3 hours after meals discussed with patient. Continue senna daily. Increase fiber and fluid intake to promote better bowel motility. Follow-up in 3 months, sooner on as needed basis. She is agreeable to this plan and verbalizes understanding of instructions. She was given the opportunity to ask questions and all questions answered. Thank you for allowing me to participate in her care Orders: Orders Complete Blood Count no Diff Today K21.9 - Gastro-esophageal reflux disease without esophagitis Comprehensive Met. Panel Today K21.9 - Gastro-esophageal reflux disease without esophagitis Medications: New omeprazole 40 mg PO DAILY 90 caps 3RF K21.9 - Gastro-esophageal reflux disease without esophagitis Discontinued pantoprazole take one tablet half an hour before breakfast Discontinued Reason: Doctor's Order 40 mg PO DAILY 90 tabs 2RF K21.9 - Gastro-esophageal reflux disease without esophagitis Coding Level of Care Code Est Pt Level 3 (01926) Diagnoses Irritable bowel syndrome without diarrhea K58.9 Irritable bowel syndrome type: without diarrhea Gastroesophageal reflux disease without esophagitis K21.9 Esophagitis presence: without esophagitis Chronic idiopathic constipation K59.04 Time Spent (min) 25 Comment 15 minutes spent with patient and additional 10 minutes spent reviewing her records
== END 2024-07-26 09:09 | disposition home or self-care (01) ==
PROVIDERS: PCP Internal Medicine; Visit Provider Nurse Practitioner Family
DX: K58.9 Irritable bowel syndrome, unspecified (principal); K21.9 Gastro-esophageal reflux disease without esophagitis; K59.04 Chronic idiopathic constipation
CPT/HCPCS: 99213

== ENCOUNTER 2024-07-26 08:36 | Outpatient (REF) | payer MEDICARE, SELFPAY ==
[2024-07-26 09:44] LABS: Hematocrit 38.8 % (37.0-47.0); Hemoglobin 12.2 g/dl (12.0-16.0); Mean Corpuscular HGB Conc 31.4 g/dl (31.0-35.0); Mean Corpuscular Hemoglobin 27.5 pg (27.0-33.0); Mean Corpuscular Volume 87.6 fL (80.0-98.0); Mean Platelet Volume 11.1 fL (9.4-12.3); Platelet Count 231 X10*3/uL (160-400); Red Blood Count 4.43 X10*6/uL (4.20-5.50); White Blood Count 4.6 X10*3/uL (4.8-10.8)
[2024-07-26 10:21] LABS: Alanine Aminotransferase 17 U/L (0-31); Albumin Level 4.4 g/dL (3.5-5.0); Alkaline Phosphatase 55 U/L (39-117); Anion Gap 10 (12-20); Aspartate Amino Transferase 28 U/L (5-31); Bilirubin Total 0.5 mg/dL (0.0-1.0); Blood Urea Nitrogen 15 mg/dL (9-16); Calcium 9.3 mg/dL (8.4-10.2); Carbon Dioxide 25 mmol/L (22-29); Chloride 111 mmol/L (96-108); Estimated Glomerular Filt Rate > 60; Glucose Random 101 mg/dL (60-115); Potassium 3.8 mmol/L (3.3-5.1); Sodium 142 mmol/L (135-145); Total Protein 7.1 g/dL (6.5-8.0)
== END 2024-07-26 08:37 | disposition home or self-care (01) ==
LOC: HO.LAB 08:36
PROVIDERS: PCP Internal Medicine; Visit Provider Nurse Practitioner Family
DX: K21.9 Gastro-esophageal reflux disease without esophagitis (principal); K58.9 Irritable bowel syndrome, unspecified
CPT/HCPCS: 36415; 80053; 85027; 99212

== ENCOUNTER → 2024-08-12 08:21 | Outpatient (BNVA) | payer MEDICARE, SELFPAY | PROVIDERS: PCP Internal Medicine; Visit Provider Obstetrics & Gynecology | DX: Z01.419 Encounter for gynecological examination (general) (routine) without abnormal findings (principal); Z78.0 Asymptomatic menopausal state | CPT/HCPCS: G0101 ==

== ENCOUNTER 2024-09-09 15:37 | Outpatient (AMB) | payer MEDICARE, SELFPAY ==
--- NOTE | 2024-09-09 15:41 | MHC.OFFVIS ---
Vital Signs 09/09/24 15:50 Height 4 ft 11 in Weight 149 lb 14.629 oz BMI 30.3 BP 136/60 Blood Pressure Location Rt brachial Position Sitting Pulse 82 Pulse Source Pulse Oximeter Pulse Oximetry (%) 99 Oxygen Delivery Method Room Air Intake Visit Reasons: CIC f/u Intake Note: ESTABLISHED PATIENT for mgmt of GERD and CIC. Labs done. Chief Complaint; Pt reports stopping omeprazole 40 mg and switching back to pantoprazole 40 mg due to having adverse reaction to the medication. Pt states that, with pantoprazole and dietary changes, she is feeling much better. No concerns currently. 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 Can take famotidine at bedtime. Avoid dietary triggers and late night snacking. Staying upright for minimum 3 hours after meals discussed with patient. Continue senna daily. Increase fiber and fluid intake to promote better bowel motility. Follow-up in 3 months, sooner on as needed basis. She is agreeable to this plan and verbalizes understanding of instructions. She was given the opportunity to ask questions and all questions answered. ? Thank you for allowing me to participate in her care Orders Orders Complete Blood Count no Diff Today K21.9 Comprehensive Met. Panel Today K21.9 Medications New omeprazole 40 mg PO DAILY 90 caps 3RF K21.9 Discontinued pantoprazole take one tablet half an hour before breakfast Discontinued Reason: Doctor's Order 40 mg PO DAILY 90 tabs 2RF K21.9 TODAY'S VISIT Patient is here today for follow-up. Patient reports that since last visit she had to change pantoprazole back to omeprazole. Patient states that pantoprazole was causing her worse epigastric pain. Patient reports that even famotidine was not working for her when she was taking the pantoprazole. Patient reports that she tried that for 1 week. Patient states that she changed her diet. She used to eat lots of spices. Patient states that she grew up eating spicy food. Patient states that she is unable to tolerate it anymore. Patient reports that she has been doing much better changing her diet. Taking omeprazole in the morning and famotidine at bedtime. His symptoms of acid reflux have suppressed quite a bit. She denies dyspepsia, dysphagia or odynophagia. Reports that she is moving her bowels better now that she is taking senna. Patient increase fluid in her diet as well. Denies melena, hematochezia, unintentional weight loss or ribbon like stools. FOR[facility]LY [facility] Medical History Cataract Sebaceous cyst Vaginal cysts History of hepatitis C Obesity COVID-19 Fibromyalgia Asthma Surgical History H/O arthroscopy of left knee (~01/2024) History of hysterectomy History of lumbar surgery History of carpal tunnel release H/O right knee surgery Family History Father Medical history unknown Mother Asthma Diabetes Hypertension Breast cancer Sister Breast cancer Social History Housing: Apartment Alcohol intake: never Patient Tobacco Use Status: Never used Tobacco Tobacco use type: Cigarette e-Cigarette/Vaping Use: Never Used Second Hand Smoke Exposure: No Advance Directives Date on File: 11/19/21 service: No Current occupational status: retired Cognitive needs: No Hearing needs: No Vision needs: Yes Female Reproductive History Menstrual Age of Menarche: 13 Review of Systems Const Denies weight gain and Denies weight loss ENT Reports no additional complaints, Denies dysphagia and Denies odynophagia Card Reports no additional complaints Resp Reports no additional complaints GI Denies abdominal pain, Denies belching, Denies melena, Denies bloating, Denies change in bowel habits, Denies dysphagia, Denies excessive flatus, Denies dyspepsia, Denies heartburn, Denies diarrhea, Denies loose stools, Denies nausea, Denies odynophagia and Denies vomiting Reports no additional complaints Musc Reports no additional complaints Neuro Reports no additional complaints Psych Reports no additional complaints Endo Reports no additional complaints Physical Exam Vital Signs: Last Vital Signs Pulse 82 09/09/24 15:50 BP 136/60 09/09/24 15:50 Pulse Ox 99 09/09/24 15:50 Oxygen Delivery Method Room Air 09/09/24 15:50 BMI result Body Mass Index 30.3 Const General: no acute distress Nutritional Appearance: obese Orientation/consciousness: patient oriented x3 Resp Effort & Inspection: normal respiratory effort, able to speak in complete sentences, no tracheal deviation and symmetric chest movement Auscultation: clear to auscultation bilaterally Cardio Rate: regular rate GI Inspection: Yes normal to inspection, No distended and Yes obesity Palpation (GI): Soft to palpation, not firm, nontender and No hepatosplenomegaly present Auscultation: normal bowel sounds General: Yes no CVA tenderness Back/Spine/Pelvis Back: no CVA tenderness Skin General skin exam: elasticity normal, turgor normal and dry skin Neuro General: patient oriented x3 Psych Appearance: grossly normal Mental Status: mental status grossly normal Assessment & Plan Assessment & Plan (1) IBS (irritable bowel syndrome): Code(s): K58.9 - Irritable bowel syndrome, unspecified Qualifiers: Irritable bowel syndrome type: with constipation Qualified Code(s): K58.1 - Irritable bowel syndrome with constipation (2) GERD (gastroesophageal reflux disease): Code(s): K21.9 - Gastro-esophageal reflux disease without esophagitis Qualifiers: Esophagitis presence: esophagitis presence not specified Qualified Code(s): K21.9 - Gastro-esophageal reflux disease without esophagitis (3) Chronic idiopathic constipation: Code(s): K59.04 - Chronic idiopathic constipation Plan Patient will continue taking omeprazole daily and Famotidine at bedtime. Patient will continue avoiding dietary triggers and late night snacking. Staying upright for minimum 3 hours after meals discussed with patient. Patient will continue to avoid spicy food. Continue with senna daily. Increase fluid intake and activity to promote better bowel motility. Follow-up in 6 months, sooner on as needed basis. Patient is agreeable to this plan and verbalizes understanding of instructions. She was given the opportunity to ask questions and all questions answered. Thank you for allowing me to participate in her care Medications: New omeprazole 40 mg PO DAILY 90 caps 3RF K21.9 - Gastro-esophageal reflux disease without esophagitis Refilled famotidine 20 mg PO BEDTIME 90 tabs 3RF K21.9 - Gastro-esophageal reflux disease without esophagitis sennosides (Natural Senna Laxative) 17.2 mg (2 x 8.6 mg) PO BEDTIME 180 tabs 3RF constipation K59.00 - Constipation, unspecified Coding Level of Care Code Est Pt Level 3 (98848) Diagnoses Irritable bowel syndrome with constipation K58.1 Irritable bowel syndrome type: with constipation Gastroesophageal reflux disease, unspecified whether esophagitis present K21.9 Esophagitis presence: esophagitis presence not specified Chronic idiopathic constipation K59.04 Time Spent (min) 30 Comment 20 minutes spent with patient and additional 10 minutes spent reviewing her records
[2024-09-09 15:50] VITALS: BP 136/60; PULSE 82; O2SAT 99; BMI 30.3
== END 2024-09-09 16:03 | disposition home or self-care (01) ==
PROVIDERS: PCP Internal Medicine; Visit Provider Nurse Practitioner Family
DX: K58.1 Irritable bowel syndrome with constipation (principal); K21.9 Gastro-esophageal reflux disease without esophagitis; K59.04 Chronic idiopathic constipation
CPT/HCPCS: 99213

== ENCOUNTER → 2024-09-09 15:37 | Outpatient (BNVA) | payer MEDICARE, SELFPAY | PROVIDERS: PCP Internal Medicine; Visit Provider Nurse Practitioner Family | DX: K21.9 Gastro-esophageal reflux disease without esophagitis (principal); K59.04 Chronic idiopathic constipation; K58.1 Irritable bowel syndrome with constipation | CPT/HCPCS: 99212 ==

== ENCOUNTER 2024-09-28 12:29 | Outpatient (REF) | payer MEDICARE, SELFPAY ==
--- NOTE | ~2024-09-28 | MR_ITS ---
EXAMINATION: MR BRAIN WITHOUT THEN WITH IV CONTRAST HISTORY: LT TINNITUS, VERTIGO, HEARING LOSS LT EAR TECHNIQUE: Sagittal T1, and axial T1, FLAIR, gradient echo, and diffusion weighted MR images of the brain were obtained. In addition, high resolution T2-weighted images were obtained through the internal auditory canals. Subsequently, axial and coronal T1-weighted images were obtained through the internal auditory canals before and after the administration of intravenous gadolinium. 7 mL Gadavist was administered. COMPARISON: Comparison is made with the prior examination dated 10/18/2022. FINDINGS: A few scattered punctate periventricular and subcortical white matter hyperintensities are again noted on the FLAIR and T2-weighted images which are nonspecific, but often seen in the setting of small vessel ischemic disease. Pedraza/white differentiation is otherwise normal. There is no mass effect or midline shift. The ventricular system is normal in size and configuration. No intra or extra-axial fluid collections are identified. There are no foci of restricted diffusion. The bilateral 7th and 8th nerve complexes are unremarkable in appearance without evidence of nodularity or abnormal contrast enhancement. There is no CP angle mass. The cochlea and semicircular canals are unremarkable in appearance. No abnormal contrast enhancement is seen in the remainder of the brain. Normal vascular flow voids are noted in the basilar and carotid arteries. The visualized paranasal sinuses are clear. MR/MR head/brain wo/w con IMPRESSION: No acute intracranial abnormality. No evidence of an internal auditory canal or CP angle mass. Electronically signed by: Cosme Ta MD 10/01/2024 08:42 AM EDT
[2024-09-28] MEDS: gadobutroL 7.5 ML VIAL IVPUSH (14:17)
== END 2024-09-28 12:30 | disposition home or self-care (01) ==
LOC: HO.MRI 12:29
PROVIDERS: PCP Internal Medicine; Visit Provider Otolaryngology
DX: H93.12 Tinnitus, left ear (principal); H81.4 Vertigo of central origin; H90.42 Sensorineural hearing loss, unilateral, left ear, with unrestricted hearing on the contralateral side
CPT/HCPCS: 70553; A9585

== ENCOUNTER → 2024-09-28 13:30 | Outpatient (BNV) | payer MEDICARE, SELFPAY | PROVIDERS: PCP Internal Medicine; Visit Provider Radiology Diagnostic Radiology | DX: H93.12 Tinnitus, left ear (principal) | CPT/HCPCS: 70553 ==

== ENCOUNTER 2024-10-11 15:40 | Outpatient (AMB) | payer MEDICARE, SELFPAY ==
[2024-10-11 15:59] VITALS: BP 132/62; PULSE 82; RESP 22; O2SAT 97; BMI 30.3
--- NOTE | 2024-10-11 15:59 | A.OFFPC_ITS ---
Vital Signs 10/11/24 15:59 Height 4 ft 11 in Weight 149 lb 12.8 oz BMI 30.3 BP 132/62 Blood Pressure Location Lt brachial Position Sitting Respiration 22 H Pulse 82 Pulse Source Pulse Oximeter Pulse Oximetry (%) 97 Oxygen Delivery Method Room Air Intake Visit Reasons: office follow up transfer from [facility] Managing Principal Required: No Accompanied by: Self / Same As Patient Allergies oxycodone [Percocet] Allergy (Unknown, Verified 10/11/24 16:13) Rash Medication List - Last Reconciled 10/11/24 by JANEY Kingsley [albuterol sulfate 90 mcg inhalation Q4-6H PRN] cholecalciferol (vitamin D3) 100 mcg (2 x 50 mcg (2,000 unit)) PO DAILY famotidine 20 mg PO BEDTIME gabapentin 600 mg PO ONCE magnesium oxide 400 mg PO DAILY mirabegron ER (Myrbetriq) 25 mg PO DAILY pantoprazole 40 mg PO DAILY Tobacco use date assessed: 10/11/24 Dental Screening Dental Screen Date: 10/11/24 Did you have a dental visit in the last 12 months?: Yes Did you have a dental problem in the last 6 months where you did not have access to dental care?: No Was dental information given to patient?: Patient has dentist HPI office follow up transfer from [facility] Details Patient is a 73-year-old female presenting to transition care from Dr. Espinal who retired Patient reports that she has been seeing Dr. Espinal for 5 years She has past medical history of osteopenia, and D deficiency, overactive bladder, tinnitus of both ears, postmenopausal with atrophic vaginitis, headaches, fibromyalgia, asthma and hep C Patient reports that on 09/18/24, she had an epidermal cyst removed from right cheek/face No major concerns today. Reports that she needs blood work to see how her levels are She denies shortness of breath, chest pain, heart palpitation or dizziness Reports intermittent back pain, but she is feeling okay today [facility] Medical History Cataract Sebaceous cyst Vaginal cysts History of hepatitis C Obesity COVID-19 Fibromyalgia Asthma Surgical History H/O cataract extraction H/O arthroscopy of left knee (~01/2024) History of hysterectomy History of lumbar surgery History of carpal tunnel release H/O right knee surgery Family History Father Medical history unknown Mother Asthma Diabetes Hypertension Breast cancer Sister Breast cancer Social History Housing: Apartment Alcohol intake: never Patient Tobacco Use Status: Never used Tobacco Tobacco use type: Cigarette e-Cigarette/Vaping Use: Never Used Second Hand Smoke Exposure: No Advance Directives Date on File: 11/19/21 service: No Current occupational status: retired Cognitive needs: No Hearing needs: No Vision needs: Yes (Glasses) Female Reproductive History Menstrual Age of Menarche: 13 Questionnaire PHQ-9 Over the last 2 weeks, how often have you been bothered by any of the following problems? 1. Little interest or pleasure in doing things: not at all 2. Feeling down, depressed, or hopeless: not at all 3. Trouble falling or staying asleep, or sleeping too much: nearly every day 4. Feeling tired or having little energy: nearly every day 5. Poor appetite or overeating: not at all 6. Feeling bad about yourself - or that you are a failure or have let yourself or your family down: not at all 7. Trouble concentrating on things, such as reading the newspaper or watching television: not at all 8. Moving or speaking so slowly that other people could have noticed. Or the opposite - being so fidgety or restless that you have been moving around a lot more than usual: not at all 9. Thoughts that you would be better off or of hurting yourself in some way: not at all Total score: 6 Depression Screening Interpretation: Positive Depression Screening Done: Yes 65632 - PHQ-9 Billing: Yes Source: Developed by Drs. Cosme Yang, Violetta Escalante, Cornelio John and colleagues, with an educational ronna from [employer]. Thrive Questionnaire Date Thrive assessed: 10/11/24 I am a: Patient What is your living situation today?: I have a steady place to live Within the past 12 months, did the food you bought not last and you didn't have the money to get more?: Never true Within the past 12 months, did you worry whether your food would run out before you got money to buy more?: Never true Do you have trouble paying for medicines?: No Do you have trouble getting transportation to medical appointments?: No Do you have trouble paying your heating and electricity bill?: No Do you have trouble taking care of your child, family member or friend?: No Do you have trouble with day-to-day activities such as bathing, preparing meals, shopping, managing finances, etc.?: No Are you currently unemployed and looking for a job?: No Are you interested in more education?: No Please select the resources that you would like help with: None Currently or been in a relationship where the following occur: No concerns reported THRIVE Score: 0 AUDIT C Alcohol Use Questionnaire (AUDIT-C) 1. How often do you have a drink containing alcohol?: Never 3. How often do you have six or more drinks on one occasion?: Never Total Score: 0 Score Reviewed/Action Taken: Yes RABIA-7 AMB Questionnaire RABIA-7 Date RABIA - 7 assessed: 10/11/24 Feeling nervous, anxious, or on edge: 2 = More than half the days Not being able to stop or control worryin = More than half the days Worrying too much about different things: 2 = More than half the days Trouble relaxin = More than half the days Being so restless that it is hard to sit still: 0 = Not at all Becoming easily annoyed or irritable: 0 = Not at all Feeling afraid as if something awful might happen: 0 = Not at all Total RABAI-7 score (0-4 normal; 5-9 mild; 10-14 moderate; 15-21 severe): 8 Source: Developed by Drs. Cosme Yang, Violetta Escalante, Cornelio John and colleagues, with an educational ronna from [employer]. RABIA-7 Assessment Billing RABIA-7 Assessment Tool: RABIA-7 Assessment 39819 Review of Systems Const Reports headache(s) (on and off) Eyes Denies loss of vision ENT Denies vertigo, Denies dizziness, Reports headache(s) (on and off) and Denies sore throat Card Denies chest pain, Denies leg edema and Denies lightheadedness Resp Denies cough, Denies hemoptysis and Denies wheezing GI Denies abdominal pain, Denies melena, Reports constipation (on and off), Reports heartburn (depending on what she eats), Denies diarrhea and Denies vomiting Denies urinary frequency, Denies dysuria and Denies urinary urgency Musc Reports back pain (on and off), Denies arthralgias, Denies joint swelling, Denies numbness, Denies radiating pain into limb and Denies tingling Neuro Denies Abnormal speech present, Denies behavioral changes, Denies vertigo, Denies dizziness, Reports headache(s) (on and off), Denies loss of vision, Denies memory loss, Denies numbness and Denies tingling Psych Denies anxiety, Denies behavioral changes, Denies depression, Denies memory loss and Denies panic attacks Siddharth/Lymph Denies easy bleeding and Denies easy bruising Aller/Immun Denies wheezing Physical exam (Primary Care) Vital Signs: Last Vital Signs Pulse 82 10/11/24 15:59 Resp 22 H 10/11/24 15:59 BP 132/62 10/11/24 15:59 Pulse Ox 97 10/11/24 15:59 Oxygen Delivery Method Room Air 10/11/24 15:59 BMI result Body Mass Index 30.3 Tobacco/Smoking Status: Tobacco use Status Tobacco use date assessed 10/11/24 10/11/24 16:08 Patient Tobacco Use Status Never used Tobacco 10/11/24 16:08 Tobacco use type Cigarette 10/11/24 16:08 e-Cigarette/Vaping Use Never Used 10/11/24 16:08 PHQ-9: PHQ-9 Score PHQ-9: Total score 6 10/11/24 16:14 Depression Screening Interpretation: Positive Thrive Assessment: Date of Thrive Assessment Date Thrive assessed 10/11/24 10/11/24 16:08 Currently or been in a relationship where the following occur: No concerns reported Const General: healthy appearing, no acute distress, alert and awake Nutritional Appearance: well nourished Orientation/consciousness: oriented to person, oriented to place and oriented to time HENMT Ears: external ears normal General nose exam: Normal external nose present Eyes Conjunctivae: conjunctivae normal Sclerae: sclerae normal Pupils: Equal, round and reactive pupils present Neck Neck: Yes no lymphadenopathy and Yes no JVD Thyroid: Thyroid normal Carotids: no bruits Resp Effort & Inspection: normal respiratory effort and not tachypneic Auscultation: no crackles, no rales, no rhonchi and no wheezes Cardio Rate: regular rate Rhythm: regular rhythm Heart sounds: no murmurs and normal S1 and S2 GI Palpation (GI): Soft to palpation and nontender Auscultation: normal bowel sounds General: Yes no CVA tenderness Back/Spine/Pelvis Back: no CVA tenderness Thoracic/Lumbar Spine: No thoracic spinal tenderness and No lumbar spinal tenderness Skin General skin exam: no rashes or lesions noted, dry skin and scars (right side of face s/p epidermal cyst removal) Neuro General: oriented to person, oriented to place and oriented to time Cranial nerves: Yes Equal, round and reactive pupils present Speech: No Abnormal speech present Gait exam (Neuro): Normal gait present Motor exam (neuro): no tremor noted Extrem Right upper extremity: full ROM Left upper extremity: full ROM Right lower extremity: full ROM; no edema Left lower extremity: full ROM; no edema Psych Mental Status: mental status grossly normal Speech and movement: Normal speech and movement present Affect: normal affect Attitude: cooperative Thought process: Normal thought process present Coding Level of Care Code Est Pt Level 4 (52169) Diagnoses Osteopenia of neck of femur, unspecified laterality M85.859 Osteopenia location: femoral neck Laterality: unspecified laterality Vitamin D deficiency disease E55.9 OAB (overactive bladder) N32.81 Tension-type headache, not intractable, unspecified chronicity pattern G44.209 Headache type: tension-type Headache chronicity pattern: unspecified pattern Intractability: not intractable Lumbar pain M54.50 Class 1 obesity with body mass index (BMI) of 30.0 to 30.9 in adult, unspecified obesity type, unspecified whether serious comorbidity present E66.811; Z68.30 Obesity type: unspecified obesity type Obesity classification: adult class 1 (BMI 30 - 34.9) Serious obesity comorbidity presence: unspecified whether serious comorbidity present Body mass index: BMI 30.0-30.9 Fibromyalgia M79.7 Asthma, unspecified asthma severity, unspecified whether complicated, unspecified whether persistent J45.909 Asthma severity: unspecified severity Asthma persistence: unspecified Asthma complication type: unspecified Additional Codes RABIA-7 Assessment Billing - RABIA-7 Assessment Tool: RABIA-7 Assessment 16079 ([id number]) PHQ-9 - 43450 - PHQ-9 Billing: Yes ([id number]) Time Spent (min) 39 Assessment & Plan Assessment & Plan (1) Osteopenia: Code(s): M85.80 - Other specified disorders of bone density and structure, unspecified site Category: Medical Qualifiers: Osteopenia location: femoral neck Laterality: unspecified laterality Qualified Code(s): M85.859 - Other specified disorders of bone density and structure, unspecified thigh Plan: The DEXA scan on 11/06/22 showed -1.4 in femoral neck. This test was ordered by [employer], with plans to repeat in 2024. Continue vitamin-D3 100 mcg daily (2) Vitamin D deficiency disease: Code(s): E55.9 - Vitamin D deficiency, unspecified Category: Medical Plan: Continue cholecalciferol 100 mcg daily (3) OAB (overactive bladder): Code(s): N32.81 - Overactive bladder Category: Medical Plan: The patient was started on Gemtesa in combination with Botox injection by Dr. Waters (urology). The patient insurance denies Gemtesa and this was switched to Myrbetriq 25 mg daily. Patient is denying urinary symptoms at this time (4) Headache: Code(s): R51.9 - Headache, unspecified Category: Medical Qualifiers: Headache type: tension-type Headache chronicity pattern: unspecified pattern Intractability: not intractable Qualified Code(s): G44.209 - Tension- type headache, unspecified, not intractable Plan: Patient was seen by Neurology who recommended amitriptyline 25 mg at bedtime in 2020. It is unclear if the patient ever restarted this medication. Continue magnesium oxide 400 mg daily. Maintain adequate fluid hydration (5) Lumbar pain: Code(s): M54.50 - Low back pain, unspecified Category: Medical Plan: Patient reports on and off back pain. She has a history of lumbar surgery. Lumbar x-ray done in 2021 shows mild degenerative disc changes L2-L3, L3-L4 disc levels with ventral spondylosis. It shows device stabilizing spinous processes at the L4-L5 disc level. Reinforced weight and activity restrictions. Continue gabapentin 600 mg daily . (6) Obesity: Code(s): E66.9 - Obesity, unspecified Category: Medical Qualifiers: Obesity type: unspecified obesity type Obesity classification: adult class 1 (BMI 30 - 34.9) Serious obesity comorbidity presence: unspecified whether serious comorbidity present Body mass index: BMI 30.0-30.9 Qualified Code(s): E66.811 - Obesity, class 1; Z68.30 - Body mass index [BMI] 30.0-30.9, adult Plan: Reinforced low-cholesterol diet and activity as tolerated (7) Fibromyalgia: Code(s): M79.7 - Fibromyalgia Category: Medical Plan: Encouraged activity as tolerated. Continue gabapentin 600 mg daily (8) Asthma: Code(s): J45.909 - Unspecified asthma, uncomplicated Category: Medical Qualifiers: Asthma severity: unspecified severity Asthma persistence: unspecified Asthma complication type: unspecified Qualified Code(s): J45.909 - Unspecified asthma, uncomplicated Plan: Patient denies any recent symptoms. Continue albuterol sulfate 90 mcg q.4-6 hours p.r.n. we will continue to monitor Orders: Orders Complete Blood Count Auto Diff 10/11/24 E55.9 - Vitamin D deficiency, unspecified, M79.7 - Fibromyalgia, J45.909 - Unspecified asthma, uncomplicated, Z78.0 - Asymptomatic menopausal state, M85.80 - Other specified disorders of bone density and structure, unspecified site, E78.5 - Hyperlipidemia, unspecified, Z00.00 - Encounter for general adult medical examination without abnormal findings Comprehensive [place]. Panel Fast 10/11/24 E55.9 - Vitamin D deficiency, unspecified, M79.7 - Fibromyalgia, J45.909 - Unspecified asthma, uncomplicated, Z78.0 - Asymptomatic menopausal state, M85.80 - Other specified disorders of bone density and structure, unspecified site, E78.5 - Hyperlipidemia, unspecified, Z00.00 - Encounter for general adult medical examination without abnormal findings Vitamin D 25-OH Total 10/11/24 E55.9 - Vitamin D deficiency, unspecified, M79.7 - Fibromyalgia, J45.909 - Unspecified asthma, uncomplicated, Z78.0 - Asymptomatic menopausal state, M85.80 - Other specified disorders of bone density and structure, unspecified site, E78.5 - Hyperlipidemia, unspecified, Z00.00 - Encounter for general adult medical examination without abnormal findings TSH reflex Free T4 10/11/24 E55.9 - Vitamin D deficiency, unspecified, M79.7 - Fibromyalgia, J45.909 - Unspecified asthma, uncomplicated, Z78.0 - Asymptomatic menopausal state, M85.80 - Other specified disorders of bone density and structure, unspecified site, E78.5 - Hyperlipidemia, unspecified, Z00.00 - E ncounter for general adult medical examination without abnormal findings Lipid Panel 10/11/24 E55.9 - Vitamin D deficiency, unspecified, M79.7 - Fibromyalgia, J45.909 - Unspecified asthma, uncomplicated, Z78.0 - Asymptomatic menopausal state, M85.80 - Other specified disorders of bone density and structure, unspecified site, E78.5 - Hyperlipidemia, unspecified, Z00.00 - Encounter for general adult medical examination without abnormal findings UA CC w/rflx Micro + Cult 10/11/24 E55.9 - Vitamin D deficiency, unspecified, M79.7 - Fibromyalgia, J45.909 - Unspecified asthma, uncomplicated, Z78.0 - Asymptomatic menopausal state, M85.80 - Other specified disorders of bone density and structure, unspecified site, E78.5 - Hyperlipidemia, unspecified, Z00.00 - Encounter for general adult medical examination without abnormal findings
--- OUTSIDE RECORDS SUMMARY | 2024-10-11 16:48 | XMS_ITS | Clinical Summary ---
Author Organization [address] [facility] Address [address] [place] [address] Phone Care Team Providers Care First Officer Name Role Phone Donell Donis MD Primary Care Provider [phone] Allergies Active Allergy Reactions Criticality Noted Date Comments Oxycodone-Acetaminophen Hives 10/04/2024 Medications cefuroxime (CEFTIN) 500 mg tablet take 1 tablet orally 2 times a day for 10 days 4 Active Vitamin D3 50 mcg (2,000 unit) capsule take 2 capsules orally daily 4 Active famotidine (PEPCID) 20 mg tablet Take 1 tablet (20 mg total) by mouth at bedtime. 5 Active gabapentin (NEURONTIN) 300 mg capsule TAKE 2 TABLETS BY MOUTH BEFORE BED. 5 Active HYDROcodone-aurora taminophen (NORCO) 5-325 mg per tablet TAKE 1 TABLET BY MOUTH EVERY 6 HOURS NEEDED FOR 4 DAYS 4 Active ketorolac (ACULAR) 0.5 % ophthalmic solution INSTILL 1 DROP INTO LEFT EYE THREE TIMES A DAY START 2 DAYS BEFORE SURGERY 4 Active meloxicam (MOBIC) 15 mg tablet TAKE 1 TABLET EVERY DAY BY ORAL ROUTE AFTER MEAL(S). 4 Active Myrbetriq 25 mg 24 hr tablet Take 1 tablet (25 mg total) by mouth 1 (one) time each day. 5 Active nitrofurantoin, macrocrystal-mo nohydrate, (MACROBID) 100 mg capsule TAKE 1 CAPSULE BY MOUTH TWICE A DAY WITH FOOD FOR 7 DAYS 4 Active omeprazole (PriLOSEC) [address] capsule Take 1 capsule (40 mg total) by mouth 1 (one) time each day. 5 Active pantoprazole (PROTONIX) 40 mg EC tablet TAKE 1 TABLET BY MOUTH HALF AN HOUR BEFORE BREAKFAST 5 Active predniSONE (DELTASONE) 20 mg tablet Take 2 tablets (40 mg total) by mouth 1 (one) time each day. for 5 days 4 Active senna 8.6 mg tablet TAKE 2 TABLETS BY MOUTH AT BEDTIME FOR CONSTIPATION 5 Active sucralfate (CARAFATE) 1 gram tablet TAKE 1 TABLET (1 GM) ORALLY 2 TIMES A DAY 4 Active sulfamethoxazol e-trimethoprim (BACTRIM DS,SEPTRA DS) 800-160 mg per tablet Take 1 tablet by mouth 2 (two) times a day. for 4 days 4 Active traMADoL (ULTRAM) 50 mg tablet Take 1 tablet (50 mg total) by mouth every 6 (six) hours if needed. for pain for 3 days Max Daily Amount: 200 mg 4 Active Gemtesa 75 mg tablet tablet Take 1 tablet (75 mg total) by mouth 1 (one) time each day. 5 Active Active Problems Problem Noted Date Diagnosed Date Epidermal cyst of face 10/04/2024 Encounters Date Type Department Care Team Description 10/04/2024 11:30 AM EDT Consult Plastic & Reconstructive Surgery [facility] [address] [facility] [address] [place] [address] Santiago Wheeler PA Epidermal cyst of face (Primary Dx) 10/04/2024 Telephone General Surgery [facility] [address] [facility] [address] [place] [address] Rob Griffin DO prior auth (10/04/2024 no auth required ) from Last 3 Months Social History Tobacco Use Types Packs/Day Years Used Date Smoking Tobacco: Never Smokeless Tobacco: Never Tobacco Cessation:Counseling Given: Not Answered Alcohol Use Standard Drinks/Week Comments Never 0 (1 standard drink = 0.6 oz pur e alcohol) Comments Unknown Sex and Gender Information Value Date Recorded Sex Assigned at Not on file Legal Sex Female 8:58 AM EST Gender Identity Not on file Sexual Orientation Not on file Obstetrics History Last Filed Vital Signs Vital Sign Reading Time Taken Comments Blood Pressure 119/75 10/04/2024 11:17 AM EDT Pulse 83 10/04/2024 11:17 AM EDT Temperature - - Respiratory Rate - - Oxygen Saturation - - Inhaled Oxygen Concentration - - Weight 68 kg (150 lb) 10/04/2024 11:17 AM EDT Height 148.6 cm (4' 10.5 ) 10/04/2024 11:17 AM E DT Body Mass Index 30.82 10/04/2024 11:17 AM EDT Plan of Treatment Upcoming Encounters Date Type Department Care Team (Latest Contact Info) Description 10/28/2024 9:15 AM EDT Hospital Encounter [facility] [place] [address] [place] [address] Rob Griffin DO [address] [address] 10/28/2024 9:15 AM EDT - 10/28/2024 10:45 AM EDT Surgery [facility] [place] [address] [place] [address] Rob Grififn DO [address] [address] EXCISION LESION *right cheek *NO FROZEN [34198 (CPT??)] 11/04/2024 8:00 AM EDT Office Visit Plastic & Reconstructive Surgery - [place] [address] [address] Santiago Wheeler PA [address] [address] Scheduled Procedures Name Priority Associated Diagnoses Date/Ti me EXCISION LESION EAR Epidermal cyst of face 10/28/2024 9:15 AM EDT REPAIR LACERATION Epidermal cyst of face 10/28/2024 9:15 AM EDT Health Maintenance Due Date Last Done Comments Breast Cancer Screening 1950 DTaP,Tdap,and Td Vaccines (1 - Tdap) 12/10/1971 Pneumococcal Vaccine: 50+ Years (1 of 1 - PCV) 2002 COVID-19 Vaccine ( season) 2024 07/18/2022, 11/18/2021, 06/15/2021, Additional history exists Colorectal Cancer Screening: Colonoscopy 09/12/2024 Depression Screening 09/12/2024 Falls Risk Assessment 09/12/2024 Hepatitis C Screening 09/12/2024 Medicare Annual Wellness Visit 09/12/2024 Osteoporosis Screening (Bone Density Screening) 09/12/2024 Social Influencers of Health Screening 09/12/2024 Influenza Vaccine (Season Ended) 2025 03/14/2019, 03/01/2018 Zoster Vaccines Completed 03/17/2023, 01/08/2023 RSV Immunization Adult Patients Completed 04/30/2024 HIB Vaccines Aged Out No longer eligi ble based on patient's age to complete this topic HPV Vaccines Aged Out No longer eligi ble based on patient's age to complete this topic Hepatitis A Vaccines Aged Out No long er eligible based on patient's age to complete this topic Hepatitis B Vaccines Aged Out No long er eligible based on patient's age to complete this topic IPV Vaccines Aged Out No longer eligi ble based on patient's age to complete this topic MMR Vaccines Aged Out No longer eligi ble based on patient's age to complete this topic Meningococcal ACWY Vaccine Aged Out N o longer eligible based on patient's age to complete this topic Meningococcal B Vacine Aged Out No lo nger eligible based on patient's age to complete this topic RSV Immunization Patients Under 20 months Aged Out No longer eligible based on patient's age to complete this topic Varicella Vaccines Aged Out No longer eligible based on patient's age to complete this topic Insurance MEDICARE [facility] Care Teams First Officer Relationship Specialty Start Date End Date Donell Donis MD [address] [place] [address] Dr [place] PCP - General Police Pilot 08/01/16
--- OUTSIDE RECORDS SUMMARY | 2024-10-11 16:48 | XMS_ITS | Encounter Summary ---
Author Organization [facility] Address [address] [place] [address] Care Team Providers Care Solutions Development Analyst Name Role Phone Donell Donis MD Primary Care Provider [phone] Reason for Visit * Reason Onset Date Comments prior auth 10/04/2024 10/04/2024 no au th required Encounter Details Date Type Department Care Team (Late st Contact Info) Description 10/04/2024 Telephone General Surgery - [place] [address] [facility] [address] [place] [address] Rob Griffin, DO [address] [place] [address] prior auth (10/04/2024 no auth required ) Social History Tobacco Use Types Packs/Day Years Used Date Smoking Tobacco: Never Smokeless Tobacco: Never Alcohol Use Standard Drinks/Week Comments Never 0 (1 standard drink = 0.6 oz pur e alcohol) Comments Unknown Sex and Gender Information Value Date Recorded Sex Assigned at Not on file Legal Sex Female 8:58 AM EST Gender Identity Not on file Sexual Orientation Not on file documented as of this encounter Progress Notes * Viola Marrero - 10/04/2024 3:10 PM EDT 10/10/24 mailed surgery letter to pt 10/04/2024 Medicare/Medex no auth required for CPT 95751 & 21598 documented in this encounter Plan of Treatment Upcoming Encounters Date Type Department Care Team (Latest Contact Info) Description 10/28/2024 9:15 AM EDT Hospital Encounter [facility] Main OR [address] [place] [address] Rob Griffin, DO [address] [address] 10/28/2024 9:15 AM EDT - 10/28/2024 10:45 AM EDT Surgery [facility] Main [place] [address] [place] [address] Rob Griffin, DO [address] [address] EXCISION LESION *right cheek *NO FROZEN [94902 (CPT??)] 11/04/2024 8:00 AM EDT Office Visit Plastic & Reconstructive Surgery [facility] [address] [address] Santiago Wheeler PA [address] [address] Scheduled Procedures Name Priority Associated Diagnoses Date/Ti me EXCISION LESION EAR Epidermal cyst of face 10/28/2024 9:15 AM EDT REPAIR LACERATION Epidermal cyst of face 10/28/2024 9:15 AM EDT documented as of this encounter Visit Diagnoses Not on filedocumented in this encounter Care Teams Solutions Development Analyst Relationship Specialty Start Date End Date Donell Donis MD [address] [place] [address] Dr Sharma [address] [place], [place] PCP - General Feather Trimmer 08/01/16 documented as of this encounter
--- OUTSIDE RECORDS SUMMARY | 2024-10-11 16:48 | XMS_ITS | Encounter Summary ---
Author Organization [facility] Address [address] [place] [address] Care Team Providers Care Weather Strip Mechanic Name Role Phone Donell Donis MD Primary Care Provider [phone] Reason for Visit * Reason Comments Consult ENERGY AUDITOR- right cheek cyst Encounter Details Date Type Department Care Team (Late st Contact Info) Description 10/04/2024 11:30 AM EDT Consult Plastic & Reconstructive Surgery - [place] [address] [place] [address] Santiago Wheeler PA [address] [place] [address] Epidermal cyst of face (Primary Dx) Social History Tobacco Use Types Packs/Day Years [...] on file documented as of this encounter Last Filed Vital Signs Vital Sign Reading [...] Mass Index 30.82 10/04/2024 11:17 AM EDT documented in this encounter Progress Notes * DEBORA Paulson - 10/04/2024 11:30 AM EDT [facility] Information about your minor procedure: You will be having a lesion removed by Dr. Griffin, a Board Certified Plastic and Reconstructive Surgeon. We will call you to schedule this procedure. The Procedure will take place at [facility], on the third floor in the surgical suite. You may park in the front of the hospital and enter the main entrance, take the elevators to the third floorand the manager leasing desk will be located on your left. The procedure will take approximately 1 to 2 hours. This procedure will be done while you are awake. You will receive local anesthetic in the area of the lesion. You will receive this numbing medication in the form of an injection. You will not receive any medication that would make you drowsy or alter your mental state. You willbe safe to drive yourself to and from the procedure. It is recommended to eat breakfast/lunch prior to the procedure. If you take aspirin, stop taking it 5 days prior to your procedure date. If you take any other type of blood thinners, hold your medication as instructed by our office. You may take all of your other daily medications on the day of the procedure. After the procedure, you may have some redness, swelling, and possibly some bruising surrounding the incision site. You may also have some bleeding from the incision sites. This is normal and expected. Treat this bleeding as if you would any cut. Apply mild pressure and a dressing to absorb the bleeding. Call the office if you have excessive bleeding that is not relieved by pressure. You may take Tylenol/Ibuprofen for any post-operative pain you may have, unless instructed otherwise by a health care provider. Follow up in our office about 1 week after your procedure as scheduled. Call our office with any questions or concerns you may have. [phone] * DEBORA Paulson - 10/04/2024 11:30 AM EDT Images from the original note were not included. MDCYSTCONSULT PATIENT: Shivani Hernandez ENCOUNTER: 10/04/2024 EMRN: [id number] : 1950 CHIEF COMPLAINT: Consult (ENERGY AUDITOR- right cheek cyst) Accompanied by supportive daughter who is translating. HPI: Shivani Hernandez is a 73 y.o. female presenting with a 6-month history of a painful mass in right cheek. This mass has never been drained and never drained on its own. It waxes and wanes in size. It is painful to touch. Patient is requesting resection, and understands that there will be a scar. Patient denies any personal or family history of any melanoma or any other types of skin cancers. Patient does not smoke, is not a diabetic, and does not take blood thinners. Referred by dermatology for resection. ROS: CONSTITUTIONAL: no malaise, no significant weight changes, no excessive fatigue, no fevers or chills EYES: no visual complaints ENT: no changes in hearing vision nasal problems or hoarseness CARDIOVASCULAR:no chest pain and leg swelling or palpitations RESPIRATORY: no chronic cough wheezing or shortness of breath GI: no abdominal pain nausea vomiting or diarrhea PSYCHIATRIC: no change from baseline ENDOCRINE: no heat or cold intolerance HEMATOLOGIC: no excessive bleeding INTEGUMENTARY: As noted in HPI HPI I have reviewed the following sections of the chart: Medical history PHYSICAL EXAM: Visit Vitals BP 119/75 Pulse 83 Ht 1.486 m (58.5 ) Wt 68 kg (150 lb) BMI 30.82 kg/m?? Smoking Status Never BSA 1.62 m?? Skin: 5 x 5 mm Firm, tender, mobile mass Overlying skin slightly pigmented No central pore No facial scars in the area of concern APPEARANCE: Normal EYES: Pupils, conjunctiva and sclera normal. MOUTH/THROAT: normal without lesions NECK: Neck supple NEURO: Awake, alert and oriented x 3; cranial nerves II-XII grossly intact PSYCHIATRIC: Mood and affect are normal SKIN: as noted above LABS / PATHOLOGY: Dermatology note reviewed. IMAGING: IMPRESSION: 1. Epidermal cyst of face PLAN: 1. Shivani Hernandez is a 73 y.o. female presenting with a 6-month history of a painful mass in Right cheek discussed the pathophysiology of epidermal inclusion cysts. Discussion of risks and benefits including recurrence, location of scar, poor wound healing and infection were discussed with the patient. After hearing these risks and benefits, she would like to proceed with surgical resection. We will proceed. Will discuss with Dr. Griffin. documented in this encounter Plan of Treatment Upcoming Encounters Date Type Department Care Team (Latest Contact Info) Description 10/28/2024 9:15 AM EDT Hospital Encounter [facility] Main OR [address] [place] [phone] Rob Griffin, DO [address] [address] 10/28/2024 9:15 AM EDT - 10/28/2024 10:45 AM EDT Surgery [facility] Main [place] [address] [place] [phone] Rob Griffin, DO [address] [address] EXCISION LESION *right cheek *NO FROZEN [47466 (CPT??)] 11/04/2024 8:00 AM EDT Office Visit Plastic & Reconstructive Surgery - [place] [address] [address] Santiago Wheeler PA [address] [address] Scheduled Procedures Name Priority Associated Diagnoses Date/Ti me EXCISION LESION EAR Epidermal cyst of face 10/28/2024 9:15 AM EDT REPAIR LACERATION Epidermal cyst of face 10/28/2024 9:15 AM EDT documented as of this encounter Visit Diagnoses Diagnosis Epidermal cyst of face- Primary Epidermal cyst of face documented in this encounter Historical Medications * This list may reflect changes made after this encounter. Gemtesa 75 mg tablet tablet Take 1 tablet (75 mg total) by mouth 1 (one) time each day. 07/20/2024 traMADoL (ULTRAM) 50 mg tablet Take 1 tablet (50 mg total) by mouth every 6 (six) hours if needed. for pain for 3 days Max Daily Amount: 200 mg 10/30/2023 sulfamethoxazole -trimethoprim (BACTRIM DS,SEPTRA DS) 800-160 mg per tablet Take 1 tablet by mouth 2 (two) times a day. for 4 days 11/21/2023 sucralfate (CARAFATE) 1 gram tablet TAKE 1 TABLET (1 GM) ORALLY 2 TIMES A DAY 02/01/2024 senna 8.6 mg tablet TAKE 2 TABLETS BY MOUTH AT BEDTIME FOR CONSTIPATION 09/09/2024 predniSONE (DELTASONE) 20 mg tablet Take 2 tablets (40 mg total) by mouth 1 (one) time each day. for 5 days 10/30/2023 pantoprazole (PROTONIX) 40 mg EC tablet TAKE 1 TABLET BY MOUTH HALF AN HOUR BEFORE BREAKFAST 09/15/2024 omeprazole (PriLOSEC) [address] capsule Take 1 capsule (40 mg total) by mouth 1 (one) time each day. 07/26/2024 nitrofurantoin, macrocrystal-mon ohydrate, (MACROBID) 100 mg capsule TAKE 1 CAPSULE BY MOUTH TWICE A DAY WITH FOOD FOR 7 DAYS 01/24/2024 Myrbetriq 25 mg 24 hr tablet Take 1 tablet (25 mg total) by mouth 1 (one) time each day. 09/27/2024 meloxicam (MOBIC) 15 mg tablet TAKE 1 TABLET EVERY DAY BY ORAL ROUTE AFTER MEAL(S). 12/29/2023 ketorolac (ACULAR) 0.5 % ophthalmic solution INSTILL 1 DROP INTO LEFT EYE THREE TIMES A DAY START 2 DAYS BEFORE SURGERY 06/07/2024 HYDROcodone-acet aminophen (NORCO) 5-325 mg per tablet TAKE 1 TABLET BY MOUTH EVERY 6 HOURS NEEDED FOR 4 DAYS 01/26/2024 gabapentin (NEURONTIN) 300 mg capsule TAKE 2 TABLETS BY MOUTH BEFORE BED. 09/04/2024 famotidine (PEPCID) 20 mg tablet Take 1 tablet (20 mg total) by mouth at bedtime. 09/09/2024 Vitamin D3 50 mcg (2,000 unit) capsule take 2 capsules orally daily 04/17/2024 cefuroxime (CEFTIN) 500 mg tablet take 1 tablet orally 2 times a day for 10 days 02/28/2024 added in this encounter Orders Case Request Count Last Ordered Date First Orde red Date CASE REQUEST OPERATING ROOM 1 10/04/2024 documented in this encounter Care Teams Weather Strip Mechanic Relationship Specialty Start Date End Date Donell Donis MD [address] [place] [address] Dr Ivet [place] PCP - General Research Hydraulic Engineer 08/01/16 documented as of this encounter
== END 2024-10-11 16:37 | disposition home or self-care (01) ==
LOC: HO.HMCH 15:41
PROVIDERS: PCP Internal Medicine
DX: M85.859 Other specified disorders of bone density and structure, unspecified thigh (principal); E55.9 Vitamin D deficiency, unspecified; N32.81 Overactive bladder; G44.209 Tension-type headache, unspecified, not intractable; M54.50 Low back pain, unspecified; E66.811 Obesity, class 1; Z68.30 Body mass index [BMI] 30.0-30.9, adult; M79.7 Fibromyalgia; J45.909 Unspecified asthma, uncomplicated

== ENCOUNTER → 2024-10-11 15:40 | Outpatient (BNVA) | payer MEDICARE, SELFPAY | PROVIDERS: PCP Internal Medicine | DX: E55.9 Vitamin D deficiency, unspecified (principal); N32.81 Overactive bladder; M79.7 Fibromyalgia; J45.909 Unspecified asthma, uncomplicated; M85.859 Other specified disorders of bone density and structure, unspecified thigh; G44.209 Tension-type headache, unspecified, not intractable; M54.50 Low back pain, unspecified; E66.811 Obesity, class 1; Z68.30 Body mass index [BMI] 30.0-30.9, adult; Z78.0 Asymptomatic menopausal state | CPT/HCPCS: 96127; 99212 ==

== ENCOUNTER 2024-11-09 08:44 | Outpatient (REF) | payer MEDICARE, SELFPAY ==
--- NOTE | ~2024-11-09 | MR_ITS ---
EXAMINATION: MR CERVICAL SPINE WITHOUT CONTRAST CLINICAL INFORMATION: Neck pain with numbness. COMPARISON: None available. TECHNIQUE: MRI of the cervical spine was obtained using routine sequences without contrast. FINDINGS: Craniocervical junction is intact. No bone marrow STIR signal abnormality. Multilevel disc desiccation and marginal osteophyte formation more pronounced at C4-5 and to a lesser extent C6-7 levels. Mild reverse curvature apex at C4-5. 1 mm anterolisthesis C7-T1 and C6-7 on a degenerative basis. C2-3: C3-4: Broad-based disc osteophyte complex formation. No cord compression. No neuroforamina stenosis. No cord signal abnormality. C4-5: Broad-based disc osteophyte complex formation resulting in flattening the cervical spinal cord and left dorsal hyperintense T2 cord signal. There is central spinal canal stenosis. Bilateral neuroforamina stenosis on a degenerative basis. C5-6: Left-sided disc osteophyte complex formation. No cord compression. No cord signal abnormality. No neuroforamina stenosis. C6-7: No cord compression. No disc herniation. No neuroforamina stenosis. No cord signal abnormality. C7-T1: No disc herniation. No neuroforamina stenosis. No cord signal abnormality. No prevertebral compartment hematoma, mass or fluid collection. Flow-void signal within the main vessels is normal. Codominant vertebral arteries. Fatty signal in the carotic glands, bilaterally. MR/MR cervical spine wo con IMPRESSION: Multilevel cervical spondylosis more pronounced at C4-5 resulting in cord compression and likely myelopathy and bilateral neuroforamina stenosis. Electronically signed by: Martin Figueroa MD 11/11/2024 08:19 AM EDT
--- OUTSIDE RECORDS SUMMARY | 2024-11-09 08:46 | XMS_ITS | Clinical Summary ---
Author Organization 175 [facility] Address [address] [place] [address] Phone Care Team Providers Care Director Biology Name Role Phone Donell Donis MD Primary Care Provider [phone] Allergies Active Allergy Reactions Criticality Noted Date [...] Encounters Date Type Department Care Team Description 11/04/2024 8:00 AM EDT Office Visit Plastic & Reconstructive Surgery [facility] [address] [address] Santiago Wheeler PA Aftercare following surgery of the skin or subcutaneous tissue (Primary Dx) 10/28/2024 9:15 AM EDT - 10/28/2024 10:45 AM EDT Surgery [facility] OR [address] [place] [phone] Rob Griffin DO EXCISION LESION *right cheek *NO FROZEN [90078 (CPT??)] 10/28/2024 8:27 AM EDT - 10/28/2024 9:43 AM EDT Hospital Encounter [facility] OR [address] [place] [address] Rob Griffin DO Epidermal cyst of face Discharge Disposition: Home or Self Care 10/04/2024 11:30 AM EDT Consult Plastic & Reconstructive Surgery [facility] 300 [facility] [address] [place] [address] Santiago Wheeler PA Epidermal cyst of face (Primary Dx) 10/04/2024 Telephone General Surgery [facility] 175 [facility] [address] [place] [address] Rob Griffin DO prior auth [...] Information Value Date Recorded Sex Assigned at Female 10/28/2024 8:20 AM EDT Legal Sex Female 8:58 AM EST Gender Identity Female 10/28/2024 8:20 AM EDT Sexual Orientation Straight 10/28/2024 8: 20 AM EDT Obstetrics History Last Filed Vital Signs Vital Sign Reading Time Taken Comments Blood Pressure 130/85 10/28/2024 9:40 AM EDT Pulse 86 10/28/2024 9:40 AM EDT Temperature 35.8 ??C (96.5 ??F) 10/28/2024 9:40 AM ED T Respiratory Rate 18 10/28/2024 9:40 AM EDT Oxygen Saturation 95% 10/28/2024 9:40 AM EDT Inhaled Oxygen Concentration - - Weight 68 kg (150 lb) 10/04/2024 11:17 AM EDT Height 148.6 cm (4' 10.5 ) 10/04/2024 11:17 AM E DT Body Mass Index 30.82 10/04/2024 11:17 AM EDT Plan of Treatment Health Maintenance Due Date Last Done Comments [...] age to complete this topic Meningococcal B Vaccine Aged Out No l onger eligible based on patient's age to complete this topic RSV Immunization Patients Under 20 months Aged Out No longer eligible based on patient's age to complete this topic Varicella Vaccines Aged Out No longer eligible based on patient's age to complete this topic Procedures Procedure Name Priority Date/Time Associated Diagnosis Comments TISSUE EXAM Routine 10/28/2024 9:36 AM EDT Epidermal cyst of face OR EXCISION BENIGN LESION FACE/EARS/EYELIDS /NOSE/LIPS/MUC MEMB 2.1 - 3.0 CM 10/28/2024 9:22 AM EDT Epidermal cyst of face Case Notes NO frozen Special Needs Minor, no frozen 75 MINUTES 15 MINUTES CLEAN from Last 3 Months Results * Tissue exam (10/28/2024 9:36 AM EDT) Final Diagnosis Cheek, right-excision: -EPIDERMAL INCLUSION CYST 10/29/2024 2:12 PM EDT [facility] Gross Description A. Cheek, mass right ink at 12 o clock: Labeled mass right cheek . Received in formalin is a 0.8 x 0.45 x 0.2 cm mejia skin ellipse and subcutis with ink present at one tip 12 o'clock . The 12-3-6 o'clock aspect is inked blue, the 6-9-12 o'clock aspect is inked black and the epidermis at 12 o'clock is inked green. The specimen is serially sectioned sequentially from 12-6 o'clock. A mass is not identified. The specimen is submitted in entirety in two cassettes. 1-12 and 6 o'clock en face tips with green ink at 12 o'clock, two pieces 2-central sections, three pieces TS 10/29/2024 2:12 PM EDT [facility] Disclaimer Unless otherwise specified, all tissue is 10% NB formalin fixed and paraffin embedded. 10/29/2024 2:12 PM EDT [facility] Tissue Cheek structure / Unknown 10/28/2024 9:36 AM EDT 10/28/2024 11:38 AM EDT us Rob Griffin DO LAB PATHOLOGY ORDERABLES Fin al Result [facility] [address] [place] [address], from Last 3 Months Insurance MEDICARE [facility] Care Teams Director Biology Relationship Specialty Start Date End Date Donell Donis MD [address] [place] [address] Dr Ivet [place] PCP - General Academic Affairs Coordinator 08/01/16
--- OUTSIDE RECORDS SUMMARY | 2024-11-09 08:46 | XMS_ITS | Encounter Summary ---
Author Organization [facility] Address [address] [place] [address] Care Team Providers Care Industrial Spray Painter Name Role Phone Donell Donis MD Primary Care Provider [phone] Reason for Visit * Reason Comments Post-op 1st PO right cheek Encounter Details Date Type Department Care Team (Latest Contact Info) Description 11/04/2024 8:00 AM EDT Office Visit Plastic & Reconstructive Surgery - [place] [address] [place] [phone] Santiago Wheeler PA [address] [place] [address] Aftercare following surgery of the skin or subcutaneous tissue (Primary Dx) Social History Tobacco Use Types [...] Orientation Straight 10/28/2024 8: 20 AM EDT documented as of this encounter Progress Notes * DEBORA Paulson - 11/04/2024 8:00 AM EDT PATIENT: Shivani Hernandez ENCOUNTER: 11/04/2024 EMRN: [id number] : 1950 CHIEF COMPLAINT: Post-op (1st PO right cheek) HPI: Shivani Hernandez is a 73 y.o. female s/p lesion resection from right cheek with intermediate closure to the area last week. Here today for suture removal. No complaints or issues. Denies any fever, chills, discharge, or any other signs of infection to the incision site. Has been applying vaseline ointment to the area daily. Pathology: inal Diagnosis Cheek, right-excision: -EPIDERMAL INCLUSION CYST at 1412 I have reviewed the following sections of the chart: Patient Active Problem List Diagnosis Epidermal cyst of face PHYSICAL EXAM: Visit Vitals Smoking Status Never On physical exam, incision site is pink and healing appropriately. All areas of the surgical site appear pink and viable. No signs of necrosis. No redness, swelling, discharge, or any other signs of infection. All sutures removed. ASSESSMENT/PLAN: 1. Aftercare following surgery of the skin or subcutaneous tissue 73 y.o. female 1 week follow-up status post lesion resection. Pathology shows that right cheek lesion removed in its entirety Pathology report and results were discussed with the patient to patient's full understanding. Patient given copy. All sutures removed and vaseline applied to the incision site. Patient given postop care sheet to go. Advised to continue vaseline for 2-3 days and to make sure to wear sunscreen if out in the sun. Discussed the role of scar massage for wound healing. Patient will follow up on an as needed basis. Will discuss with Dr. Griffin. documented in this encounter Plan of Treatment Not on file documented as of this encounter Visit Diagnoses Diagnosis Aftercare following surgery of the skin or subcutaneous tissue- Primary Aftercare following surgery of the skin and subcutaneous tissue, NEC documented in this encounter Care Teams Industrial Spray Painter Relationship Specialty Start Date End Date Donell Donis MD [address] [place] [address] Dr Ivet [place] PCP - General Ultrasonic Tester 08/01/16 documented as of this encounter
== END 2024-11-09 08:45 | disposition home or self-care (01) ==
LOC: HO.MRI 08:44
PROVIDERS: PCP Internal Medicine; Visit Provider Psychiatry & Neurology Neurology
DX: M54.2 Cervicalgia (principal); R20.2 Paresthesia of skin; R29.2 Abnormal reflex
CPT/HCPCS: 72141

== ENCOUNTER → 2024-11-09 08:52 | Outpatient (BNV) | payer MEDICARE, SELFPAY | PROVIDERS: PCP Internal Medicine; Visit Provider Radiology Diagnostic Radiology | DX: M47.12 Other spondylosis with myelopathy, cervical region (principal) | CPT/HCPCS: 72141 ==

== ENCOUNTER 2025-03-04 08:05 | Outpatient (AMB) | payer MEDICARE, SELFPAY ==
--- OUTSIDE RECORDS SUMMARY | 2025-03-04 08:10 | XMS_ITS | Clinical Summary ---
Author Organization [facility] Address [address] [place], [place] [id number] Phone Care Team Providers Care Slabbing Machine Operator Name Role Phone Janes Espinal MD Primary Care Provider [phone] Social History Tobacco Use Types Packs/Day Years Used Date Smoking Tobacco: Never Assessed Education Answer Date Recorded Are you interested in more education? Not on mckenzie e 11/05/2022 Are you concerned about learning? Not on file 11/05/2022 No 11/05/2022 No 11/05/2022 Digital Access Answer Date Recorded No 12/06/2022 No 12/06/2022 Reliable internet access at home? Not on file 12/06/2022 Device with a working camera? Not on file Comments Unknown Sex and Gender Information Value Date Recorded Sex Assigned at Not on file Legal Sex Female 8:24 AM EDT Gender Identity Not on file Sexual Orientation Not on file Plan of Treatment Not on file Medical Devices Not on file [place] [id number] [facility] MEDEX SUPPLEMENT MEDICARE PART A & B [facility] MEDEX SUPPLEMENT MEDICARE PART A & B Member Subscriber Plan / Payer ( fective 2019-Present) Name:Jasmin Hernandezline Member ID:[id number] Relation to Subscriber:Self Name:David Shivani Subscriber ID:[id number] Payer ID:[id number] Group ID:Not on file Type:Medicare Address: [employer] [address] [place] [phone] [employer] MEDEX SUPPLEMENT MEDICARE PART A & B [employer] MEDEX SUPPLEMENT MEDICARE PART A & B [employer] MEDEX SUPPLEMENT MEDICARE PART A & B [employer] MEDEX SUPPLEMENT Care Teams Slabbing Machine Operator Relationship Specialty Start Date End Date Janes Espinal MD [address] [place] [address] [place] [address] PCP - General Internal Medicine 10/18/22 Additional Source Comments The information contained in this document represents components of the legal health record. It is not the complete legal health record.[facility]
--- OUTSIDE RECORDS SUMMARY | 2025-03-04 08:10 | XMS_ITS | Clinical Summary ---
Author Organization 175 [facility] Address 175 [place] [address] Phone Care Team Providers Care Plant Wire Chief Name Role Phone Donell Donis MD Primary Care Provider [phone] Allergies Active Allergy Reactions Criticality Noted Date [...] Diagnosed Date Epidermal cyst of face 10/04/2024 Social History Tobacco Use Types Packs/Day Years [...] 86 10/28/2024 9:40 AM EDT Temperature 35.8 C (96.5 F) 10/28/2024 9:40 AM EDT Respiratory Rate 18 10/28/2024 9:40 AM EDT [...] of 1 - PCV) 2002 COVID-19 Vaccine (2023- season) 2024 07/18/2022, 11/18/2021, 06/15/2021, Additional history exists Depression Screening 07/10/2024 Colorectal Cancer Screening: Colonoscopy 09/12/2024 Falls Risk Assessment 09/12/2024 Hepatitis C Screening 09/12/2024 Medicare Annual Wellness Visit 09/12/2024 Osteoporosis Screening (Bone Density Screening) 09/12/2024 Social Influencers of Health Screening 09/12/2024 Influenza Vaccine (#1) 2025 03/14/2019, 2017 Zoster Vaccines Completed 03/17/2023, 01/08/2023 RSV Immunization [...] age to complete this topic Insurance MEDICARE [facility] Care Teams Plant Wire Chief Relationship Specialty Start Date End Date Donell Donis MD [address] [place] [address] Dr Sanabriake [place] PCP - General Clinical Leader 08/01/16
--- OUTSIDE RECORDS SUMMARY | 2025-03-04 08:11 | XMS_ITS | Encounter Summary ---
Author Organization [facility] Address [address] [place], [place] [id number] Phone Care Team Providers Care Payroll Coordinator Name Role Phone Pcp, Unknown Primary Care Provider Janes Aldridge MD Primary Care Provider [phone] Reason for Referral * Hospital - Outpatient - Closed Specialty Diagnoses / Procedures Referred By Geraldo gallardo Referred To Contact Radiology Diagnoses TIA (transient ischemic attack) Tinnitus, unspecified laterality Procedures US Carotid Duplex Complete (Bilateral) Gagandeep Guevara MD Phone: tel: fax: mailto:[email or web address] Referral ID Status Reason Start Date Expiration Date Visits Re quested Visits Authorized [id number] Closed 10/03/2022 1 1 Encounter Details Date Type Department Care Team (Latest Contact Info) Description 10/03/2022 Transcribe Orders [facility] Department [address] [place] [id number] Gagandeep Guevara MD [address] [place] [address], [address] [place] [address] [email or web address] TIA (transient ischemic attack) (Primary Dx); Tinnitus, unspecified laterality Social History Tobacco Use Types Packs/Day Years Used Date Smoking Tobacco: Never Assessed Comments Unknown Sex and Gender Information Value Date Recorded Sex Assigned at Not on file Legal Sex Female 8:24 AM EDT Gender Identity Not on file Sexual Orientation Not on file documented as of this encounter Plan of Treatment Not on file documented as of this encounter Results * US Carotid Duplex Complete (Bilateral) (10/18/2022 11:23 AM EDT) Anatomical Region Laterality Modality Heart, Thoracic Vasculature, Neck Ultrasound 10/19/2022 10:5 0 AM EDT Impressions 10/19/2022 10:57 AM EDT No carotid plaquing or hemodynamically significant ICA stenoses demonstrated. POS - [id number] Narrative 10/19/2022 10:57 AM EDT COMPARISON: None CAROTID ULTRASOUND FINDINGS: Color duplex Doppler evaluation the carotid arteries was performed. On the right no carotid plaquing was noted. Peak systolic velocity in the distal CCA was calculated at 1.01 m/s and within the proximal ICA and 88.4 m/s corresponding to a ratio of 0.88. No elevated diastolic velocities noted. Mild ICA spectral broadening. On the left no carotid plaquing was demonstrated. Peak systolic velocity in the distal CCA was calculated at 1.06 m/s and within the proximal ICA at 0.86 m/s corresponding to a ratio of 0.81. No elevated diastolic velocities noted. No significant ICA spectral broadening apparent. Antegrade flow was demonstrated in both vertebral arteries. Any stenosis measurement is relative to the distal ICA diameters. Procedure Note Chester Tong MD - 10/19/2022 COMPARISON: None CAROTID ULTRASOUND FINDINGS: Color duplex Doppler evaluation the carotid arteries was performed. On the right no carotid plaquing was noted. Peak systolic velocity in thedistal CCA was calculated at 1.01 m/s and within the proximal ICA and 88.4m/s corresponding to a ratio of 0.88. No elevated diastolic velocitiesnoted. Mild ICA spectral broadening. On the left no carotid plaquing was demonstrated. Peak systolic velocityin the distal CCA was calculated at 1.06 m/s and within the proximal ICAat 0.86 m/s corresponding to a ratio of 0.81. No elevated diastolicvelocities noted. No significant ICA spectral broadening apparent. Antegrade flow was demonstrated in both vertebral arteries. Any stenosis measurement is relative to the distal ICA diameters. IMPRESSION: No carotid plaquing or hemodynamically significant ICA stenosesdemonstrated. POS - [id number] us Gagandeep Guevara MD CV US NEUROVASCULAR Final Re sult documented in this encounter Visit Diagnoses Diagnosis TIA (transient ischemic attack)- Primary Unspecified transient cerebral ischemia Tinnitus, unspecified laterality TIA (transient ischemic attack) Unspecified transient cerebral ischemia Tinnitus, unspecified laterality documented in this encounter Care Teams Payroll Coordinator Relationship Specialty Start Date End Date Pcp, Unknown PCP - General 10/06/22 10/17/22 Janes Espinal MD [address] [place] [address] [place] [address] PCP - General Internal Medicine 10/18/22 documented as of this encounter Additional Source Comments The information contained in this document represents components of the legal health record. It is not the complete legal health record.[facility]
[2025-03-04 08:14] VITALS: BP 118/70; PULSE 78; O2SAT 97; BMI 28.7
--- NOTE | 2025-03-04 08:14 | A.OFFVIS_ITS ---
Vital Signs 03/04/25 08:14 Height 4 ft 11 in Weight 142 lb BMI 28.7 BP 118/70 Blood Pressure Location Rt brachial Position Sitting Pulse 78 Pulse Source Pulse Oximeter Pulse Oximetry (%) 97 Oxygen Delivery Method Room Air Intake Visit Reasons: 6 mos FUV. GERD mgmt. Intake Note: ESTABLISHED PATIENT for mgmt of GERD and CIC. Chief Complaint; C.O. intermittent episodes over the last few months of her chronic sx. Pt denies any additional sx or concerns at this time. 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 GERD mgmt.: Details: LAST VISIT: IBS (irritable bowel syndrome) GERD (gastroesophageal reflux disease) Chronic idiopathic constipation Plan Patient will continue taking omeprazole daily and Famotidine at bedtime. Patient will continue avoiding dietary triggers and late night snacking. Staying upright for minimum 3 hours after meals discussed with patient. Patient will continue to avoid spicy food. Continue with senna daily. Increase fluid intake and activity to promote better bowel motility. Follow-up in 6 months, sooner on as needed basis. Patient is agreeable to this plan and verbalizes understanding of instructions. She was given the opportunity to ask questions and all questions answered. ? Thank you for allowing me to participate in her care New omeprazole 40 mg PO DAILY 90 caps 3RF K21.9 Refilled famotidine 20 mg PO BEDTIME 90 tabs 3RF K21.9 sennosides (Natural Senna Laxative) 17.2 mg (2 x 8.6 mg) PO BEDTIME 180 tabs 3RF constipation K59.00 TODAY'S VISIT: Patient is here today for follow-up. Patient reports that she has been doing well for the most part since last visit. Patient states that she was in [place] for over 3 months helping to take care of her mom. During the time patient states that she had couple episodes of epigastric pain postprandially. Patient states that she has not change anything in her diet. One episode lasting 4 days of epigastric pain. Patient currently is taking pantoprazole as omeprazole was not as effective. She is taking famotidine at bedtime. Trying to avoid dietary triggers and eating late at night. Patient reports constipation and uses Senokot as needed. Patient admits that she should use send him more often. Patient does not feel like she empties completely when she has a bowel movement. Patient denies melena, hematochezia, unintentional weight loss or ribbon like stools. Patient will be going for surgery of her right knee sometimes in March. Patient had colonoscopy in March of 2022 and 10 year recall was recommended [facility] Medical History Cataract Sebaceous cyst Vaginal cysts History of hepatitis C Obesity COVID-19 Fibromyalgia Asthma Surgical History H/O cataract extraction H/O arthroscopy of left knee (~01/2024) History of hysterectomy History of lumbar surgery History of carpal tunnel release H/O right knee surgery Family History Father Medical history unknown Mother Asthma Diabetes Hypertension Breast cancer Sister Breast cancer Social History Housing: Apartment Alcohol intake: never Patient Tobacco Use Status: Never used Tobacco Tobacco use type: Cigarette e-Cigarette/Vaping Use: Never Used Second Hand Smoke Exposure: No Advance Directives Date on File: 11/19/21 service: No Current occupational status: retired Cognitive needs: No Hearing needs: No Vision needs: Yes (Glasses) Female Reproductive History Menstrual Age of Menarche: 13 Review of Systems Const Denies weight gain and Denies weight loss ENT Reports no additional complaints, Denies dysphagia and Denies odynophagia Card Reports no additional complaints Resp Reports no additional complaints GI Reports abdominal pain (Epigastric), Denies belching, Denies melena, Denies bloating, Denies change in bowel habits, Reports constipation (Occasional), Denies dysphagia, Denies excessive flatus, Denies dyspepsia, Denies heartburn, Denies diarrhea, Denies loose stools, Denies nausea, Denies odynophagia and Denies vomiting Reports no additional complaints Musc Reports no additional complaints Neuro Reports no additional complaints Psych Reports no additional complaints Endo Reports no additional complaints Physical Exam Vital Signs: Last Vital Signs Pulse 78 03/04/25 08:14 BP 118/70 03/04/25 08:14 Pulse Ox 97 03/04/25 08:14 Oxygen Delivery Method Room Air 03/04/25 08:14 BMI result Body Mass Index 28.7 Const General: no acute distress Nutritional Appearance: obese Orientation/consciousness: patient oriented x3 Resp Effort & Inspection: normal respiratory effort, able to speak in complete sentences, no tracheal deviation and symmetric chest movement Auscultation: clear to auscultation bilaterally Cardio Rate: regular rate GI Inspection: Yes normal to inspection, No distended and Yes obesity Palpation (GI): Soft to palpation, not firm, nontender and No hepatosplenomegaly present Auscultation: normal bowel sounds General: Yes no CVA tenderness Back/Spine/Pelvis Back: no CVA tenderness Skin General skin exam: elasticity normal, turgor normal and dry skin Neuro General: patient oriented x3 Psych Appearance: grossly normal Mental Status: mental status grossly normal Assessment & Plan Assessment & Plan (1) History of hepatitis C: Comment: treated in 1999 Code(s): Z86.19 - Personal history of other infectious and parasitic diseases Category: Medical (2) Abdominal pain: Code(s): R10.9 - Unspecified abdominal pain Category: Medical Qualifiers: Abdominal location: upper abdomen, unspecified Qualified Code(s): R10.10 - Upper abdominal pain, unspecified (3) Irritable bowel syndrome: Code(s): K58.9 - Irritable bowel syndrome, unspecified Qualifiers: Irritable bowel syndrome type: with constipation Qualified Code(s): K58.1 - Irritable bowel syndrome with constipation (4) Gastroesophageal reflux disease: Code(s): K21.9 - Gastro-esophageal reflux disease without esophagitis Qualifiers: Esophagitis presence: esophagitis presence not specified Qualified Code(s): K21.9 - Gastro-esophageal reflux disease without esophagitis (5) Chronic idiopathic constipation: Code(s): K59.04 - Chronic idiopathic constipation Plan Patient will continue her current treatment with PPI and H2 santa. Avoid dietary triggers and late night snacking. Staying upright for minimum 3 hours after meals discussed with patient. Patient will try to take senna every other day to manage her constipation better. Increase fluid intake and activity to promote better bowel motility. Patient will follow-up in 4-5 months, sooner on as needed basis. She is agreeable to this plan and verbalizes understanding of instructions. She was given the opportunity to ask questions and all questions answered. Thank you for allowing me to participate in her care Medications: New magnesium oxide 400 mg PO DAILY 90 tabs 2RF pantoprazole 40 mg PO DAILY 90 tabs 2RF sennosides (Natural Senna Laxative) 17.2 mg (2 x 8.6 mg) PO BEDTIME 180 tabs 3RF constipation K59.00 - Constipation, unspecified Refilled famotidine 20 mg PO BEDTIME 90 tabs 3RF K21.9 - Gastro-esophageal reflux disease without esophagitis Coding Level of Care Code Est Pt Level 3 (10285) Diagnoses History of hepatitis C Z86.19 Pain of upper abdomen R10.10 Abdominal location: upper abdomen, unspecified Irritable bowel syndrome with constipation K58.1 Irritable bowel syndrome type: with constipation Gastroesophageal reflux disease, unspecified whether esophagitis present K21.9 Esophagitis presence: esophagitis presence not specified Chronic idiopathic constipation K59.04 Time Spent (min) 30 Comment 20 minutes spent with patient and additional 10 minutes spent reviewing her records
== END 2025-03-04 08:47 | disposition home or self-care (01) ==
LOC: HO.HGI 08:06
PROVIDERS: PCP Internal Medicine; Visit Provider Nurse Practitioner Family
DX: Z86.19 Personal history of other infectious and parasitic diseases (principal); R10.10 Upper abdominal pain, unspecified; K58.1 Irritable bowel syndrome with constipation; K21.9 Gastro-esophageal reflux disease without esophagitis; K59.04 Chronic idiopathic constipation
CPT/HCPCS: 99213

== ENCOUNTER → 2025-03-04 08:05 | Outpatient (BNVA) | payer MEDICARE, SELFPAY | PROVIDERS: PCP Internal Medicine; Visit Provider Nurse Practitioner Family | DX: K58.1 Irritable bowel syndrome with constipation (principal); K21.9 Gastro-esophageal reflux disease without esophagitis; K59.04 Chronic idiopathic constipation; R10.10 Upper abdominal pain, unspecified; Z86.19 Personal history of other infectious and parasitic diseases | CPT/HCPCS: 99212 ==

== ENCOUNTER 2025-03-07 08:13 | Outpatient (AMB) | payer MEDICARE, SELFPAY ==
--- NOTE | 2025-03-07 08:15 | A.OFFPC_ITS ---
Vital Signs 03/07/25 08:16 Height 4 ft 11 in Weight 142 lb 4 oz BMI 28.7 BP 120/76 Blood Pressure Location Lt brachial Position Sitting Pulse 98 Pulse Source Pulse Oximeter Temp 97.3 F Temp Source Temporal Artery Scan Pulse Oximetry (%) 96 Oxygen Delivery Method Room Air Intake Visit Reasons: pe Intake Note: Patient is here today for a physical. Hand Upper And Bottom Lacer Required: No Hardscape Foreman: Not Required per policy Accompanied by: Self / Same As Patient Allergies oxycodone (Percocet) Allergy (Unknown, Verified 03/07/25 15:55) Rash Medication List - Last Reconciled 03/07/25 by JASPAL Kingsley-C [albuterol sulfate 90 mcg inhalation Q4-6H PRN] cholecalciferol (vitamin D3) 100 mcg (2 x 50 mcg (2,000 unit)) PO DAILY famotidine 20 mg PO BEDTIME gabapentin 600 mg PO ONCE magnesium oxide 400 mg PO DAILY mirabegron ER (Myrbetriq) 25 mg PO DAILY 90 days pantoprazole 40 mg PO DAILY sennosides (Natural Senna Laxative) 17.2 mg (2 x 8.6 mg) PO BEDTIME Tobacco use date assessed: 03/07/25 Fall risk assessment: No Falls in past year Last assessed Fall Risk: 03/07/25 Dental Screening Dental Screen Date: 10/11/24 HPI pe HPI Details Dentist: up to date Eye: up to date Snellen: Right: Left: Corrected vision: yes, readers STI screening: Colonoscopy: 2021 Pap Smer:2024 mammogram: up to date PHQ-9: Flu:allergic COVID: x5 Tdap: reports that she cannot remember Diet: regular Exercise: The patient is a 74-year-old female presenting with symptoms of an upper respiratory infection and for a routine wellness check. The patient reports experiencing symptoms of an upper respiratory infection since the previous day, including sneezing, headache, shortness of breath, ear discomfort, and throat irritation. She also reports chest and back pain, which she attributes to frequent coughing. The patient has a history of an allergic reaction to the influenza vaccine, which she used to take regularly until seven years ago when she experienced a severe reaction. The patient is scheduled for right knee replacement surgery on March 19 due to osteoarthritis. She reports bilateral knee pain and indicates that the right knee is problematic. The patient underwent a colonoscopy in 2021, with a recommendation for a follow- up in 10 years. [facility] Medical History Cataract Sebaceous cyst Vaginal cysts History of hepatitis C Obesity COVID-19 Fibromyalgia Asthma Surgical History H/O cataract extraction H/O arthroscopy of left knee (~01/2024) History of hysterectomy History of lumbar surgery History of carpal tunnel release H/O right knee surgery Family History Father Medical history unknown Mother Asthma Diabetes Hypertension Breast cancer Sister Breast cancer Social History Housing: Apartment Alcohol intake: never Patient Tobacco Use Status: Never used Tobacco Tobacco use type: Cigarette e-Cigarette/Vaping Use: Never Used Second Hand Smoke Exposure: No Advance Directives Date on File: 11/19/21 service: No Current occupational status: retired Cognitive needs: No Hearing needs: No Vision needs: Yes (Glasses) Female Reproductive History Menstrual Age of Menarche: 13 Questionnaire Thrive Questionnaire Date Thrive assessed: 10/11/24 RABIA-7 AMB Questionnaire RABIA-7 Date RABIA - 7 assessed: 10/11/24 Source: Developed by Drs. Cosme Yang, Violetta Escalante, Cornelio Jonh and colleagues, with an educational ronna from [employer]. Review of Systems Const Reports headache(s) (on and off) Eyes Denies loss of vision ENT Denies vertigo, Denies dizziness, Reports otalgia (mild), Reports headache(s) (on and off), Reports nasal congestion, Reports nasal obstruction and Reports sore throat Card Reports chest pain (attributed to coughing), Denies leg edema, Denies lightheadedness and Reports dyspnea (mild) Resp Reports cough (non-productive), Denies hemoptysis, Reports dyspnea (mild) and Denies wheezing GI Denies abdominal pain, Denies melena, Denies constipation, Denies diarrhea and Denies vomiting Denies urinary frequency, Denies dysuria and Denies urinary urgency Musc Reports back pain (hx-but worsen with coughing), Reports arthralgias (bilateral knees right > left), Denies joint swelling, Denies numbness and Denies tingling Neuro Denies Abnormal speech present, Denies behavioral changes, Denies vertigo, Denies dizziness, Reports headache(s) (on and off), Denies loss of vision, Denies memory loss, Denies numbness and Denies tingling Psych Denies anxiety, Denies behavioral changes, Denies depression, Denies memory loss and Denies panic attacks Siddharth/Lymph Denies easy bleeding and Denies easy bruising Aller/Immun Denies wheezing Physical exam (Primary Care) Vital Signs: Last Vital Signs Temp 97.3 F 03/07/25 08:16 Pulse 98 03/07/25 08:16 BP 120/76 03/07/25 08:16 Pulse Ox 96 03/07/25 08:16 Oxygen Delivery Method Room Air 03/07/25 08:16 BMI result Body Mass Index 28.7 Tobacco/Smoking Status: Tobacco use Status Tobacco use date assessed 03/07/25 03/07/25 08:20 Patient Tobacco Use Status Never used Tobacco 03/07/25 08:20 Tobacco use type Cigarette 03/07/25 08:20 e-Cigarette/Vaping Use Never Used 03/07/25 08:20 Thrive Assessment: Date of Thrive Assessment Date Thrive assessed 10/11/24 03/07/25 08:20 Const General: healthy appearing, no acute distress, alert and awake Nutritional Appearance: well nourished Orientation/consciousness: oriented to person, oriented to place and oriented to time HENMT Ears: TM's normal bilaterally General nose exam: Abnormal mucous membranes and turbinates present boggy bilateral and erythematous bilateral Eyes Conjunctivae: conjunctivae normal Sclerae: sclerae normal Pupils: Equal, round and reactive pupils present Neck Neck: Yes no lymphadenopathy and Yes no JVD Thyroid: Thyroid normal Carotids: no bruits Resp Effort & Inspection: normal respiratory effort and not tachypneic Auscultation: no crackles, no rales, no rhonchi and no wheezes Cardio Rate: regular rate Rhythm: regular rhythm Heart sounds: no murmurs and normal S1 and S2 GI Palpation (GI): Soft to palpation, nontender, no hepatomegaly and no splenomegaly Auscultation: normal bowel sounds Back/Spine/Pelvis Back: back tenderness (right upper, paraspinal) Skin General skin exam: no rashes or lesions noted and dry skin Neuro General: oriented to person, oriented to place and oriented to time Cranial nerves: Yes Equal, round and reactive pupils present Speech: No Abnormal speech present Gait exam (Neuro): Normal gait present Motor exam (neuro): no tremor noted Extrem Right upper extremity: full ROM Left upper extremity: full ROM Right lower extremity: full ROM and knee Details: tenderness; no swelling; no edema Left lower extremity: full ROM and knee Details: no tenderness and no swelling; no edema Psych Mental Status: mental status grossly normal Speech and movement: Normal speech and movement present Affect: normal affect Attitude: cooperative Thought process: Normal thought process present Results AMB Urinalysis, Automated UA Leukoctes 0 Denilson/uL Last Edit by KAYE Gaines on 03/07/25 11:26 UA Nitrite Negative Last Edit by KAYE Gaines on 03/07/25 11:26 UA Urobilinogen 0.2 mg/dL Last Edit by KAYE Gaines on 03/07/25 11:2 6 UA Protein 15 mg/dL Last Edit by KAYE Gaines on 03/07/25 11:26 UA pH 5.5 Last Edit by KAYE Gaines on 03/07/25 11:26 UA Blood 0 Isaías/uL Last Edit by KAYE Gaines on 03/07/25 11:26 UA Specific Tyler 1.020 Last Edit by KAYE Gaines on 03/07/25 11: 26 UA Ketone Negative Last Edit by KAYE Gaines on 03/07/25 11:26 UA Bilirubin 0 mg/dL Last Edit by KAYE Gaines on 03/07/25 11:26 UA Glucose 0 mg/dL Last Edit by KAYE Gaines on 03/07/25 11:26 Coding Level of Care Code Est Pt Prev Care >65y(47771) Diagnoses Adult general medical exam Z00.00 Osteopenia of neck of femur, unspecified laterality M85.859 Laterality: unspecified laterality Osteopenia location: femoral neck Vitamin D deficiency disease E55.9 OAB (overactive bladder) N32.81 Tension-type headache, not intractable, unspecified chronicity pattern G44.209 Headache chronicity pattern: unspecified pattern Headache type: tension-type Intractability: not intractable Lumbar pain M54.50 Class 1 obesity with body mass index (BMI) of 30.0 to 30.9 in adult, unspecified obesity type, unspecified whether serious comorbidity present E66.811; Z68.30 Body mass index: BMI 30.0-30.9 Obesity classification: adult class 1 (BMI 30 - 34.9) Obesity type: unspecified obesity type Serious obesity comorbidity presence: unspecified whether serious comorbidity present Fibromyalgia M79.7 Asthma, unspecified asthma severity, unspecified whether complicated, unspecified whether persistent J45.909 Asthma complication type: unspecified Asthma persistence: unspecified Asthma severity: unspecified severity Right knee pain, unspecified chronicity M25.561 Chronicity: unspecified Rhinosinusitis J32.9 Time Spent (min) 40 Assessment & Plan Assessment & Plan (1) Adult general medical exam: Code(s): Z00.00 - Encounter for general adult medical examination without abnormal findings Category: Medical Plan: 74-year-old female presenting for annual physical. Preventative guidelines reviewed with the patient, no recent labs, encouraged the patient to complete preordered labs as soon as possible. Colonoscopy 2021 to repeat in 10 years. She is up-to-date on her mammogram and Pap smear as well. The patient has a history of an allergic reaction to the influenza vaccine, which she used to take regularly until a severe reaction occurred seven years ago. She is advised to avoid the influenza vaccine in the future. (2) Osteopenia: Code(s): M85.80 - Other specified disorders of bone density and structure, unspecified site Category: Medical Qualifiers: Laterality: unspecified laterality Osteopenia location: femoral neck Qualified Code(s): M85.859 - Other specified disorders of bone density and structure, unspecified thigh Plan: The DEXA scan on 11/06/22 showed -1.4 in femoral neck. This test was ordered by REGULATOR OPERATOR, with plans to repeat next year. Continue vitamin-D3 100 mcg daily (3) Vitamin D deficiency disease: Code(s): E55.9 - Vitamin D deficiency, unspecified Category: Medical Plan: Continue cholecalciferol 100 mcg daily (4) OAB (overactive bladder): Code(s): N32.81 - Overactive bladder Category: Medical Plan: The patient was started on Gemtesa in combination with Botox injection by Dr. Waters (urology). The patient insurance denies Gemtesa and this was switched to Myrbetriq 25 mg daily. Patient is denying urinary symptoms at this time. Follow up with Urology as scheduled (5) Headache: Code(s): R51.9 - Headache, unspecified Category: Medical Qualifiers: Headache chronicity pattern: unspecified pattern Headache type: tension-type Intractability: not intractable Qualified Code(s): G44.209 - Tension-type headache, unspecified, not intractable Plan: Patient was seen by Neurology who recommended amitriptyline 25 mg at bedtime in 2020. It is unclear if the patient ever restarted this medication. Continue magnesium oxide 400 mg daily. Maintain adequate fluid hydration (6) Lumbar pain: Code(s): M54.50 - Low back pain, unspecified Category: Medical Plan: Patient reports on and off back pain. She has a history of lumbar surgery. Lumbar x-ray done in 2021 shows mild degenerative disc changes L2-L3, L3-L4 disc levels with ventral spondylosis. It shows device stabilizing spinous processes at the L4-L5 disc level. Reinforced weight and activity restrictions. Continue gabapentin 600 mg daily . (7) Obesity: Code(s): E66.9 - Obesity, unspecified Category: Medical Qualifiers: Body mass index: BMI 30.0-30.9 Obesity classification: adult class 1 (BMI 30 - 34.9) Obesity type: unspecified obesity type Serious obesity comorbidity presence: unspecified whether serious comorbidity present Qualified Code(s): E66.811 - Obesity, class 1; Z68.30 - Body mass index [BMI] 30.0-30.9, adult Plan: Reinforced low-cholesterol diet and activity as tolerated (8) Fibromyalgia: Code(s): M79.7 - Fibromyalgia Category: Medical Plan: Encouraged activity as tolerated. Continue gabapentin 600 mg daily (9) Asthma: Code(s): J45.909 - Unspecified asthma, uncomplicated Category: Medical Qualifiers: Asthma complication type: unspecified Asthma persistence: unspecified Asthma severity: unspecified severity Qualified Code(s): J45.909 - Unspecified asthma, uncomplicated Plan: Patient denies any recent symptoms. Continue albuterol sulfate 90 mcg q.4-6 hours p.r.n. we will continue to monitor (10) Right knee pain: Code(s): M25.561 - Pain in right knee Category: Medical Qualifiers: Chronicity: unspecified Qualified Code(s): M25.561 - Pain in right knee Plan: The patient is scheduled for right knee replacement surgery on March 19 due to osteoarthritis. She reports bilateral knee pain, indicating that the right knee is problematic. (11) Rhinosinusitis: Code(s): J32.9 - Chronic sinusitis, unspecified Category: Medical Plan: The patient is experiencing symptoms consistent with an upper respiratory infection, including sneezing, headache, and cough. Given the upcoming knee surgery, antibiotics were prescribed to prevent any potential complications from a bacterial infection. Medications: New prednisone 20 mg PO DAILY 5 tabs 0RF 5 days amoxicillin-pot clavulanate 875-125 mg 1 tab PO BID 14 tabs 0RF 7 days albuterol sulfate 90 mcg/actuation (Ventolin HFA) 2 puffs inhalation Q4-6H PRN 8.5 grams 3RF shortness of breath or wheezing
[2025-03-07 08:16] VITALS: BP 120/76; PULSE 98; TEMP 36.3; O2SAT 96; BMI 28.7
--- OUTSIDE RECORDS SUMMARY | 2025-03-07 08:59 | XMS_ITS | Clinical Summary ---
Author Organization [address] [facility] Address [address] [place] [address] Phone Care Team Providers Care [employer] Name Role Phone Donell Donis MD Primary Care Provider [phone] Allergies Active Allergy Reactions Criticality Noted Date [...] to complete this topic Insurance MEDICARE [facility] Care Teams [employer] Relationship Specialty Start Date End Date Donell Donis MD [address] [place] [address] Dr [place] PCP - General Insulating Machine Operator 08/01/16
--- OUTSIDE RECORDS SUMMARY | 2025-03-07 08:59 | XMS_ITS | Clinical Summary ---
Author Organization [facility] Address [address] [place], [place] [id number] Phone Care Team Providers Care Rotary Veneer Machine Operator Name Role Phone Janes Espinal MD Primary Care Provider [phone] Social History Tobacco Use Types Packs/Day Years [...] [place] [id number] [facility] MEDEX SUPPLEMENT MEDICARE PART A & B [facility] MEDEX SUPPLEMENT MEDICARE PART A & B Member Subscriber Plan / Payer ( fective 2019-Present) Name:Jasmin Hernandezline Member ID:[id number] Relation to Subscriber:Self Name:David Shivani Subscriber ID:[id number] Payer ID:[id number] Group ID:Not on file Type:Medicare Address: [employer] [address] [place] [id number] [employer] MEDEX SUPPLEMENT MEDICARE PART A & B [employer] MEDEX SUPPLEMENT MEDICARE PART A & B [employer] MEDEX SUPPLEMENT MEDICARE PART A & B [employer] MEDEX SUPPLEMENT Care Teams Rotary Veneer Machine Operator Relationship Specialty Start Date End Date Janes Espinal MD [address] [place] [address] [place] [address] PCP - General Internal Medicine 10/18/22 Additional Source Comments The information contained in this document represents components of the legal health record. It is not the complete legal health record.[facility]
--- OUTSIDE RECORDS SUMMARY | 2025-03-07 08:59 | XMS_ITS | Encounter Summary ---
Author Organization [facility] Address [address] [place], [place] [address] Phone Care Team Providers Care Bone Process Operator Name Role Phone Pcp, Unknown Primary Care Provider Janes Aldridge MD Primary Care Provider [phone] Reason for Referral * Hospital - Outpatient - Closed Specialty Diagnoses / Procedures Referred By Geraldo gallardo Referred To Contact Radiology Diagnoses TIA (transient ischemic attack) Tinnitus, unspecified laterality Procedures US Carotid Duplex Complete (Bilateral) Gagandeep Guevara MD Phone: tel: fax: mailto:[email or web address] Referral ID Status Reason Start Date Expiration Date Visits Re quested Visits Authorized [id number] Closed 10/03/2022 1 1 Encounter Details Date Type Department Care Team (Latest Contact Info) Description 10/03/2022 Transcribe Orders [facility] Department [address] [place] [id number] Gagandeep Guevara MD [address] [place] [address], [address] [place] [address] [email or web address] TIA (transient ischemic attack) (Primary Dx); [...] hemodynamically significant ICA stenoses demonstrated. POS - [id number] Narrative 10/19/2022 10:57 AM EDT COMPARISON: None [...] or hemodynamically significant ICA stenosesdemonstrated. POS - [id number] us Gagandeep Guevara MD CV US NEUROVASCULAR Final Re sult documented in this encounter Visit Diagnoses Diagnosis TIA (transient ischemic attack)- Primary Unspecified transient cerebral ischemia Tinnitus, unspecified laterality TIA (transient ischemic attack) Unspecified transient cerebral ischemia Tinnitus, unspecified laterality documented in this encounter Care Teams Bone Process Operator Relationship Specialty Start Date End Date Pcp, Unknown PCP - General 10/06/22 10/17/22 Janes Espinal MD [address] [place] [address] [place] [address] PCP - General Internal Medicine 10/18/22 documented as of this encounter Additional Source Comments The information contained in this document represents components of the legal health record. It is not the complete legal health record.[facility]
== END 2025-03-07 08:58 | disposition home or self-care (01) ==
DX: M54.50 Low back pain, unspecified (principal); E55.9 Vitamin D deficiency, unspecified; E66.811 Obesity, class 1; Z68.30 Body mass index [BMI] 30.0-30.9, adult; N32.81 Overactive bladder; G44.209 Tension-type headache, unspecified, not intractable; M79.7 Fibromyalgia; J45.909 Unspecified asthma, uncomplicated; M25.561 Pain in right knee; J32.9 Chronic sinusitis, unspecified

== ENCOUNTER → 2025-03-07 08:13 | Outpatient (BNVA) | payer MEDICARE, SELFPAY | PROVIDERS: PCP Internal Medicine | DX: Z00.01 Encounter for general adult medical examination with abnormal findings (principal); M85.859 Other specified disorders of bone density and structure, unspecified thigh; E55.9 Vitamin D deficiency, unspecified; G44.209 Tension-type headache, unspecified, not intractable; M54.50 Low back pain, unspecified; E66.811 Obesity, class 1; Z68.30 Body mass index [BMI] 30.0-30.9, adult; M79.7 Fibromyalgia; J45.909 Unspecified asthma, uncomplicated; M25.561 Pain in right knee; J32.9 Chronic sinusitis, unspecified; R39.9 Unspecified symptoms and signs involving the genitourinary system; N31.8 Other neuromuscular dysfunction of bladder; N32.81 Overactive bladder | CPT/HCPCS: 51798; 81003; 99212 ==

== ENCOUNTER 2025-03-07 10:38 | Outpatient (AMB) | payer MEDICARE, SELFPAY ==
--- NOTE | 2025-03-07 11:04 | A.OFFVIS_ITS ---
Intake Visit Reasons: Follow up/PVR/Meds Intake Note: Patient is present for: follow up/pvr/med review Urology Medication:myrbetriq Blood Thinner:NONE today's pvr:5mls Frame Feeder Required: Yes Accompanied by: Self / Same As Patient Allergies oxycodone (Percocet) Allergy (Unknown, Verified 03/07/25 11:06) Rash Medication List - Last Reconciled 03/07/25 by Parker Waters MD albuterol sulfate 90 mcg/actuation (Ventolin HFA) 2 puffs inhalation Q4-6H PRN amoxicillin-pot clavulanate 875-125 mg 1 tab PO BID 7 days cholecalciferol (vitamin D3) 100 mcg (2 x 50 mcg (2,000 unit)) PO DAILY famotidine 20 mg PO BEDTIME gabapentin 600 mg PO ONCE magnesium oxide 400 mg PO DAILY mirabegron ER (Myrbetriq) 50 mg PO DAILY pantoprazole 40 mg PO DAILY prednisone 20 mg PO DAILY 5 days sennosides (Natural Senna Laxative) 17.2 mg (2 x 8.6 mg) PO BEDTIME HPI Comments Details: 03/07/25--Shivani is followed for overactive bladder. She received Botox 100 units November 2023 but did not feel the treatment was beneficial. She does not want to have repeat Botox. Gemtesa was prescribed but not covered by her insurance. She is currently on Myrbetriq 25 mg daily which works a few hours after she takes the medication and then she has increased urgency later in the day. I have prescribed Myrbetriq 50 mg we will schedule a follow-up in 6-8 weeks to review her urinary symptoms. 05/30/24--Shivani is a 73-year-old female who presents today to the office for a follow-up for overactive bladder symptoms. She is on combination therapy gemtesa 75 mg daily and is s/p botox 100 units - 11/21/23. Currently she states she is doing good, Urinary frequency and urgency under control. Plan fu in 6 months 02/28/24--Shivani is a 72-year-old female who presents today to the office for a follow-up for overactive bladder symptoms. She had urodynamics which were consistent with sensory urgency. Shivani is s/p botox 100 units, she states she has less leakage, complains of some dysuria. 11/02/23--Shivani is a 72-year-old female who presents today to the office for a follow-up. She is on gemtesa 75 mg daily for overactive bladder symptoms. She had urodynamics which were consistent with sensory urgency. She states the medication is not controlling her bladder leakage episodes. She has leakage with urgency. She also has leakage with coughing. I have explained that anticholinergics or use mainly to target the bladder spasms. The patient has failed several p.o. anticholinergics. I have discussed bladder Botox injection. The patient is here with her daughter and is interested in proceeding with this treatment plan. She understands that this will not affect her leakage associated coughing as it relates to weak pelvic floor muscles. 05/25/2023--She was last seen by me on 04/13/2023 for urodynamics procedure. Findings consistent with Sensory urgency. Discussed Treatment options to include antimuscarinics, botox bladder injection, neuromodulation with Interstim therapy. Patient was prescribed gemtesa but states that she did not fill the Gemtesa 90 tablets as the cost was 105 dollars as she cannot afford. She states that she called to the office for different medication and Myrbetriq 50 mg was sent to the Pharmacy. Patient states that she only had minimal improvement on the Myrbetriq during the day. She states that she is going frequently in the evening and getting up frequently at night to urinate. She is willing to try the Gemtesa and wants only a 30 day supply sent to the pharm. 04/13/23-- urodynamics- Findings consistent with Sensory urgency. EMG- Appropriate changes in the waveforms were noted through out the study. There was a decrease in the EMG activity during the voiding c/w normal function of the pelvic floor. Discussed Treatment options to include antimuscarinics, botox bladder injection, neuromodulation with Interstim therapy. Discussed the use of vaginal estrogen therapy. Patient has a family history of breast cancer in her mother and aunt and was told to avoid vaginal estrogen by her REGRADER. [facility] Medical History Cataract Sebaceous cyst Vaginal cysts History of hepatitis C Obesity COVID-19 Fibromyalgia Asthma Surgical History H/O cataract extraction H/O arthroscopy of left knee (~01/2024) History of hysterectomy History of lumbar surgery History of carpal tunnel release H/O right knee surgery Family History Father Medical history unknown Mother Asthma Diabetes Hypertension Breast cancer Sister Breast cancer Social History Housing: Apartment Alcohol intake: never Patient Tobacco Use Status: Never used Tobacco Tobacco use type: Cigarette e-Cigarette/Vaping Use: Never Used Second Hand Smoke Exposure: No Advance Directives Date on File: 11/19/21 service: No Current occupational status: retired Cognitive needs: No Hearing needs: No Vision needs: Yes (Glasses) Female Reproductive History Menstrual Age of Menarche: 13 Review of Systems Const All systems reviewed & are unremarkable except as noted in HPI and below Reports no additional complaints Eyes Reports no additional complaints ENT Reports no additional complaints Card Reports no additional complaints Resp Reports no additional complaints GI Reports no additional complaints Reports as per HPI Musc Reports no additional complaints Skin/Breast Reports system reviewed and no additional complaints, except as documented Neuro Reports no additional complaints Psych Reports no additional complaints Endo Reports no additional complaints Siddharth/Lymph Reports no additional complaints Aller/Immun Reports no additional complaints Office Procedures Post Void Residual Post Residual Void Post Void Residual (PVR): 5 47769-[id number] Void Residual by ultrasound Results AMB Urinalysis, Automated UA Leukoctes 0 Denilson/uL Last Edit by KAYE Gaines on 03/07/25 11:26 UA Nitrite Negative Last Edit by KAYE Gaines on 03/07/25 11:26 UA Urobilinogen 0.2 mg/dL Last Edit by KAYE Gaines on 03/07/25 11:2 6 UA Protein 15 mg/dL Last Edit by KAYE Gaines on 03/07/25 11:26 UA pH 5.5 Last Edit by KAYE Gaines on 03/07/25 11:26 UA Blood 0 Isaías/uL Last Edit by KAYE Gaines on 03/07/25 11:26 UA Specific [place] 1.020 Last Edit by KAYE Gaines on 03/07/25 11: 26 UA Ketone Negative Last Edit by KAYE Gaines on 03/07/25 11:26 UA Bilirubin 0 mg/dL Last Edit by KAYE Gaines on 03/07/25 11:26 UA Glucose 0 mg/dL Last Edit by KAYE Gaines on 03/07/25 11:26 Results Reviewed Results Reviewed: Laboratory Last Values Urine pH (Auto) 5.5 03/07/25 11:26 Specific [place] (Auto) 1.020 03/07/25 11:26 Urine Protein (Auto) 15 mg/dL 03/07/25 11:26 Glucose (UA)(Auto) 0 mg/dL 03/07/25 11:26 Urine Ketones (Auto) Negative 03/07/25 11:26 Urine Blood (Auto) 0 Isaías/uL 03/07/25 11:26 Urine Nitrite (Auto) Negative 03/07/25 11:26 Urine Bilirubin (Auto) 0 mg/dL 03/07/25 11:26 Urine Urobilinogen (Auto) 0.2 mg/dL 03/07/25 11:26 Leukocyte Esterase (Auto) 0 Denilson/uL 03/07/25 11:26 Assessment & Plan Assessment & Plan (1) OAB (overactive bladder): Code(s): N32.81 - Overactive bladder Category: Medical (2) Frequency-urgency syndrome: Code(s): N31.8 - Other neuromuscular dysfunction of bladder Category: Medical (3) UTI symptoms: Code(s): R39.9 - Unspecified symptoms and signs involving the genitourinary system Category: Medical Plan I have prescribed Myrbetriq 50 mg we will schedule a follow-up in 6-8 weeks to review her urinary symptoms. Orders: Orders AMB Post Void Residual by ultrasound Today N32.81 - Overactive bladder AMB Urinalysis Automated Today Z13.9 - Encounter for screening, unspecified Medications: New mirabegron ER (Myrbetriq) 50 mg PO DAILY 90 tabs 2RF Discontinued mirabegron ER (Myrbetriq) Discontinued Reason: Doctor's Order 25 mg PO DAILY 90 days 90 tabs 0RF Patient Instructions: The patient had an opportunity to ask questions regarding treatment plan. The patient expressed understanding and agreement with the above treatment plan. The patient is aware they should contact our office by phone for worsening of their current condition or the appearance of new symptoms. Compliance is encouraged with any medications and followup testing that is ordered. It is a privilege to be allowed the opportunity to participate in the urologic care of your patient. If you have any questions or concerns regarding treatment for the above conditions please do not hesitate to contact me. The office telephone contact is [phone]. This note is constructed in part using voice recognition software. While every effort has been made to ensure accuracy soldering machine operator automatic errors may have been included. Yours sincerely, Parker Waters MD Coding Level of Care Code Est Pt Level 4 (08401) Complex EM visit Add On G2211 Diagnoses OAB (overactive bladder) N32.81 Frequency-urgency syndrome N31.8 UTI symptoms R39.9 CPT Codes Post Residual Void - PVR CPT Code: [id number]-[id number] Void Residual by ultrasound ([id number])
== END 2025-03-07 11:57 | disposition home or self-care (01) ==
LOC: HO.HUSH 10:39
PROVIDERS: PCP Internal Medicine; Visit Provider Urology
DX: N32.81 Overactive bladder (principal); N31.8 Other neuromuscular dysfunction of bladder; R39.9 Unspecified symptoms and signs involving the genitourinary system; Z13.9 Encounter for screening, unspecified
CPT/HCPCS: 99214; G2211

== ENCOUNTER 2025-04-30 11:10 | Outpatient (REF) | payer MEDICARE, SELFPAY ==
--- NOTE | ~2025-04-30 | MM_ITS ---
EXAMINATION: DXA BONE DENSITY AXIAL HISTORY: Z78.0 - Asymptomatic menopausal state TECHNIQUE: [employer] Dual energy absorptiometry (DEXA) of the lumbar spine, total left hip, and femoral neck was performed. COMPARISON: Comparison is made with the prior examination dated 02/09/2023. FINDINGS: The bone mineral density of the lumbar spine is 1.241 g/cm2, corresponding to a T-score of 0.6, and a Z-score of 2.3. This is indicative of normal bone mineral density. This represents a BMD change of 6.4% compared to the prior exam. This is statistically significant. The bone mineral density of the left total hip is 0.943 g/cm2, corresponding to a T-score of -0.5, and a Z-score of 1.1. This is indicative of normal bone mineral density. This represents a BMD change of -7.1% compared to the prior exam. This is statistically significant. The bone mineral density of the left femoral neck is 0.808 g/cm2, corresponding to a T-score of -1.7, and a Z-score of 0.1. This is indicative of osteopenia. This represents a BMD change of -4.4% compared to the prior exam. FRACTURE RISK: The FRAX index suggests a ten year probability of major osteoporotic fracture of 6.1%, and of hip fracture 1.1%. MM/XR DEXA axial skeleton IMPRESSION: Based on bone mineral density, and according to World Health Organization (WHO) criteria, the diagnosis is consistent with osteopenia. Statistically, 68% of repeat scans fall within 1 SD (+/- 0.010 g/cm2 for AP spine L1-L4) and 1 SD (+/- 0.012 g/cm2 for femur total) FRAX is a trademark of the [employer]'s [facility] Metabolic Bone Disease, a World Health Organization (WHO) Collaborating Center. Electronically signed by: Cosme Ta MD 04/30/2025 11:37 AM EDT
--- OUTSIDE RECORDS SUMMARY | 2025-04-30 15:12 | XMS_ITS | Clinical Summary ---
Author Organization [address] [facility] Address [address] [place] [address] Phone Care Team Providers Care Counselor Education Professor Name Role Phone Donell Donis MD Primary Care Provider [phone] Allergies Active Allergy Reactions Criticality Noted Date [...] Last Done Comments Breast Cancer Screening 1950 Colorectal Cancer Screening: Colonoscopy 1950 DTaP,Tdap,and Td Vaccines (1 - Tdap) 12/10/1971 Pneumococcal Vaccine: 50+ Years (1 of 1 - PCV) 2002 Depression Screening 07/10/2024 Falls Risk Assessment 09/12/2024 Hepatitis C Screening 09/12/2024 Medicare Annual Wellness Visit 09/12/2024 Osteoporosis Screening (Bone Density Screening) 09/12/2024 Social Influencers of Health Screening 09/12/2024 COVID-19 Vaccine ( season) 2025 07/18/2022, 11/18/2021, 06/15/2021, Additional history exists Influenza Vaccine (#1) 2025 03/14/2019, 2017 Zoster [...] age to complete this topic Insurance MEDICARE [facility] Care Teams Counselor Education Professor Relationship Specialty Start Date End Date Donell Donis MD [address] [place] [address] Dr [place] PCP - General Corridor Redevelopment Manager 08/01/16
--- OUTSIDE RECORDS SUMMARY | 2025-04-30 15:12 | XMS_ITS | Encounter Summary ---
Author Organization [facility] Address [address] [place], [place] [address] Phone Care Team Providers Care Grinder Operator Name Role Phone Pcp, Unknown Primary Care Provider Janes Aldridge MD Primary Care Provider [phone] Reason for Referral * Hospital - Outpatient - Closed Specialty Diagnoses / Procedures Referred By Geraldo gallardo Referred To Contact Radiology Diagnoses TIA (transient ischemic attack) Tinnitus, unspecified laterality Procedures US Carotid Duplex Complete (Bilateral) Gagandeep Guevara MD Phone: tel: fax: mailto:[email or web address] Referral ID Status Reason Start Date Expiration Date Visits Re quested Visits Authorized [id number] Closed 10/03/2022 1 1 Encounter Details Date Type Department Care Team (Latest Contact Info) Description 10/03/2022 Transcribe Orders [facility] Department [address] [place] [id number] Gagandeep Guevara MD [address] [place] [address], [address] [place] [address] [email or web address] TIA (transient ischemic attack) (Primary Dx); [...] hemodynamically significant ICA stenoses demonstrated. POS - [id number] Narrative 10/19/2022 10:57 AM EDT COMPARISON: None [...] or hemodynamically significant ICA stenosesdemonstrated. POS - [id number] us Gagandeep Guevara MD CV US NEUROVASCULAR Final Re sult documented in this encounter Visit Diagnoses Diagnosis TIA (transient ischemic attack)- Primary Unspecified transient cerebral ischemia Tinnitus, unspecified laterality TIA (transient ischemic attack) Unspecified transient cerebral ischemia Tinnitus, unspecified laterality documented in this encounter Care Teams Grinder Operator Relationship Specialty Start Date End Date Pcp, Unknown PCP - General 10/06/22 10/17/22 Janes Espinal MD [address] [place] [address] [place] [address] PCP - General Internal Medicine 10/18/22 documented as of this encounter Additional Source Comments The information contained in this document represents components of the legal health record. It is not the complete legal health record.[facility]
--- OUTSIDE RECORDS SUMMARY | 2025-04-30 15:12 | XMS_ITS | Clinical Summary ---
Author Organization [facility] Address [address] [place], [place] [address] Phone Care Team Providers Care Referral Management Liaison Name Role Phone Janes Espinal MD Primary Care Provider [phone] Social History Tobacco Use Types Packs/Day Years [...] Insurance [place] [id number] [facility] MEDEX SUPPLEMENT MEDICARE PART A & B [facility] MEDEX SUPPLEMENT MEDICARE PART A & B Member Subscriber Plan / Payer ( fective 2019-Present) Name:Jasmin Hernandezline Member ID:[id number] Relation to Subscriber:Self Name:David Shivani Subscriber ID:[id number] Payer ID:[id number] Group ID:Not on file Type:Medicare Address: [facility] [address] [place] [phone] [employer] MEDEX SUPPLEMENT MEDICARE PART A & B Member Subscriber Plan / Payer ( fective 2019-Present) Name:Shivani Hernandez Member ID:[id number] Relation to Subscriber:Self Name:Shivani Hernandez Subscriber ID:[id number] Payer ID:[id number] Group ID:Not on file Type:Medicare Address: [facility] [address] [place], [place] [id number] [employer] MEDEX SUPPLEMENT MEDICARE PART A & B Member Subscriber Plan / Payer (Ef fective 2019-Present) Name:Shivani Hernandez Member ID:[id number] Relation to Subscriber:Self Name:Shivani Hernandez Subscriber ID:[id number] Payer ID:[id number] Group ID:Not on file Type:Medicare Address: [facility] [address] [place], [place] [phone] [employer] MEDEX SUPPLEMENT MEDICARE PART A & B Member Subscriber Plan / Payer ( fective 2019-Present) Name:Shivani Hernandez Member ID:[id number] Relation to Subscriber:Self Name:Shivani Hernandez Subscriber ID:[id number] Payer ID:[id number] Group ID:Not on file Type:Medicare Address: [facility] [address] [place] [id number] [employer] MEDEX SUPPLEMENT Care Teams Referral Management Liaison Relationship Specialty Start Date End Date Janes Espinal MD [address] [place] [address] [place] [address] PCP - General Internal Medicine 10/18/22 Additional Source Comments The information contained in this document represents components of the legal health record. It is not the complete legal health record.[facility]
== END 2025-04-30 11:11 | disposition home or self-care (01) ==
LOC: HO.MAMMO 11:10
PROVIDERS: Visit Provider Obstetrics & Gynecology
DX: Z13.820 Encounter for screening for osteoporosis (principal); Z78.0 Asymptomatic menopausal state
CPT/HCPCS: 77080

== ENCOUNTER → 2025-04-30 11:30 | Outpatient (BNV) | payer MEDICARE, SELFPAY | PROVIDERS: Visit Provider Radiology Diagnostic Radiology | DX: E28.39 Other primary ovarian failure (principal) | CPT/HCPCS: 77080 ==

== ENCOUNTER 2025-05-06 09:19 | Outpatient (REF) | payer MEDICARE, SELFPAY ==
[2025-05-06 11:11] LABS: Anion Gap 11 (12-20); Blood Urea Nitrogen 12 mg/dL (9-16); Calcium 9.6 mg/dL (8.4-10.2); Carbon Dioxide 27 mmol/L (22-29); Chloride 108 mmol/L (96-108); Estimated Glomerular Filt Rate > 60; Potassium 4.1 mmol/L (3.3-5.1); Sodium 142 mmol/L (135-145)
[2025-05-06 11:51] LABS: Appearance Urine Clear; Glucose Urine UA Negative (Negative); PH 5.5 (5.0-9.0); Specific Gravity - Urine 1.020 (1.005-1.025); UMIC TRIGGER UACC YES
[2025-05-06 17:49] LABS: Appearance Urine Clear; Glucose Urine UA Negative (Negative); PH 5.5 (5.0-9.0); Specific Gravity - Urine 1.020 (1.005-1.025); UMIC TRIGGER UACC YES
[2025-05-06 18:07] LABS: UACC Culture Trigger YES
== END 2025-05-06 09:20 | disposition home or self-care (01) ==
LOC: HO.LAB 09:19
PROVIDERS: Visit Provider Student in an Organized Health Care Education/Training Program
DX: R33.9 Retention of urine, unspecified (principal); R35.0 Frequency of micturition
CPT/HCPCS: 36415; 80048; 81001; 81003; 87086; 96127; 99212

== ENCOUNTER 2025-05-08 12:18 | Outpatient (REF) | payer MEDICARE, SELFPAY ==
--- NOTE | ~2025-05-08 | US_ITS ---
EXAMINATION: US RETROPERITONEUM HISTORY: R33.9 - Retention of urine, unspecified TECHNIQUE: Real-time grayscale ultrasound imaging of the kidneys was performed and images were reviewed. COMPARISON: Correlation is made with an abdominal ultrasound dated 08/09/2021. FINDINGS: Right kidney: The right kidney measures 9.1 x 3.9 x 3.5 cm. Renal parenchymal echotexture and thickness are normal. There are no masses. There is fullness of the renal pelvis. There is no hydronephrosis or renal calculi. Left Kidney: The left kidney measures 8.9 x 4.5 x 4.8 cm. Renal parenchymal echotexture and thickness are normal. There are no masses. There is no hydronephrosis or renal calculi. The urinary bladder is unremarkable. Bilateral ureteral jets are identified. Before voiding, the urinary bladder measured 10.2 x 7.0 x 8.4 cm, for an estimated volume of 314 mL. After voiding, the urinary bladder measured 5.2 x 4.9 x 3.1 cm, for an estimated volume of 41 mL. US/US retroperitoneal comp IMPRESSION: 1. Fullness of the right renal pelvis. Otherwise unremarkable retroperitoneal ultrasound. 2. Post void bladder residual of 41 mL. Electronically signed by: Cosme Ta MD 05/08/2025 01:09 PM EDT
--- OUTSIDE RECORDS SUMMARY | 2025-05-08 15:10 | XMS_ITS | Clinical Summary ---
Author Organization [facility] Address [address] [place], [place] [address] Phone Care Team Providers Care Medical Sales Associate Name Role Phone Janes Espinal MD Primary Care Provider [phone] Social History Tobacco Use Types Packs/Day Years [...] Insurance [place] [address] [facility] MEDEX SUPPLEMENT MEDICARE PART A & B [facility] MEDEX SUPPLEMENT MEDICARE PART A & B Member Subscriber Plan / Payer ( fective 2019-Present) Name:Jasmin Hernandezline Member ID:[id number] Relation to Subscriber:Self Name:David Shivani Subscriber ID:[id number] Payer ID:[id number] Group ID:Not on file Type:Medicare Address: [employer] [address] [place] [phone] [employer] MEDEX SUPPLEMENT MEDICARE PART A & B [employer] MEDEX SUPPLEMENT MEDICARE PART A & B [employer] MEDEX SUPPLEMENT MEDICARE PART A & B [employer] MEDEX SUPPLEMENT Care Teams Medical Sales Associate Relationship Specialty Start Date End Date Janes Espinal MD [address] [place] [address] [place] [address] PCP - General Internal Medicine 10/18/22 Additional Source Comments The information contained in this document represents components of the legal health record. It is not the complete legal health record.[facility]
--- OUTSIDE RECORDS SUMMARY | 2025-05-08 15:10 | XMS_ITS | Encounter Summary ---
Author Organization [facility] Address [address] [place], [place] [address] Phone Care Team Providers Care Park Worker Name Role Phone Pcp, Unknown Primary Care Provider Janes Aldridge MD Primary Care Provider [phone] Reason for Referral * Hospital - Outpatient - Closed Specialty Diagnoses / Procedures Referred By Geraldo gallardo Referred To Contact Radiology Diagnoses TIA (transient ischemic attack) Tinnitus, unspecified laterality Procedures US Carotid Duplex Complete (Bilateral) Gagandeep Guevara MD Phone: tel: fax: mailto:[email or web address] Referral ID Status Reason Start Date Expiration Date Visits Re quested Visits Authorized [id number] Closed 10/03/2022 1 1 Encounter Details Date Type Department Care Team (Latest Contact Info) Description 10/03/2022 Transcribe Orders [facility] Department [address] [place] [address] Gagandeep Guevara MD [address] [place] [address], [address] [place] [address] [email or web address] TIA (transient ischemic attack) (Primary Dx); [...] hemodynamically significant ICA stenoses demonstrated. POS - [id number] Narrative 10/19/2022 10:57 AM EDT COMPARISON: None [...] or hemodynamically significant ICA stenosesdemonstrated. POS - [id number] us Gagandeep Guevara MD CV US NEUROVASCULAR Final Re sult documented in this encounter Visit Diagnoses Diagnosis TIA (transient ischemic attack)- Primary Unspecified transient cerebral ischemia Tinnitus, unspecified laterality TIA (transient ischemic attack) Unspecified transient cerebral ischemia Tinnitus, unspecified laterality documented in this encounter Care Teams Park Worker Relationship Specialty Start Date End Date Pcp, Unknown PCP - General 10/06/22 10/17/22 Janes Espinal MD [address] [place] [address] [place] [address] PCP - General Internal Medicine 10/18/22 documented as of this encounter Additional Source Comments The information contained in this document represents components of the legal health record. It is not the complete legal health record.[facility]
--- OUTSIDE RECORDS SUMMARY | 2025-05-08 15:10 | XMS_ITS | Clinical Summary ---
Author Organization [facility] Address [address] [place] [address] Phone Care Team Providers Care Vertica Architect Name Role Phone Donell Donis MD Primary Care Provider [phone] Allergies Active Allergy Reactions Criticality Noted Date [...] age to complete this topic Insurance MEDICARE [facility] Care Teams Vertica Architect Relationship Specialty Start Date End Date Donell Donis MD [address] [place] [address] Dr [place] PCP - General Smoked Meat Preparer 08/01/16
== END 2025-05-08 12:19 | disposition home or self-care (01) ==
LOC: HO.US 12:18
PROVIDERS: Visit Provider Student in an Organized Health Care Education/Training Program
DX: R33.9 Retention of urine, unspecified (principal)
CPT/HCPCS: 76770

== ENCOUNTER → 2025-05-08 12:21 | Outpatient (BNV) | payer MEDICARE, SELFPAY | PROVIDERS: Visit Provider Radiology Diagnostic Radiology | DX: R33.9 Retention of urine, unspecified (principal) | CPT/HCPCS: 76770 ==

== ENCOUNTER 2025-05-14 11:07 | Outpatient (REF) | payer MEDICARE, SELFPAY ==
[2025-05-14 12:08] LABS: Appearance Urine Clear; Glucose Urine UA Negative (Negative); PH 5.0 (5.0-9.0); Specific Gravity - Urine 1.025 (1.005-1.025); UMIC TRIGGER UA YES
--- OUTSIDE RECORDS SUMMARY | 2025-05-14 13:25 | XMS_ITS | Clinical Summary ---
Author Organization [facility] Address [address] [place], [place] [address] Phone Care Team Providers Care Synchronizer Name Role Phone Janes Espinal MD Primary Care Provider [phone] Social History Tobacco Use Types Packs/Day Years [...] Insurance MED[place] PART A [place] [id number] [facility] MEDEX SUPPLEMENT MEDICARE PART A & B [facility] MEDEX SUPPLEMENT MEDICARE PART A & B Member Subscriber Plan / Payer ( fective 2019-Present) Name:Jasmin Hernandezline Member ID:[id number] Relation to Subscriber:Self Name:David Shivani Subscriber ID:[id number] Payer ID:[id number] Group ID:Not on file Type:Medicare Address: [employer] [address] [place] [phone] [email or web address] MEDEX SUPPLEMENT MEDICARE PART A & B [email or web address] MEDEX SUPPLEMENT MEDICARE PART A & B [email or web address] MEDEX SUPPLEMENT MEDICARE PART A & B [email or web address] MEDEX SUPPLEMENT Care Teams Synchronizer Relationship Specialty Start Date End Date Janes Espinal MD [address] [place] [address] [place] [address] PCP - General Internal Medicine 10/18/22 Additional Source Comments The information contained in this document represents components of the legal health record. It is not the complete legal health record.[facility]
--- OUTSIDE RECORDS SUMMARY | 2025-05-14 13:25 | XMS_ITS | Encounter Summary ---
Author Organization [facility] Address [address] [place], [place] [id number] Phone Care Team Providers Care Court Crier Name Role Phone Pcp, Unknown Primary Care Provider Janes Aldridge MD Primary Care Provider [phone] Reason for Referral * Hospital - Outpatient - Closed Specialty Diagnoses / Procedures Referred By Geraldo gallardo Referred To Contact Radiology Diagnoses TIA (transient ischemic attack) Tinnitus, unspecified laterality Procedures US Carotid Duplex Complete (Bilateral) Gagandeep Guevara MD Phone: tel: fax: mailto:[email or web address] Referral ID Status Reason Start Date Expiration Date Visits Re quested Visits Authorized [id number] Closed 10/03/2022 1 1 Encounter Details Date Type Department Care Team (Latest Contact Info) Description 10/03/2022 Transcribe Orders [facility] Department [address] [place] [id number] Gagandeep Guevara MD [address] [place] [address], [address] [place] [address] [email or web address] TIA (transient ischemic attack) (Primary Dx); [...] hemodynamically significant ICA stenoses demonstrated. POS - [id number] Narrative 10/19/2022 10:57 AM EDT COMPARISON: None [...] or hemodynamically significant ICA stenosesdemonstrated. POS - [id number] us Gagandeep Guevara MD CV US NEUROVASCULAR Final Re sult documented in this encounter Visit Diagnoses Diagnosis TIA (transient ischemic attack)- Primary Unspecified transient cerebral ischemia Tinnitus, unspecified laterality TIA (transient ischemic attack) Unspecified transient cerebral ischemia Tinnitus, unspecified laterality documented in this encounter Care Teams Court Crier Relationship Specialty Start Date End Date Pcp, Unknown PCP - General 10/06/22 10/17/22 Janes Espinal MD [address] [place] [address] [place] [address] PCP - General Internal Medicine 10/18/22 documented as of this encounter Additional Source Comments The information contained in this document represents components of the legal health record. It is not the complete legal health record.[facility]
--- OUTSIDE RECORDS SUMMARY | 2025-05-14 13:25 | XMS_ITS | Clinical Summary ---
Author Organization [address] [facility] Address [address] [place] [address] Phone Care Team Providers Care Senior Front End Developer Name Role Phone Donell Donis MD Primary Care Provider [phone] Allergies Active Allergy Reactions Criticality Noted Date [...] age to complete this topic Insurance MEDICARE [facility] Care Teams Senior Front End Developer Relationship Specialty Start Date End Date Donell Donis MD [address] [place] [address] Dr [place] PCP - General Entry Level Civil Engineer 08/01/16
== END 2025-05-14 11:08 | disposition home or self-care (01) ==
LOC: HO.LAB 11:07
PROVIDERS: Visit Provider Nurse Practitioner Family
DX: R39.9 Unspecified symptoms and signs involving the genitourinary system (principal)
CPT/HCPCS: 81001; 87086

== ENCOUNTER 2025-05-16 09:51 | Outpatient (REF) | payer MEDICARE, SELFPAY ==
--- NOTE | ~2025-05-16 | XR_ITS ---
EXAMINATION: XR LUMBOSACRAL SPINE CLINICAL INFORMATION: M54.50 - Low back pain, unspecified COMPARISON: X-rays 01/28/2022 TECHNIQUE: Three views of the lumbosacral spine. FINDINGS: 5 lumbar type vertebral bodies. Vertebral body height and alignment is maintained. No visible acute fracture, dislocation or suspicious bony lesion seen. Multilevel disc height loss and endplate osteophytes, including involving L2-3, L3-4 disc spaces. Redemonstrated posterior metallic device stabilizing the L4-5 spinous processes . Facet degeneration at L4-5, L5-S1. SI joints are intact. Redemonstrated radiopaque densities in the right midabdomen the paraspinal region, could reflect a phlebolith versus stone. Multiple phleboliths otherwise seen in the bones, stable. Surgical clips in the right pelvis.. XR/XR lumbar spine 2-3V IMPRESSION: Multilevel lumbar spondylosis. No evidence of acute fracture or dislocation. Redemonstrated is a metallic device stabilizing the spinous process of the L4-L5 disc level, similar to previous. Electronically signed by: Aj Grove MD 05/16/2025 01:22 PM [facility]
--- OUTSIDE RECORDS SUMMARY | 2025-05-16 11:24 | XMS_ITS | Clinical Summary ---
Author Organization [facility] Address [address] [place], [place] [id number] Phone Care Team Providers Care Autism Teacher Name Role Phone Janes Espinal MD Primary Care Provider [phone] Social History Tobacco Use Types Packs/Day Years [...] [place] [id number] [facility] MEDEX SUPPLEMENT MEDICARE PART A & B [facility] MEDEX SUPPLEMENT MEDICARE PART A & B Member Subscriber Plan / Payer ( fective 2019-Present) Name:Jasmin Hernandezline Member ID:[id number] Relation to Subscriber:Self Name:David Shivani Subscriber ID:[id number] Payer ID:[id number] Group ID:Not on file Type:Medicare Address: [employer] [address] [place] [id number] [employer] MEDEX SUPPLEMENT MEDICARE PART A & B [employer] SUPPLEMENT MEDICARE PART A & B [employer] SUPPLEMENT MEDICARE PART A & B [employer] SUPPLEMENT Care Teams Autism Teacher Relationship Specialty Start Date End Date Janes Espinal MD [address] [place] [address] [place] [address] PCP - General Internal Medicine 10/18/22 Additional Source Comments The information contained in this document represents components of the legal health record. It is not the complete legal health record.[facility]
--- OUTSIDE RECORDS SUMMARY | 2025-05-16 11:24 | XMS_ITS | Clinical Summary ---
Author Organization [address] [facility] Address [address] [place] [address] Phone Care Team Providers Care Heat Treat Technician Name Role Phone Donell Donis MD Primary Care Provider [phone] Allergies Active Allergy Reactions Criticality Noted Date [...] age to complete this topic Insurance MEDICARE [facility] Care Teams Heat Treat Technician Relationship Specialty Start Date End Date Donell Donis MD [address] [place] [address] Dr [place] PCP - General Score Caller 08/01/16
--- OUTSIDE RECORDS SUMMARY | 2025-05-16 11:24 | XMS_ITS | Encounter Summary ---
Author Organization [facility] Address [address] [place], [place] [id number] Phone Care Team Providers Care Esl Professor Name Role Phone Pcp, Unknown Primary Care Provider Janes Aldridge MD Primary Care Provider [phone] Reason for Referral * Hospital - Outpatient - Closed Specialty Diagnoses / Procedures Referred By Geraldo gallardo Referred To Contact Radiology Diagnoses TIA (transient ischemic attack) Tinnitus, unspecified laterality Procedures US Carotid Duplex Complete (Bilateral) Gagandeep Guevara MD Phone: tel: fax: mailto:[email or web address] Referral ID Status Reason Start Date Expiration Date Visits Re quested Visits Authorized [id number] Closed 10/03/2022 1 1 Encounter Details Date Type Department Care Team (Latest Contact Info) Description 10/03/2022 Transcribe Orders [facility] Department [address] [place] [id number] Gagandeep Guevara MD [address] [place] [address], [address] [place] [address] [email or web address] TIA (transient ischemic attack) (Primary Dx); [...] hemodynamically significant ICA stenoses demonstrated. POS - [id number] Narrative 10/19/2022 10:57 AM EDT COMPARISON: None [...] or hemodynamically significant ICA stenosesdemonstrated. POS - [id number] us Gagandeep Guevara MD CV US NEUROVASCULAR Final Re sult documented in this encounter Visit Diagnoses Diagnosis TIA (transient ischemic attack)- Primary Unspecified transient cerebral ischemia Tinnitus, unspecified laterality TIA (transient ischemic attack) Unspecified transient cerebral ischemia Tinnitus, unspecified laterality documented in this encounter Care Teams Esl Professor Relationship Specialty Start Date End Date Pcp, Unknown PCP - General 10/06/22 10/17/22 Janes Espinal MD [address] [place] [address] [place] [address] PCP - General Internal Medicine 10/18/22 documented as of this encounter Additional Source Comments The information contained in this document represents components of the legal health record. It is not the complete legal health record.[facility]
== END 2025-05-16 09:52 | disposition home or self-care (01) ==
LOC: HO.XRAY 09:51
DX: M54.50 Low back pain, unspecified (principal)
CPT/HCPCS: 72100

== ENCOUNTER → 2025-05-16 09:54 | Outpatient (BNV) | payer MEDICARE, SELFPAY | PROVIDERS: Visit Provider Radiology Diagnostic Ultrasound | DX: M47.816 Spondylosis without myelopathy or radiculopathy, lumbar region (principal) | CPT/HCPCS: 72100 ==